=== PATIENT | male | born 1960 | race Caucasian/White ===

== ENCOUNTER → 2017-03-10 12:10 | Outpatient (CLI) | payer OTHER | END | disposition home or self-care (01) | LOC: D.CT 12:10 | DX: I71.4 Abdominal aortic aneurysm, without rupture (principal) ==

== ENCOUNTER → 2017-04-21 12:35 | Outpatient (CLI) | payer OTHER | END | disposition home or self-care (01) | LOC: D.US 12:35 | DX: I65.23 Occlusion and stenosis of bilateral carotid arteries (principal) ==

== ENCOUNTER 2017-05-20 05:00 | Inpatient (IN) | payer OTHER ==
--- NOTE | 2017-05-14 11:34 | HP ---
PATIENT: TRENT ALLISON MEDICAL RECORD: [id number] ACCOUNT: [id number] LOCATION:[facility] : 60 ADMISSION DATE: 05/20/17 HISTORY AND PHYSICAL EXAMINATION TRENT Hercules (57yo, M) ID# [id number]. Date/Time04/14/2017 01:44KJIWY08/09/[address] [place] [address] Dept.[facility] ClinicProviCesar JAVIER MDInsuranceMed Primary: [facility] [employer] Insurance # : [id number] Policy/Group # : [id number] Referring Provider Name : MENA TAM Employer Name : [email or web address] Prescription: [employer] - This member could not be found in the payer's files. Please verify coverage and all member demographic information. Chief Complaint AAA, abdominal aortic aneurysm Patient's Care Team Referring Provider (): MENA TAM: [address] [place] [phone], , Patient's Pharmacies [facility] (ERX): [address] [place] [phone], , Vitals BP:134/88 sitting L arm 04/14/2017 01:31 pmHR:88R/R 04/14/2017 01:31 pmHt:5 ft 9 in 04/14/2017 01:30 pmWt:195 lbs 04/14/2017 01:28 pmBMI:28.8 04/14/2017 01:30 pmAllergies Reviewed Allergies CODEINE: ItchingMedications Reviewed Medications aspirin 325mg daily04/14/17 enteredCindy Brownatorvastatin 40 mg tablet Take 1 tablet(s) every day by oral route.04/12/17 enteredKathy Wilsonlisinopril 20 mg tablet Take 1 tablet(s) every day by oral route.04/12/17 enteredKathy Wilsonmetoprolol succinate ER 100 mg tablet,extended release 24 hr Take 1 tablet(s) every day by oral route.04/12/17 enteredKathy WilsonNitrostat 0.[address] 1 tablet(s) by sublingual route as directed.04/14/17 Tod PearlPlavix 75 mg tablet Take 1 tablet(s) every day by oral route.04/14/17 Tod PearlProblems Reviewed Problems Abdominal aortic aneurysm without rupture - Onset: 04/12/2017 Family History Discussed Family History Father- Diabetes mellitus - Heart diseaseSocial History Discussed Social History Cardiology Family history of heart disease?: Y Smoking Status: Current every day smoker Smoker (1 PPW) Has smoked since age: 20 High Cholesterol: Y High blood pressure: Y HISTORY AND PHYSICAL [id number] TRENT ALLISON Exercise level: Occasional Overweight: Y Obese: Y Diabetes: N Alcohol intake: None Diet: Regular Marital status: Is blood transfusion acceptable in an emergency?: Y Tobacco-years of use: (Notes: since age 20) Surgical History Reviewed Surgical History Stent placemt retro carotid - 10/17/2003 Hernia repair w/mesh - 10/17/1998 Past Medical History Discussed Past Medical History Coronary Artery Disease: Y Hyperlipidemia: Y Hypertension: Y Documents for Discussion N/A Screening None recorded. HPI abdominal aortic aneurysm Coronary artery disease status post ROS Patient reports arthralgias/joint pain but reports no muscle aches, no muscle weakness, no back pain, and no swelling in the extremities. He reports no fever, no night sweats, no significant weight gain, no significant weight loss, and no exercise intolerance. He reports no dry eyes, no irritation, and no vision change. He reports no difficulty hearing and no ear pain. He reports no frequent nosebleeds and no nose/sinus problems. He reports no sore throat, no bleeding gums, no snoring, no dry mouth, no mouth ulcers, no or a l abnormalities, and no teeth problems. He reports no jugular vein distension and no swollen glands. He reports no chest pain, no arm pain on exertion, no shortness of breath when walking, no shortness of breath when lying down, no palpitations, and no kn o wn heart murmur. He reports no cough, no wheezing, no shortness of breath, and no coughing up blood. He reports no abdominal pain, no vomiting, normal appetite, no diarrhea, not vomiting blood, no nausea, and no constipation. He reports no incontinence, n o difficulty urinating, no hematuria, and no increased frequency. He reports no abnormal mole, no jaundice, and no rashes. He reports no loss of consciousness, no weakness, no numbness, no seizures, no dizziness, and no headaches. He reports no depression, no sleep disturbances, feeling safe in relationship, and no alcohol abuse. He reports no fatigue. He reports no swollen glands and no bruising. He reports no runny nose, no sinus pressure, no itching, no hives, and no frequent sneezing. ROS as noted in the HPI Physical Exam Patient is a 57-year-old male. Constitutional: General Appearance well nourished and developed and healthy-appearing. Level of Distress NAD. Ambulation ambulating normally. Cardiovascular: Apical Impulse not displaced or no thrill. Heart Auscultation normal s1 and s2; no murmurs, rubs, or gallops; and RRR. Arterial Pulses no abdominal aorta HISTORY AND PHYSICAL [id number] ALLISON,TRENT RAY bruits, femoral bruits, or popliteal bruits and 2+ bilateral, carotid 2+ bilateral, femoral 2+ bilateral, popliteal 2+ bilateral, and dorsalis p rebekah 2+ bilateral. Edema no edema or varicosities. Lungs: Repiratory Effort no dyspnea. Percussion no hyperresonance or dullness or flatness. Auscultation no wheezing, rhonchi, or rales / crackles and breathing sounds normal, good air movement, and CTA except as noted. Abdomen: Bowl Sounds normal. Inspection and Palpation no tenderness, guarding, masses, or rebound tenderness and soft and non-distended; abdominal aortic aneurysm nontender. Liver non-tender and no hepatomegaly. Spleen non-tender and no splenomegaly. Hernia none palpable. Musculoskeletal System: Gait And Stance normal gait and stance. Digits and Nails normal nails and no cyanosis. Neurologic: Cranial Nerves grossly intact. Reflexes DTRs 2+ bilaterally throughout. Sensation grossly intact. Lymph Nodes: Lymph Nodes no cervical LAD, supraclavicular LAD, axillary LAD, or inguinal LAD. Eyes: Lids and Conjunctivae no discharge or pallor and non-injected. Pupils PERRLA. Cornea grossly intact. EOM EOMI. Lens clear. Sclerae non-icteric. Neck: Neck no masses, enlarged lymph nodes, or carotid bruits and supple and trachea midline. Thyroid no enlargement or nodules and non-tender. Skin: Inspection and Palpation no rash, lesions, ulcers, jaundice, or abnormal nevi. Assessment / Plan abdominal aortic aneurysm Dental abscess 1. Abdominal aortic aneurysm without rupture I71.4: Abdominal aortic aneurysm, without rupture ABDOMINAL AORTIC ANEURYSM: CARE INSTRUCTIONS Discussion Notes needs dental work done before aneurysm repair Need carotid Doppler studies I have discussed his disease process with him and his in detail as well as the alternative methods of treatment. We discussed abdominal aortic aneurysm repair including the expected benefits and risk which include bleeding, infection, stroke, , and the imponderables. He understands all the above and wishes to proceed with planned procedure. HISTORY AND PHYSICAL [id number] TRENT ALLISON EDWARD MD at 1134 CC: [id number] DICTATION DATE: 04/14/17 1330 SALES AND MARKETING ASSOCIATE: KARISSA 05/13/17 1408 PRE IN [facility] [address] [place] [address]
[2017-05-19 09:53] LABS: BASOPHILS 0.5 % (0-2); EOSINOPHILS 5.4 % (0-7); HEMATOCRIT 42.8 % (42.0-54.0); HEMOGLOBIN 14.6 g/dL (13.5-17.5); IMMATURE GRANULOCYTES 0.7 % (0-5); LYMPHOCYTES 34.1 % (15-50); MCH 32.2 pg (26.0-34.0); MCHC 34.1 g/dL (31.0-37.0); MCV 94.3 fL (80.0-100.0); MEAN PLATELET VOLUME 9.8 fL (7.4-10.4); MONOCYTES 10.1 % (2-11); NEUTROPHILS 49.2 % (40-80); PLATELET COUNT 212 10x3/uL (130-400); RBC 4.54 10x6/uL (4.20-6.10); RDW 13.6 % (11.5-14.5); WBC 7.6 10x3/uL (4.8-10.8)
[2017-05-19 09:58] LABS: INR 0.92 (0.85-1.17); PROTIME 12.2 SECONDS (11.6-15.0)
[2017-05-19 10:06] LABS: ALBUMIN 3.1 g/dL (3.4-5.0); ANION GAP 10.1 mmol/L (8-16); BILIRUBIN - TOTAL 0.51 mg/dL (0.2-1.3); CALCIUM 8.2 mg/dL (8.5-10.1); CARBON DIOXIDE 29.3 mmol/L (21.0-32.0); CREATININE - SERUM 1.2 mg/dL (0.6-1.3); POTASSIUM - SERUM 3.4 mmol/L (3.5-5.1); PROTEIN - SERUM 6.6 g/dL (6.4-8.2)
[2017-05-19 10:28] LABS: APPEARANCE CLEAR (CLEAR); BACTERIA FEW /hpf (NONE SEEN); BILIRUBIN NEGATIVE (NEGATIVE); COLOR DK YELLOW (YELLOW); EPITHELIAL CELLS 0-5 /hpf (0-5); GLUCOSE NEGATIVE (NEGATIVE); HYALINE CAST OCC /lpf (NONE SEEN); KETONE NEGATIVE (NEGATIVE); LEUKOCYTE ESTERASE TRACE (NEGATIVE); MUCUS <1+ /lpf (NONE SEEN); NITRITE NEGATIVE (NEGATIVE); PROTEIN NEGATIVE (NEGATIVE); RED CELLS - URINE OCC /hpf (0-5); SPECIFIC GRAVITY 1.015 (1.005-1.020); WHITE CELLS - URINE 0-5 /hpf (0-5)
[~2017-05-20] VITALS: Ht 175.3 cm; Wt 90.7 kg
[2017-05-20] VITALS (54 sets, daily range): BP systolic 98–149; BP diastolic 56–651; BMI 28.8; BMI 29.6
[~2017-05-20 05:00] MED LIST: ASPIRIN325 MG PO; LIPITOR40 MG PO; LISINOPRIL-HCTZ1 T13 PO; NITROQUICK0.4 MG SL; OMEPRAZOLE40 MG PO; TOPROL XL100 MG PO
--- NOTE | 2017-05-20 18:54 | NUR ---
1600-PPP MARIANNA-GROINS SOFT TO TOUCH 1700--PPP MARIANNA-GROINS SOFT TO TOUCH 1800--PPP MARIANNA-GROINS SOFT TO TOUCH-CLEAR LIQUID TRAY-HOB AT 30DEGREES
--- NOTE | 2017-05-20 19:00 | NUR ---
1900: Pt rec'd resting HOB 30 degrees with eyes open to verbal. Pupils CHAZ+ bilat. 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 Pt able to move x4 extrem vs gravity. LOCx4. Pt without c/o pain, tingling, numbness, nausea, or vomitting at this time. Pt breathing 022LNC with RR8-10x with SPO2 98%. Lungs clear bilat with auscultation and MMP with no cyanosis noted. S1S2 regular SR 79 bpm on CM. Right radial ART line transduced to CM with proper w/f with SBP 110-120. LDLSC with Cleviprex infusing as per IV gtts. Bilateral groin incision sites CDI with no bleeding, swelling, oozing, or hematoma noted. Pt dorsalis pedis bilaterally obtainable via doppler. ABD soft NT BSx4 active. Criticore vidal to gravity with >30 cc/hr yellow UOP.
--- NOTE | 2017-05-20 21:00 | NUR ---
2100: Family at bedside. Update provided.
--- NOTE | 2017-05-20 22:00 | NUR ---
2200: Pt repositioned for comfort at this time. Pt remains on Cleviprex gtt with SBP 110's via right radial ART line. Pt without c/o at this time.
--- NOTE | 2017-05-20 23:35 | NUR ---
2335: Pt repositioned for comfort at this time. No change in RESP/CV/NV status.
[2017-05-21] VITALS (81 sets, daily range): BP systolic 93–165; BP diastolic 48–89; Ht 175.3 cm; Wt 90.7 kg
--- NOTE | 2017-05-21 01:30 | NUR ---
0130: Pt resting with eyes closed. Pt remains SR on CM. Continue to titrate Cleviprex as per orders. Incision sites unchanged from assessment. UOP >30cc/hr clear yellow. See I/O.
--- NOTE | 2017-05-21 03:30 | NUR ---
0330: Pt repositioned for comfort at this time. Pt remains with SBP 110-120, continue to titrate Cleviprex as per orders. Pt remains on 022LNC with RR12x with SPO2 96%. No change in periphreal pulses or incision sites from assessment.
--- NOTE | 2017-05-21 05:24 | NUR ---
0520: Pt bilateral groin sites CDI with no s/s of bleeding, oozing, or swelling. Bilateral pulses obtained via doppler with strong quality. Pt denies pain. States groin is sore. Pt SBP remains 130's via Right radial ART line. Cleviprex as per IV gtts.
[2017-05-21 05:29] LABS: HEMATOCRIT 34.3 % (42.0-54.0); MCH 31.7 pg (26.0-34.0); MCHC 33.8 g/dL (31.0-37.0); MCV 93.7 fL (80.0-100.0); MEAN PLATELET VOLUME 9.7 fL (7.4-10.4); RBC 3.66 10x6/uL (4.20-6.10); RDW 13.7 % (11.5-14.5)
[2017-05-21 05:34] LABS: HEMOGLOBIN 11.6 g/dL (13.5-17.5); WBC 10.1 10x3/uL (4.8-10.8)
[2017-05-21 05:40] LABS: CALC OSMOLALITY 276 mosm/kg (275-300); CARBON DIOXIDE 30.1 mmol/L (21.0-32.0); CHLORIDE - SERUM 103 mmol/L (98-107); GLUCOSE 100 mg/dL (74-106); POTASSIUM - SERUM 2.6 mmol/L (3.5-5.1); SODIUM 139 mmol/L (136-145); UREA NITROGEN 9 mg/dL (7-18); eGFR NON AFRICAN AMERICAN 82 mL/min (90-120)
--- NOTE | 2017-05-21 11:13 | OP ---
PATIENT NAME: TRENT ALLISON MEDICAL RECORD: [id number] :60 LOCATION:[facility].CV07 ADMISSION DATE:05/20/17 SURGEON: SANDRINE GAINES MD DATE OF OPERATION: 05/20/2017 SURGEON: Sandrine Gaines MD ANESTHESIA: General endotracheal, Dr. Poon. OPERATION PERFORMED: Endovascular stent repair of abdominal aortic aneurysm. PREOPERATIVE DIAGNOSIS: Abdominal and right iliac artery aneurysm. POSTOPERATIVE DIAGNOSIS: Abdominal and right iliac artery aneurysm. INDICATION FOR OPERATION: Enlarging abdominal and iliac artery aneurysms. FINDINGS OF THE OPERATION: Large abdominal and right iliac artery aneurysm, post-endovascular stent repair, there were no endoleaks and good seal. FLUOROSCOPY TIME: 26 minutes 37 seconds. CONTRAST: Isovue 120 mL. DESCRIPTION OF PROCEDURE: After informed consent, adequate preoperative medication evaluation, the patient was brought to the operating room, placed on the table in the supine position. After induction of general endotracheal anesthesia and application of appropriate monitoring devices, the chest, abdomen and both groins were prepped and draped in a sterile field, utilizing Betadine scrub, alcohol, and Betadine solution. A Betadine-impregnated drape was also used. Oblique incisions were made above the inguinal ligaments bilaterally and dissection carried down to fascia. The ligaments were elevated. The distal iliac and common femoral arteries were dissected free of surrounding structures, surrounding them with vessel loops. The patient was given a calculated dose of heparin. Bilateral 8-Sinhala sheaths were placed. Exchange of Glidewire on the ipsilateral side for a stiff wire was performed and the 25 x 120 x 20 x 40 AFX to bifurcated device was loaded on to the stiff wire. The contralateral wire was also introduced and snared from the contralateral side and brought on to the seal. The AFX device was then deployed above the bifurcation and seated onto the bifurcation. The contralateral limb was deployed by pulling the yellow limb cover and advancing the pigtail over the contrawire until the tip was in contact with the wire lock. The wire was then placed into the descending aorta. The ipsilateral limb was then deployed and retracted. A 25 x 95 suprarenal endograft was then deployed at the renal arteries and placed in the main body. The pigtail catheter was then reinserted into the suprarenal aorta. The main body and right limb were dilated with a Reliant balloon. The left iliac was ballooned with a 10 x 20 balloon. An aortogram was then performed that delineated the right iliac aneurysm and takeoff of the hypogastric and external iliac. Attention was then turned towards the superior portion of the graft, which was lower than I wanted; therefore, another cuff was placed just at the renal arteries and dilated arteriogram demonstrated good seal and Ovation 28 x 45 was then deployed in the right limb to the level of the hypogastric with good coverage of the common iliac vessel. Another aortogram performed demonstrated OPERATIVE REPORT [id number] TRENT ALLISON good flow through both limbs and no endoleaks. The wires, catheters and sheaths were removed. The arteries were closed in standard technique utilizing 2 layers of running 6-0 Prolene. All maneuvers to remove trapped air were performed. The clamps were removed sequentially and there was excellent flow through both. The patient was given a calculated dose of protamine to reverse the heparin and hemostasis was achieved. The wounds were irrigated with copious amounts of antibiotic solution and normal saline. There was no active bleeding. Instrument count and sponge count were correct times 2. Wound was closed in layers utilizing 2-0 Vicryl on deep subcutaneous tissue, 5-0 subcuticular Vicryl on the skin. Sterile dressings were applied. The patient tolerated the procedure well and transferred to cardiovascular recovery in stable condition. 1. Open femoral exposure bilaterally, 76681-00, catheter sheath placement, nonselective into the aorta, 01226-15. 2. Endoluminal AAA repair with unibody device, 56560. A. RAD S&I Endo AAA repair, 40386-92. 3. Extension prosthesis initial vessel, 91315. A. RAD S&I extension prosthesis, 61522-32. 4. Extension prosthesis additional vessel, 21756. A. RAD S&I, 96383-14. 5. Repair of blood vessel to right lower extremity, 11962-94. TRANSINT:[id number] Voice Confirmation ID: [id number] DOCUMENT ID: [id number] SANDRINE GAINES MD at 1113 CC: [id number] DICTATION DATE: 05/20/17 1138 SHAGGER: 05/20/17 1353 ADM IN [facility] [id number] [place] [address]
--- NOTE | 2017-05-21 16:04 | NUR ---
0715-RECIEVED PER FLOW SHEET-CLEVIPREX INFUSING PER PARAMETER AT 7MG-NOTED SR -AWAKE AND ALERT-MARIANNA GROINS SOFT TO TOUCH-PPP WITH FINGER TIPS AND FEET HOT TO TOUCH 0830-30 DEGREE UP FOR CLEAR LIQUID TRAY-NO CHANGES TO GROIN SITES AND FEET REMAIN HOT TO TOUCH 0915-FAMILY AT BEDSIDE 1030-DR JAVIER IN UNIT-ORDERS RECIEVED -GROIN SITES REMAIN SOFT AND MARIANNA PP R RADIAL ADENIKE D/C'D PER PROTOCOL-TIP INTACT-HEMOSTASIS OBTAINED-NO HEMATOMA-GOOD COLOUR TO FINGER TIPS-MARSH CATH D/C'D PER PROTOCOL-TOLERATED WELL BY PT-PLACED ON TELEMETRY PACK-CLEVIPREX TITRATED TO OFF NIBP 110SYS-ASSISTED TO BEDSIDE TOILET- REMAINS IN RM FOR PT COMFORT AND SAFETY 1130-PT UP IN CHAIR 1230-SR ON MONITOR-REG DIET TAKEN 1330-AMBULATING IN CTHNAXB-[id number] 1410-GROINS SOFT TO TOUCH PPP MARIANNA -PT RESTING IN BED 1450-AWAKENED PT FOR BP CHECK-NOTED SYS 165-CLEVIPREX RESTARTED AT 2.5MG PER PARAMETER AND TITRATED 1515-NIBP AT 138/87-PT REMAINS SITTING IN CHAIR-TELEMETRY IN PLACE
--- NOTE | 2017-05-21 19:00 | NUR ---
1900: Pt bilateral groin sites CDI with no s/s of swellling, bleeding, oozing noted. Bilateral dorsalis pedis pulse obtainable via palpation. Pt denies difficulty with elimination. Pt SBP 110-120 with Cleviprex gtt infusing at 2 mg/hr.
--- NOTE | 2017-05-21 21:00 | NUR ---
2100: Pt here at bedside. Update provided. Pt up in geronimo walking without assistance with steady gait.
--- NOTE | 2017-05-21 23:00 | NUR ---
2300: Pt up OOB per self. Pt gait steady and no c/o at this time. Pt remains SR 90's with SBP 110-120's with Cleviprex infusing without change.
[2017-05-22] VITALS (9 sets, daily range): BP systolic 97–138; BP diastolic 55–77
--- NOTE | 2017-05-22 | NUR ---
0000: Pt resting up in chair at this time. Pt room air with LU45-86u with SPO2 92%. Pt SBP <140. Cleviprex off at this time. No change in Incision sites. No bleeding, oozing, or swelling noted.
--- NOTE | 2017-05-22 02:00 | NUR ---
0200: Pt remains up in chair at this time. SBP cont <140 with Cleviprex gtt off. No change in pt RESP/CV/NV status.
--- NOTE | 2017-05-22 04:00 | NUR ---
0400: Pt resting in bed with eyes closed at this time. Pt SPO2 94% at this time on RA. Cleviprex remains off. Pt SR 90's on CM. No change in RESP/CV/NV status.
--- NOTE | 2017-05-22 05:00 | NUR ---
0500: Pt resting up in chair. Pt gets OOB per self and walks with steady gait. Pt uses bathroom per self. Pt denies difficulty with elimination. Pt remains SBP 120's with all gtts off.
--- NOTE | 2017-05-22 10:54 | NUR ---
0700-RECIEVED ASLEEP-SITTING UP IN CHAIR-RESP REG AND EVEN-SR ON PORTABLE TELEMETRY-NIBP IN PLACE 0830-AWAKE AND ALERT-PT STATED NOT ABLE TO SLEEP 0900-NOTED BOUNDING PEDAL PULSES MARIANNA-SOFT GROIN TO TOUCH
[2017-05-22] MEDS ORDERED: PLAVIX75 MG PO (12:44)
--- NOTE | 2017-05-22 12:44 | NUR ---
1215-DR JAVIER AT [facility]-ORDERS RECIEVED AND NOTED-L CVL D/C'D PER PROTOCOL BETADINE OINT APPLIED-DISCHARGE INSTRUCTIONS GIVEN TO BOTH PT AND WITH APPARENT UNDERSTANDING-
[2017-05-22] MEDS ORDERED: POTASSIUM20 MEQ/11 PO (12:46)
--- NOTE | 2017-05-22 13:20 | NUR ---
DISCHARGED VIA WHEELCHAIR-ACCOMPANIED BY
== END 2017-05-22 13:21 | disposition home or self-care (01) | DRG 269 ==
LOC: D.CVICU 05:00 → D.SDCHOLD 05:00 → D.CVICU 11:52
PROVIDERS: ADMIT Internal Medicine Cardiovascular Disease
DX: I71.4 Abdominal aortic aneurysm, without rupture (principal); I72.3 Aneurysm of iliac artery; E78.00 Pure hypercholesterolemia, unspecified; I10 Essential (primary) hypertension; E66.9 Obesity, unspecified; Z68.29 Body mass index [BMI] 29.0-29.9, adult; I25.10 Atherosclerotic heart disease of native coronary artery without angina pectoris; F17.200 Nicotine dependence, unspecified, uncomplicated

== ENCOUNTER 2017-07-25 10:20 | Outpatient (CLI) | payer OTHER ==
--- NOTE | ~2017-07-25 | HEMODYNAMI ---
PATIENT:TRENT ALLISON MEDICAL RECORD: [id number] : 60 LOCATION[facility] [place] [facility] [id number] ADMISSION DATE: 07/25/17 Generatedon:07/25/201716:13 Patient name: TRENT ALLISON Patient #: [id number] SSN: : 1960 Date of study: 07/25/2017 Page: Of Hemodynamic Procedure Report Patient Data Patient Demographics Procedure consent was obtained First Name: TRENT Gender: Male Last Name: KEEGAN : 1960 Middle Initial: BRIAN Age: 57 year(s) Patient #: [id number] Race: Unknown Additional ID: [id number] Contact details Address: [address] [place], [place] [address] State: [place] City: [place] Zip code: [address] Admission Admission Data Admission Date: 07/25/2017 Admission Time: 12:44 Room #: D.2116 Procedure Procedure Types Cath Procedure Diagnostic Procedure LHC LHC w/Coronaries PCI Procedure Coronary Stent Initial Miscellaneous Procedures Moderate Sedation up to 30 minutes Peripheral Cath Diagnostic Procedure Cath Peripheral Shrjw-Xbchbxh-Btk-Off Procedure Description Procedure Date Procedure Date: 07/25/2017 Procedure Start Time: 15:52 Procedure End Time: 16:10 Procedure Staff Name Function Tisha Xie RT Scrub Gianfranco Salcedo MD Performing Physician Saray Long MD Ordering physician Wolf Helms RN Nurse Erika Covarrubias RT Monitor Procedure Data Cath Procedure Fluoroscopy Diagnostic fluoroscopy Total fluoroscopy Time: 4.4 time: 4.4 min min Diagnostic fluoroscopy Total fluoroscopy dose: dose: 1038 mGy 1038 mGy Contrast Material Contrast Material Type Amount (ml) Isovue 300 129 Entry Location Entry Primary Successful Side Size Upsize Upsize Entry Closure Succes sful Closure Location (Fr) 1 (Fr) 2 (Fr) Remarks Device Remarks Femoral Right 5 Fr 6 Fr Exoseal artery Short Estimated blood loss: 5 ml Diagnostic catheters Device Type Used For End Catheter Placement Cordis 5Fr Pigtail LV Angiography Catheter (MP) Cordis 5Fr JL 4.0 Left Coronary Catheter (MP) Angiography Diagnostic Infinity 5Fr Right Coronary 3DRC catheter Angiography Procedure Complications No complications Procedure Medications Medication Administration Route Dosage 0.9% NaCl I.V. 100 ml/hr Oxygen NC 2 l/min Heparin Flush Bag added to field 2 bags (1000units/500ml NS) Lidocaine 2% added to field 20 Benadryl I.V. 50 mg Versed I.V. 2 mg Fentanyl I.V. 100 mcg Heparin Bolus I.V. 5000 units Hemodynamics Rest Heart Rate: 63 (bpm) Pressure Samples Time Site Value (mmHg) Purpose Heart Use Rate(bpm) 15:52 LV 95/12,16 Snapshot 67 Snapshots Pre Cath Intra NCS Post Cath Vital Signs Time Heart Resp SPO2 etCO2 WD5azmg NIBP (mmHg) Rhythm Pain Sedatio n Rate (ipm) (%) (mmHg) (mmHg) Status Level (bpm) 15:42:34 62 14 98 0 0 184/108(163) NSR 0 (11) 10(A) , No pain 15:47:33 69 17 100 0 0 191/116(171) NSR 0 (11) 10(A) , No pain 15:52:28 72 15 97 0 0 161/94(132) NSR 0 (11) 10(A) , No pain 15:57:17 70 14 95 0 0 157/96(132) NSR 0 (11) 9(A) , No pain 16:02:08 68 14 96 0 0 152/94(137) NSR 0 (11) 9(A) , No pain 16:06:57 72 19 97 0 0 168/97(140) NSR 0 (11) 10(A) , No pain Medications Time Medication Route Dose Verified Delivered Reason Notes Effectiveness by by 15:47:36 0.9% NaCl I.V. 100 Wolf Wolf Per physician ml/hr Scooter Helms RN RN 15:47:49 Oxygen NC 2 Wolf Wolf Per physician l/min Scooter Helms RN RN 15:48:05 Heparin Flush added 2 Wolf Wolf used for Bag to bags Scooter Helms procedure (1000units/500ml field ARIELLE RN NS) 15:48:25 Lidocaine 2% added 20ml Wolf Wolf for local to vial Scooter Helms anesthetic field GUZMÁN RN 15:48:42 Benadryl I.V. 50 mg Wolf Wolf Per physician Scooter Helms RN RN 15:52:28 Versed I.V. 2 mg Wolf Wolf for sedation Scooter Helms RN RN 15:52:42 Fentanyl I.V. 100 Wolf Wolf for sedation mcg Scooter Helms RN RN 16:03:28 Heparin Bolus I.V. 5000 Wolf Wolf for units Scooter Helms anticoagulation RN summer internship Log Time Note 15:24:03 Time tracking: Regular hours 15:24:03 Tisha Counts RT(R) sent for patient. Start room use. 15:24:08 Plan of Care:Hemodynamics will remain stable., Cardiac rhythm will remain stable., Comfort level will be maintained., Respiratory function will remain adequate., Patient/ family verbilizes understanding of procedure., Procedure tolerated without complication., Recovers from procedure without complications.. 15:41:20 Patient received from Med II to CCL 1 Alert and oriented. Tansferred to table in Supine position. 15:41:21 Warm blankets applied, and carole hugger turned on for patient comfort. 15:41:22 Correct patient and procedure confirmed by team. 15:41:24 Signed procedure consent form obtained from patient. 15:41:26 ECG and BP/O2 sat monitors applied to patient. 15:41:27 Vital chart was started 15:41:29 Baseline sample Acquired. 15:41:37 Rhythm: sinus rhythm 15:41:39 Full Disclosure recording started 15:41:44 H&P Date Dictated: 07/25/2017 New H&P dictated by physician.. 15:41:46 Pre-procedure instructions explained to patient. 15:41:47 Pre-op teaching completed and patient verbalized understanding. 15:41:49 Family unavailable. 15:42:02 Is the patient allergic to Iodine/contrast media? No. 15:42:04 Was the patient premedicated? No 15:42:05 Is patient on blood thinner?Yes 15:42:58 ACC The patient was administered the following blood thiners within the last 24 hours: ACCPlavix 15:43:03 Patient diabetic? No. 15:43:06 Previous problem with sedation/anesthesia? No ? 15:44:19 Snore? Yes 15:44:21 Sleep apnea? No 15:44:22 Opens mouth fully? Yes 15:44:22 Deviated septum? No 15:44:23 Sticks out tongue? Yes 15:44:25 Airway obstruction? No ? 15:44:28 Dentures? No ? 15:45:44 Pre procedure: right dorsailis pedis pulse 1+ Palpable, but thready & weak; easily obliterated 15:45:46 Pre procedure: left dorsailis pedis pulse 1+ Palpable, but thready & weak; easily obliterated 15:45:48 Patient pain scale 0/10 ?. 15:45:51 Modified Bijan's test Radial > 7 seconds. 15:46:06 IV patent on arrival in left forearm with 0.9% NaCl at [facility]. 15:47:36 0.9% NaCl 100 ml/hr I.V. was administered by Wolf Helms RN; Per physician; 15:47:49 Oxygen 2 l/min NC was administered by Wolf Helms RN; Per physician; 15:48:05 Heparin Flush Bag (1000units/500ml NS) 2 bags added to field was administered by Wolf Helms RN; used for procedure; 15:48:25 Lidocaine 2% 20ml vial added to field was administered by Wolf Helms RN; for local anesthetic; 15:48:42 Benadryl 50 mg I.V. was administered by Wolf Helms RN; Per physician; 15:50:46 Zero performed for pressure channel P1 15:50:50 Lab results completed and on chart. 15:50:54 Right groin area was prepped with chlora-prep and draped in sterile fashion 15:50:55 Sharps counted by scrub and verified by R.N. 15:50:55 Alarms reviewed by R. N. 15:50:56 --------ALL STOP TIME OUT------ 15:50:56 Physician arrived 15:50:57 Final Timeout: patient, procedure, and site verified with staff and physician. All members of the team are in agreement. 15:50:59 Right groin site verified by team. 15:51:03 Physical assessment completed. ASA score P 2 - A patient with mild systemic disease as per Gianfranco Salcedo MD. 15:51:08 Sedation plan: IV Moderate Sedation Versed, Fentanyl 15:51:19 Use device set Femoral Dx 15:51:20 Medline Cath Pack opened to sterile field. 15:51:20 Bag Decanter opened to sterile field. 15:51:20 Acist Syringe opened to sterile field. 15:51:21 Terumo 5Fr [place] Sheath opened to sterile field. 15:51:22 St Fan 260cm J .035 wire opened to sterile field. 15:51:23 Diagnostic Infinity 5Fr Multipack catheter opened to sterile field. 15:51:23 Acist Manifold opened to sterile field. 15:51:23 Acist Hand Control opened to sterile field. 15:51:24 Tegaderm 4 x 4 opened to sterile field. 15:52:03 Procedure started. 15:52:06 Local anesthetic to right femoral artery with Lidocaine 2% by Gianfranco Salcedo MD.INITIAL ACCESS ONLY 15:52:16 A 5 Fr sheath was inserted into the Right Femoral artery 15:52:18 PERCUTANEOUS ENTRY 19GA needle opened to sterile field. 15:52:23 A Cordis 5Fr Pigtail Catheter (MP) was advanced over the wire and used for LV Angiography. 15:52:28 Versed 2 mg I.V. was administered by Wolf Helms RN; for sedation; 15:52:41 LV hemodynamics recorded. 15:52:42 LV gram done using DOLAN 15:52:42 Fentanyl 100 mcg I.V. was administered by Wolf Helms RN; for sedation; 15:52:44 Injector settings: Ml/sec: 5, Volume: 15, 15:52:51 EF : 50 % 15:53:50 Abdominal angiogram w/ runoff was performed. 15:54:26 Catheter removed. 15:54:36 A Cordis 5Fr JL 4.0 Catheter (MP) was advanced over the wire and used for Left Coronary Angiography. 15:56:11 LCA angiography performed. 15:56:14 Injector settings: Ml/sec: 3, Volume: 6, 15:56:41 Catheter removed. 15:56:56 A Diagnostic Infinity 5Fr 3DRC catheter was advanced over the wire and used for Right Coronary Angiography. 15:57:30 RCA angiography performed. 15:57:34 Injector settings: Ml/sec: 3, Volume: 6, 15:58:29 Catheter removed. 15:58:31 Proceeding to intervention. 15:58:51 Terumo 6Fr [place] Sheath opened to sterile field. 15:58:52 Stapleton Whisper J 300cm 0.014 guide wire opened to sterile field. 15:58:53 [employer] BasixCompak Inflation Kit opened to sterile field. 16:00:35 Sheath upsized to a 6 Fr Short. 16:00:49 Cordis 6FR XB 4.0 guide catheter opened to sterile field. 16:00:58 6 Fr XB 4 guide catheter was inserted over the wire 16:01:03 Guide Catheter removed. unable to cannulate vessel. 16:01:09 Cordis 6FR XB 3.5 guide catheter opened to sterile field. 16:02:02 WHISPER wire advanced. 16:03:12 Wire advanced across lesion. 16:03:28 Heparin Bolus 5000 units I.V. was administered by Wolf Helms RN; for anticoagulation; 16:04:43 Inflation Number: 1 A [place] RX 2.25 x 18 stent was prepped and advanced across the Mid LAD. The stent was deployed at 15 NITA for 0:10 (min:sec). 16::49 Inflation number: 2 The stent balloon was then re-inflated across the Mid LAD to 17 NITA for 0:10 (min:sec). 16:04:57 Stent catheter was removed intact over wire. 16:06:30 Inflation Number: 1 A Gaston OTW 2.5 x 18 stent was prepped and advanced across the Prox LAD. The stent was deployed at 17 NITA for 0:10 (min:sec). 16:08:01 Stent catheter was removed intact over wire. 16:08:02 Guide catheter removed. 16:08:02 Wire removed. 16::52 Cordis 6Fr Exoseal opened to sterile field. 16:09:06 Sheath removed intact; hemostasis achieved with Exoseal to the Right Femoral artery. 16:09:10 Procedure ended.(Physican Out) 16:09:23 Fluoroscopy time 04.40 minutes. 16::41 Fluoroscopy dose: 1038 mGy 16:: Flurop Dose total: 1038 16::45 Contrast amount:Isovue 300 129ml. 16:09:47 Sharps counted by scrub and verified by R.N. 16::49 Insertion/operative site no bleeding no hematoma. 16::52 Post-op/insertion site Right Femoral artery dressed using a 4 x 4 and Tegaderm. 16:09:55 Post right femoral artery:stable 16:09:57 Post Procedure Pulses reassessed and unchanged 16:10:00 Post procedure rhythm: unchanged. 16:10:02 Estimated blood loss: 5 ml 16:10:04 Post procedure instruction explained to patient.Patient verbalizes understanding. 16:10:05 Patient needs reinforcement of post procedure teaching. 16:10:36 Procedure type changed to Cath procedure, Diagnostic procedure, LHC, LHC w/Coronaries, PCI procedure, Coronary Stent Initial, Miscellaneous Procedures, Moderate Sedation up to 30 minutes, Peripheral Cath Diagnostic Procedure, Cath Peripheral, Vxidm-Akozsji-Kkd-Off 16:10:38 Procedure and supply charges have been captured, reviewed, submitted and are correct. 16:10:43 Procedure Complication : No complications 16:10:45 Vital chart was stopped 16:10:46 See physician's report for complete and final results. 16:10:50 Report given to Med II. 16:10:52 Patient transfered to Med II with Stretcher. 16:10:54 Full Disclosure recording stopped 16:10:54 Procedure ended. 16:11:00 ACC-PCI Only Patient was given prescriptions, or instructed by Gianfranco Salcedo MD to start/continue the following medications upon discharge: Plavix 16:11:01 End room use (Document Last) Intervention Summary Intervention Notes Time ActionType Lesion and Equipment Action# Pressure Duration Attributes Used 16:04:43 Place stent Mid LAD [place] RX 1 15 00:10 2.25 x 18 stent 16:04:49 Reinflate Mid LAD Gaston RX 2 17 00:10 stent 2.25 x 18 balloon stent 16:06:30 Place stent Prox LAD Gaston OTW 1 17 00:10 2.5 x 18 stent Device Usage Item Name Manufacture Quantity Catalog Hospital Part Current Mini mal Lot# / Number Charge Number Stock Stock Serial# Code Acist Acist 1 13840 062420 162359 646511 20 Syringe [employer] Bag Decanter Microtek 1 2001S 363015 15939 189222 5 Medical Inc. Medline Cath Cardinal 1 [id number] 670189 91414 233536 5 [employer] Health Terumo 5Fr Terumo 1 [id number] 089735 125375 154343 [address] [place] [address] Fan [address] Fan 1 [id number] 524657 618744 133544 30 260cm J .035 wire Acist Hand Acist 1 73541 683070 688372 927317 5 Control [employer] Inc Acist Acist 1 07489 979364 073086 543775 5 Manifold Medical Systems Inc Diagnostic Cardinal 1 [id number] 915615 03313 770003 30 Infinity 5Fr Health Multipack catheter Tegaderm 4 x 3M 1 [id number] 963916 941206 286490 5 4 PERCUTANEOUS [facility] 1 [id number] 622200 107875 5 [id number] ENTRY 19GA needle Cordis 5Fr Cardinal 1 284126 5 Pigtail Health Catheter (MP) Cordis 5Fr Cardinal 1 236655 5 JL 4.0 Health Catheter (MP) Diagnostic Cardinal 1 [id number] 034281 720867 971749 9 Infinity 5Fr Health 3DRC catheter Terumo 6Fr Terumo 1 [id number] 292163 898336 591263 40 [place] Sheath Stapleton Stapleton 1 [id number] 995035 200406 121329 5 Whisper J Vascular 300cm 0.014 guide wire Merit Merit 1 WS7723 347489 925459 537098 15 [employer] Medical Inflation Kit Cordis 6FR Cardinal 1 [id number] 995188 077775 764896 2 XB 4.0 guide Health catheter Cordis 6FR Cardinal 1 [id number] 349612 490610 318026 2 XB 3.5 guide Health catheter Gaston RX 2.25 Medtronic 1 [id number] 117788 8824576 213201 5 [id number] x 18 stent Gaston OTW 2.5 Medtronic 1 [id number] 681898 14000 308064 5 [id number] x 18 stent Cordis 6Fr Cardinal 1 [id number] 263488 290351 103378 10 [facility] Working Equity Signature Audit [place] Stage Time Signature Unsigned Intra-Procedure 07/25/2017 Erika Covarrubias 4:13:28 PM RT(R) Signatures Monitor : Erika Covarrubias RT Signature : Date : Time : [facility] [address] [place] [address]
[~2017-07-25 10:20] MED LIST changes: +PLAVIX75 MG PO; +POTASSIUM20 MEQ/11 PO
[2017-07-25 11:06] LABS: BASOPHILS 0.3 % (0-2); EOSINOPHILS 3.7 % (0-7); HEMATOCRIT 40.1 % (42.0-54.0); HEMOGLOBIN 13.7 g/dL (13.5-17.5); IMMATURE GRANULOCYTES 0.7 % (0-5); LYMPHOCYTES 30.1 % (15-50); MCH 32.7 pg (26.0-34.0); MCHC 34.2 g/dL (31.0-37.0); MCV 95.7 fL (80.0-100.0); MEAN PLATELET VOLUME 9.4 fL (7.4-10.4); MONOCYTES 9.4 % (2-11); NEUTROPHILS 55.8 % (40-80); RBC 4.19 10x6/uL (4.20-6.10); RDW 14.3 % (11.5-14.5); WBC 6.1 10x3/uL (4.8-10.8)
[2017-07-25 11:07] LABS: PLATELET COUNT 207 10x3/uL (130-400)
[2017-07-25 11:29] LABS: ALBUMIN 3.3 g/dL (3.4-5.0); ALKALINE PHOSPHATASE 92 U/L (46-116); ALT (SGPT) 21 U/L (10-68); CALC OSMOLALITY 278 mosm/kg (275-300); CALCIUM 8.9 mg/dL (8.5-10.1); CARBON DIOXIDE 22.5 mmol/L (21.0-32.0); CHLORIDE - SERUM 107 mmol/L (98-107); CREATININE - SERUM 1.3 mg/dL (0.6-1.3); GLUCOSE 92 mg/dL (74-106); POTASSIUM - SERUM 3.9 mmol/L (3.5-5.1); PROTEIN - SERUM 7.2 g/dL (6.4-8.2); SODIUM 139 mmol/L (136-145); UREA NITROGEN 16 mg/dL (7-18); eGFR NON AFRICAN AMERICAN 60 mL/min (90-120)
[2017-07-25 11:40] LABS: CKMB 1.1 U/L (0.0-3.6); CREATINE KINASE 90 UL (21-232); TROPONIN-I < 0.017 ng/mL (0.000-0.060)
[2017-07-25 12:26] LABS: CHOL - HDL RATIO 5.4 ratio (2.3-4.9); LDL-HDL RATIO 3.3 ratio (1.5-3.5)
--- NOTE | 2017-07-25 14:29 | NUR ---
TRANSFER FROM ER BY W/C. PARTHINTED TO ROOM. CALL LIGHT IN REACH. WILL CONT. PLAN OF CARE.
[2017-07-25 14:49] VITALS: BP 166/100; BMI 29.6
--- NOTE | 2017-07-25 15:16 | NUR ---
CONSENTS SIGNED FOR [facility]. WILL CONT. PLAN OF CARE.
--- NOTE | 2017-07-25 16:30 | NUR ---
BACK FROM ENVIRONMENTAL TEST TECHNICIAN. VS WNL. RIGHT GROIN STABLE WITHOUT BLEEDING OR HEMATOMA NOTED. WILL MONITOR.
--- NOTE | 2017-07-25 19:47 | NUR ---
IV REMOVED FROM LEFT HAND. PT SIGNS DISCHARGE TEACHING AND VERBALIZED UNDERSTANDING OF POST CATH CARE. PT AND SPOUSE REPEATED BACK TO NURSE THAT HE IS TO RETURN TUESDAY AT 0900 FOR CATH. RT GROIN CDI, NO HEMATOMA NOTED. PP 2+ AND EQUAL BILAT. DENIES ANY C/O PAIN. PT ALLOWED OFF BEDREST AT THIS TIME AND ASSISTED WITH GETTING DRESSED.
--- NOTE | 2017-07-25 20:12 | NUR ---
PT TO PERSONAQL AUTO VIA WC ACCOMPANIED BY SPOUSE. ALL BELONGINGS WITH PT.
--- NOTE | 2017-08-12 16:56 | OP ---
PATIENT NAME: TRENT ALLISON MEDICAL RECORD: [id number] :60 LOCATION:D.OPS ADMISSION DATE: SURGEON: KESHAWN MATTHEW MD DATE OF OPERATION: 07/25/2017 PROCEDURES: 1. Aortofemoral runoff. 2. Abdominal aortography. INDICATIONS: Claudication and peripheral vascular disease. PROCEDURE IN DETAIL: Informed consent was obtained and after detailed explanation of risks, benefits as well as alternative therapies, the patient elected to proceed with angiogram. The right femoral area had a preexisting sheath from cardiac intervention. All catheters exchanged through this sheath. FINDINGS: Abdominal aortography was performed. The catheter was pulled down for aortofemoral runoff. The patient has had stent grafting for abdominal aortic aneurysm. This appears to be in place with no leaks. RIGHT LEG: A. Iliac: The common iliac is replaced with a stent graft which is in normal position with no problems. B. Femoral system: The common and deep femoral are widely patent. The superficial femoral has a 70%-80% stenosis in the mid distal vessel. C. Popliteal and infrapopliteal vessels are patent with 3-vessel runoff to the foot, although diffusely diseased. LEFT LEG: A. Iliac. The common iliac is replaced with a stent graft, this is in normal position. The remainder of the iliacs have moderate irregularities. B. Femoral system: The common and deep femoral are widely patent. Superficial femoral has multiple areas of 80+ percent stenosis throughout the mid distal portion of the vessel. C. Popliteal and infrapopliteal vessels are patent with good 3-vessel runoff to the foot, although diffusely diseased. OVERALL IMPRESSION: Bilateral superficial femoral artery disease. This would have to be approached in an antegrade fashion due to the stent graft. TRANSINT:[id number] Voice Confirmation ID: [id number] DOCUMENT ID: [id number] KESHAWN MATTHEW MD at 1652 CC: [id number] DICTATION DATE: 07/25/17 1613 FOREST SCIENCE PROFESSOR: 07/25/17 1950 DEP CLI 07/25/17 [facility] [address] [place] [id number]
--- NOTE | 2017-08-12 16:56 | HP ---
PATIENT: TRENT ALLISON MEDICAL RECORD: [id number] ACCOUNT: [id number] LOCATION:[place] : 60 ADMISSION DATE: 07/25/17 HISTORY AND PHYSICAL EXAMINATION ADMITTING DIAGNOSES: 1. Angina. 2. Peripheral vascular disease. 3. Claudication 4. Hypertension. 5. Hyperlipidemia. 6. Gastroesophageal reflux disease. HISTORY OF PRESENT ILLNESS: This is a gentleman who was seen by Dr. Triplett for increasing chest pain and was scheduled for stress test. He continued to have episodes of chest pain relieved with sublingual nitro. Multiple episodes this morning, now presents to the Emergency Room. His EKG is with no acute changes. He as well has claudication. He was hold on an ultrasound that he had significant disease of the left SFA area. This has not been addressed. PHYSICAL EXAMINATION: GENERAL APPEARANCE: Well-nourished, well-developed, appears stated age. Level of distress, comfortable. PSYCHIATRIC: Mental status, alert, normal affect. Orientation, oriented to time, place and person. EYES: Lids and conjunctiva, noninjected. No discharge, no pallor. ENT: Lips, teeth, gums, normal dentition. Oropharynx, no cyanosis, no pallor. NECK: Carotid arteries, bilateral normal upstroke, no bruits, no thrills. JUGULAR VEINS: No jugular venous pressure or distention. CERVICAL LYMPH NODES: Nontender, nonenlarged. THYROID: Not enlarged. Nontender. No nodules. LUNGS: Respiratory effort, unlabored. CHEST: Normal curvature. No thoracic deformity. No chest wall tenderness. Percussion, resonant. Auscultation, clear. No wheezes, no rales, no rhonchi. CARDIOVASCULAR: Precordial exam, nondisplaced. No heaves or pericardial thrills. Rate and rhythm, regular. Heart sounds, normal S1, normal S2. No S3, no gallop, no rub. Systolic murmur, not heard. Diastolic murmur, not heard. EXTREMITIES: No cyanosis, no edema. Peripheral pulses, full and equal in all extremities, except as noted. No bruits appreciated. ABDOMEN: Soft, nondistended. Normal aorta. No bruit. Nontender. No masses. Liver, nontender, no hepatomegaly. Spleen, nontender, no splenomegaly. MUSCULOSKELETAL: No joint tenderness. No joint swelling. No erythema. NEUROLOGICAL: Normal gait, normal strength, normal tone. SKIN: Warm and dry. REVIEW OF SYSTEMS: The patient reports easy bruising but reports no swollen glands. The patient reports no fever, no night sweats, no significant weight gain, no significant weight loss. No significant exercise tolerance. The patient reports no dry eyes, no irritation, no vision change. Patient reports no difficulty hearing and no ear pain. Patient reports no frequent nose bleeds or nose and sinus problems. Patient reports on arm pain on exertion. No shortness of breath while lying down. No history of heart murmur. Patient reports no cough, no wheezing or coughing up blood. Patient reports no abdominal pain, no vomiting. Normal appetite. No diarrhea and not vomiting blood. No nausea and no constipation. Patient reports no incontinence. No HISTORY AND PHYSICAL [id number] TRENT ALLISON difficulty urinating. No hematuria. No increased frequency. Patient reports no muscle aches. No weakness, no arthralgias, no back pain. No swelling of the extremities. Patient reports no abnormal mole, no jaundice, no rashes. Reports no loss of consciousness. No weakness and no numbness. No seizures, dizziness, or headaches. The patient reports no depression, no sleep disturbance, feeling safe in a relationship and no alcohol abuse. Patient reports on fatigue. Reports no runny nose or sinus pressure. No itching, no hives, and no frequent sneezing. OVERALL IMPRESSION: Increasing anginal chest discomfort. We will proceed with coronary angiography due to the claudication and peripheral vascular disease as well as do aortofemoral runoff. TRANSINT:[id number] Voice Confirmation ID: [id number] DOCUMENT ID: [id number] KESHAWN MATTHEW MD at 1656 CC: [id number] DICTATION DATE: 07/25/17 1218 DESTINATION IMAGINATION COORDINATOR: 07/25/17 1324 DEP CLI 07/25/17 [place] [id number] [place] [id number]
--- NOTE | 2017-08-12 16:56 | OP ---
PATIENT NAME: TRENT ALLISON MEDICAL RECORD: [id number] :60 LOCATION:D.OPS ADMISSION DATE: SURGEON: KESHAWN MATTHEW MD DATE OF OPERATION: 07/25/2017 PROCEDURES: 1. PTCA stent LAD. 2. Left heart catheterization. 3. Selective coronary angiography. 4. Left ventriculogram. INDICATIONS: Unstable angina and coronary artery disease. PROCEDURE IN DETAIL: After informed consent was obtained and after detailed explanation of risks, benefits as well as alternative therapies, the patient elected to proceed with angiogram and angioplasty. The right femoral area was prepped and draped in normal sterile fashion. The right femoral artery was cannulated via modified Seldinger technique with placement of 6-Taiwanese sheath. All catheters exchanged through this sheath. FINDINGS: The left ventriculogram was performed in standard 30-degree DOLAN view, reveals preserved cardiac wall motion, ejection fraction 50%. SELECTIVE CORONARY ANGIOGRAPHY: 1. Left main is with 70% stenosis distally. 2. Left anterior descending has a 90%-95% stenosis times 2. 3. Left circumflex has an 80+ percent stenosis at the ostium followed by 95% stenosis in the mid vessel. 4. Right coronary is small, nondominant. PTCA STENT OF THE LAD: The stents used were 2.25 x 18 and 2.5 x 15, both [place] stents. Result was 0% residual stenosis. OVERALL IMPRESSION: Successful percutaneous transluminal coronary angioplasty stent of the left anterior descending going from 90%-95% initial stenosis to 0% residual. PLAN: For PTCA stent of the left main, left circumflex, ostium and distal circumflex in the near future. 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
== END 2017-07-25 20:12 | disposition home or self-care (01) ==
LOC: OBSVTIME → D.OPS 10:20 → D.ER 10:20 → EDSTATUS 11:00 → D.M2 12:44 → D.ER 12:44 → OBSVTIME 12:44 → D.M2 20:12 → D.OPS 20:12
PROVIDERS: Emergency Medicine; Nurse Practitioner Acute Care
DX: I25.110 Atherosclerotic heart disease of native coronary artery with unstable angina pectoris (principal); K21.9 Gastro-esophageal reflux disease without esophagitis; E78.5 Hyperlipidemia, unspecified; I73.9 Peripheral vascular disease, unspecified

== ENCOUNTER 2017-07-29 08:43 | Outpatient (CLI) | payer OTHER ==
--- NOTE | ~2017-07-29 | HEMODYNAMI ---
PATIENT:TRENT ALLISON MEDICAL RECORD: [id number] : 60 LOCATION:D.CAT ADMISSION DATE: 07/29/17 Generatedon:07/29/201714:55 Patient name: TRENT ALLISON Patient #: [id number] SSN: : 1960 Date of study: 07/29/2017 Page: Of Hemodynamic Procedure Report Patient Data Patient Demographics Procedure consent was obtained First Name: TRENT Gender: Male Last Name: KEEGAN : 1960 Middle Initial: RAY Age: 57 year(s) Patient #: [id number] Race: Unknown Additional ID: [id number] Contact details Address: [address] State: [place] City: [place] Zip code: [address] Admission Admission Data Admission Date: 07/29/2017 Admission Time: 8:43 Procedure Procedure Types Cath Procedure PCI Procedure Coronary Stent Initial x2 Miscellaneous Procedures Moderate Sedation up to 30 minutes Procedure Description Procedure Date Procedure Date: 07/29/2017 Procedure Start Time: 14:34 Procedure End Time: 14:54 Procedure Staff Name Function Gianfranco Salcedo MD Performing Physician Mark Anthony Macias RT Scrub Saniya Grissom RN Nurse Tisha Xie RT Monitor Procedure Data Cath Procedure Fluoroscopy Diagnostic fluoroscopy Total fluoroscopy Time: 7.7 time: 7.7 min min Diagnostic fluoroscopy Total fluoroscopy dose: dose: 1214 mGy 1214 mGy Contrast Material Contrast Material Type Amount (ml) Isovue 300 103 Entry Location Entry Primary Successful Side Size Upsize Upsize Entry Closure Succes sful Closure Location (Fr) 1 (Fr) 2 (Fr) Remarks Device Remarks Femoral Right 6 Fr Exoseal artery Short Estimated blood loss: 10 ml Procedure Complications No complications Procedure Medications Medication Administration Route Dosage Oxygen NC 2 l/min Lidocaine 2% added to field 20 Heparin Flush Bag added to field 2 bags (1000units/500ml NS) 0.9% NaCl I.V. 100 ml/hr Versed I.V. 1 mg Fentanyl I.V. 50 mcg Versed I.V. 1 mg Fentanyl I.V. 50 mcg Heparin Bolus I.V. 5000 units Hemodynamics Rest Heart Rate: 59 (bpm) Snapshots Pre Cath Intra NCS Post Cath Vital Signs Time Heart Resp SPO2 NIBP (mmHg) Rhythm Pain Sedation Rate (ipm) (%) Status Level (bpm) 14:20:42 58 17 99 124/77(92) NSR 0 (11) 10(A) , No pain 14:24:54 63 19 98 120/75(83) NSR 0 (11) 10(A) , No pain 14:29:06 62 19 95 109/70(89) NSR 0 (11) 10(A) , No pain 14:33:16 57 16 96 106/65(80) NSR 0 (11) 9(A) , No pain 14:37:19 66 13 95 121/75(105) NSR 0 (11) 9(A) , No pain 14:41:29 64 15 96 130/77(94) NSR 0 (11) 9(A) , No pain 14:45:43 68 13 94 117/75(102) NSR 0 (11) 9(A) , No pain 14:49:53 67 16 96 113/73(96) NSR 0 (11) 10(A) , No pain 14:54:01 64 16 96 107/75(93) NSR 0 (11) 10(A) , No pain Medications Time Medication Route Dose Verified Delivered Reason Notes Effectiveness by by 14:19:10 Oxygen NC 2 Buffie Buffie used for l/min Praveena Grissom RN procedure 14:19:16 Lidocaine 2% added 20ml Buffie Gianfranco for local to vial Praveena Salcedo MD anesthetic field 14:19:23 Heparin Flush added 2 Buffie Gianfranco used for Bag to bags Praveena Salcedo MD procedure (1000units/500ml field NS) 14:19:31 0.9% NaCl I.V. 100 Buffie Buffie Per physician ml/hr Praveena Grissom RN 14:30:04 Versed I.V. 1 mg Buffie Buffie for sedation Praveena Grissom RN 14:30:10 Fentanyl I.V. 50 Buffie Buffie for sedation mcg Praveena Grissom RN 14:33:38 Versed I.V. 1 mg Buffie Buffie for sedation Praveena Grissom RN 14:33:41 Fentanyl I.V. 50 Saniya Kothari for sedation mcg Praveena Grissom RN 14:34:52 Heparin Bolus I.V. 5000 Saniya Kothari for verifi ed units Praveena Grissom RN anticoagulation with dr salcedo Procedure Log Time Note 14:08:05 Mark Anthony Macias RT(R) (CV) sent for patient. Start room use. 14:08:06 Time tracking: Regular hours 14:08:10 Plan of Care:Hemodynamics will remain stable., Cardiac rhythm will remain stable., Comfort level will be maintained., Respiratory function will remain adequate., Patient/ family verbilizes understanding of procedure., Procedure tolerated without complication., Recovers from procedure without complications.. 14:13:26 Patient received from Pre/Post Procedure Room to CCL 2 Alert and oriented. Tansferred to table in Supine position. 14:13:27 Warm blankets applied, and carole hugger turned on for patient comfort. 14:13:27 Correct patient and procedure confirmed by team. 14:13:28 Signed procedure consent form obtained from patient. 14:13:29 ECG and BP/O2 sat monitors applied to patient. 14:13:30 Full Disclosure recording started 14:19:10 Oxygen 2 l/min NC was administered by Saniya Grissom RN; used for procedure; 14:19:16 Lidocaine 2% 20ml vial added to field was administered by Gianfranco Salcedo MD; for local anesthetic; 14:19:23 Heparin Flush Bag (1000units/500ml NS) 2 bags added to field was administered by Gianfranco Salcedo MD; used for procedure; 14:19:31 0.9% NaCl 100 ml/hr I.V. was administered by Saniya Grissom RN; Per physician; 14:19:35 Vital chart was started 14:22:43 Baseline sample Acquired. 14:22:48 Rhythm: sinus rhythm 14:22:52 H&P Date Dictated: 07/29/2017 Within 30 days and on chart.. 14:22:53 Pre-procedure instructions explained to patient. 14:22:54 Pre-op teaching completed and patient verbalized understanding. 14:22:55 Family in waiting room. 14:22:57 Patient NPO since Midnight. 14:22:59 Is the patient allergic to Iodine/contrast media? No. 14:23:01 Is patient on blood thinner?Yes 14:23:04 ACC The patient was administered the following blood thiners within the last 24 hours: ACCPlavix 14:23:06 Patient diabetic? Yes. 14:24:18 Previous problem with sedation/anesthesia? No ? 14:24:19 Snore? Yes 14:24:20 Sleep apnea? No 14:24:21 Deviated septum? No 14:24:22 Opens mouth fully? Yes 14:24:22 Sticks out tongue? Yes 14:24:24 Airway obstruction? No ? 14:24:25 Dentures? No ? 14:24:28 Pre procedure: right dorsailis pedis pulse 1+ Palpable, but thready & weak; easily obliterated 14:24:31 Pre procedure: left dorsailis pedis pulse 1+ Palpable, but thready & weak; easily obliterated 14:24:33 Patient pain scale 0/10 ?. 14:24:40 IV patent on arrival in left hand with 0.9% NaCl at [facility]. 14:24:53 Lab results completed and on chart. 14:24:57 Bilateral groins area was prepped with chlora-prep and draped in sterile fashion 14:24:59 Alarms reviewed by R. N. 14:24:59 Sharps counted by scrub and verified by R.N. 14:25:04 Use device set Femoral PCI 14:25:05 Acist Syringe opened to sterile field. 14:25:05 Acist Hand Control opened to sterile field. 14:25:05 Bag Decanter opened to sterile field. 14:25:06 Medline Cath Pack opened to sterile field. 14:25:06 Terumo 6Fr Milton Sheath opened to sterile field. 14:25:06 St Fan 260cm J .035 wire opened to sterile field. 14:25:07 Merit BasixCompak Inflation Kit opened to sterile field. 14:25:07 Acist Manifold opened to sterile field. 14:25:08 Tegaderm 4 x 4 opened to sterile field. 14:25:21 Stapleton Fielder XT J 300cm 0.014 guide wire opened to sterile field. 14:25:22 Cordis 6FR XBLAD 4.0 guide catheter opened to sterile field. 14:29:06 Final Timeout: patient, procedure, and site verified with staff and physician. All members of the team are in agreement. 14:29:11 Right groin site verified by team. 14:29:14 Physical assessment completed. ASA score P 2 - A patient with mild systemic disease as per Gianfranco Salcedo MD. 14:29:16 Sedation plan: IV Moderate Sedation Versed, Fentanyl 14:30:04 Versed 1 mg I.V. was administered by Saniya Grissom RN; for sedation; 14:30:10 Fentanyl 50 mcg I.V. was administered by Saniya Grissom RN; for sedation; 14:32:35 Zero performed for pressure channel P1 14:32:40 Zero performed for pressure channel P1 14:32:43 Zero performed for pressure channel P1 14:32:46 Zero performed for pressure channel P1 14:32:50 Zero performed for pressure channel P1 14:32:52 Zero performed for pressure channel P1 14:32:54 Zero performed for pressure channel P1 14:33:38 Versed 1 mg I.V. was administered by Saniya Grissom RN; for sedation; 14:33:41 Fentanyl 50 mcg I.V. was administered by Saniya Grissom RN; for sedation; 14:33:57 Procedure started. 14:34:00 Local anesthetic to right femoral artery with Lidocaine 2% by Gianfranco Salcedo MD.INITIAL ACCESS ONLY 14:34:11 A 6 Fr Short sheath was inserted into the Right Femoral artery 14:34:23 6 Fr XBLAD 4.0. guide catheter was inserted over the wire 14:34:52 Heparin Bolus 5000 units I.V. was administered by Saniya Grissom RN; for anticoagulation; verified with dr salcedo 14:35:14 FIELDER wire advanced. 14:37:52 Inflation number: 1 A Euphora 3.0 x 20 Balloon was prepped and advanced across the Mid CX, then inflated to 13 NITA for 0:09 (min:sec). 14:38:05 Inflation number: 2 The Euphora 3.0 x 20 Balloon was reinflated across the Mid CX, to 13 NITA for 0:05 (min:sec). 14:38:23 Inflation number: 1 The Euphora 3.0 x 20 Balloon was reinflated across the LMCA, to 13 NITA for 0:08 (min:sec). 14:38:47 Balloon removed over the wire. 14:43:01 Quick combo pads placed on patients chest and back. 14:43:03 Inflation Number: 3 A Dover OTW 3.5 x 38 stent was prepped and advanced across the Mid CX. The stent was deployed at 13 NITA for 0:10 (min:sec). 14:43:05 Stent catheter was removed intact over wire. 14:44:24 Inflation Number: 2 A Gaston OTW 3.5 x 15 stent was prepped and advanced across the LMCA. The stent was deployed at 13 NITA for 0:05 (min:sec). 14:44:39 Inflation number: 3 The stent balloon was then re-inflated across the LMCA to 17 NITA for 0:02 (min:sec). 14:45:18 Stent catheter was removed intact over wire. 14:47:24 Inflation Number: 4 A Dover OTW 3.5 x 15 stent was prepped and advanced across the Mid CX. The stent was deployed at 13 NITA for 0:08 (min:sec). 14:47:38 Stent catheter was removed intact over wire. 14:47:39 Wire removed. 14:47:39 Guide catheter removed. 14:47:50 Sheath removed intact; hemostasis achieved with Exoseal to the Right Femoral artery. 14:47:53 Procedure ended.(Physican Out) 14:48:25 Fluoroscopy time 07.70 minutes. 14:48:31 Flurop Dose total: 1214 14:48:31 Fluoroscopy dose: 1214 mGy 14:48:47 Contrast amount:Isovue 300 103ml. 14:48:50 Sharps counted by scrub and verified by R.N. 14:48:52 Insertion/operative site no bleeding no hematoma. 14:48:57 Post-op/insertion site Right Femoral artery dressed using a 4 x 4 and Tegaderm. 14:49:00 Post right femoral artery:stable, clean and dry 14:49:02 Post Procedure Pulses reassessed and unchanged 14:49:05 Post-procedure physical assessment completed. ASA score P 2 - A patient with mild systemic disease as per Gianfranco Salcedo MD. 14:49:08 Post procedure rhythm: unchanged. 14:49:11 Estimated blood loss: 10 ml 14:49:12 Post procedure instruction explained to patient.Patient verbalizes understanding. 14:49:15 Patient needs reinforcement of post procedure teaching. 14:49:45 Procedure type changed to Cath procedure, PCI procedure, Coronary Stent Initial x2, Miscellaneous Procedures, Moderate Sedation up to 30 minutes 14:49:52 Procedure Complication : No complications 14:52:09 Quick Combo opened to sterile field. 14:52:26 Cordis 6Fr Exoseal opened to sterile field. 14:53:35 PERCUTANEOUS ENTRY 19GA needle opened to sterile field. 14:54:32 Procedure and supply charges have been captured, reviewed, submitted and are correct. 14:54:33 Vital chart was stopped 14:54:33 See physician's report for complete and final results. 14:54:36 Report given to Pre/Post Procedure Room. 14:54:40 Patient transfered to Pre/Post Procedure Room with Stretcher. 14:54:49 Procedure ended. 14:54:49 Full Disclosure recording stopped 14:54:53 End room use (Document Last) Intervention Summary Intervention Notes Time ActionType Lesion and Equipment Action# Pressure Duration Attributes Used 14:37:52 Inflate Mid CX Euphora 1 13 00:10 balloon 3.0 x 20 Balloon 14:38:05 Reinflate Mid CX Euphora 2 13 00:05 balloon 3.0 x 20 Balloon 14:38:23 Reinflate LMCA Euphora 1 13 00:08 balloon 3.0 x 20 Balloon 14:43:03 Place stent Mid CX Gaston OTW 3 13 00:10 3.5 x 38 stent 14:44:24 Place stent LMCA Gaston OTW 2 13 00:05 3.5 x 15 stent 14:44:39 Reinflate LMCA Dover OTW 3 17 00:02 stent 3.5 x 15 balloon stent 14:47:24 Place stent Mid CX Gaston OTW 4 13 00:08 3.5 x 15 stent Device Usage Item Name Manufacture Quantity Catalog Hospital Part Current Mini mal Lot# / Number Charge Number Stock Stock Serial# Code Acist Acist 1 19652 890636 999387 224144 20 Syringe Medical Systems Inc Acist Hand Acist 1 45914 542278 500440 744893 5 Control Medical Systems Inc Bag Decanter Microtek 1 2001S 556370 24802 529572 5 Medical Inc. Medline Cath Cardinal 1 [id number] 100982 70925 963379 5 Pack Health Terumo 6Fr Terumo 1 UTH366 578989 730458 330856 [address] Fan St Fan 1 563132 966303 382671 258913 30 260cm J .035 wire Merit Merit 1 DW5054 526026 384355 138391 15 BasEncompass HealthDigiZmart Medical Inflation Kit Acist Acist 1 11811 866022 602669 788650 5 KeyCAPTCHA Medical Systems Inc Tegaderm 4 x 3M 1 1626W 866731 668325 301530 5 4 Stapleton Stapleton 1 [id number] 742665 880495 490981 5 Fielder XT J Vascular 300cm 0.014 guide wire Cordis 6FR Cardinal 1 [id number] 375522 819036 173899 3 XBLAD 4.0 Health guide catheter Euphora 3.0 Medtronic 1 [id number] 324285 033027 593155 5 [id number] x 20 Balloon Gaston OTW 3.5 Medtronic 1 [id number] 208874 5126497 332060 5 [id number] x 38 stent Gaston OTW 3.5 Medtronic 2 [id number] 394291 0322700 201005 5 [id number] x 15 stent [id number] ZenHub 1 [id number] 383168 799185 111166 5 Cordis 6Fr Cardinal 1 EX600 851645 598851 963600 10 [facility] 1 [id number] 521467 998943 5 ENTRY 19GA needle Signature Audit [place] Stage Time Signature Unsigned Intra-Procedure 07/29/2017 Tisha 2:55:04 PM Counts RT(R) Signatures Monitor : Tisha Signature : Counts RT Date : Time : [facility] [address] [facility] [address]
[2017-07-29 09:48] VITALS: BP 119/70; BMI 30.4
[2017-07-29 09:49] LABS: BASOPHILS 0.3 % (0-2); EOSINOPHILS 5.3 % (0-7); HEMATOCRIT 43.9 % (42.0-54.0); HEMOGLOBIN 15.1 g/dL (13.5-17.5); IMMATURE GRANULOCYTES 0.9 % (0-5); LYMPHOCYTES 22.4 % (15-50); MCH 32.5 pg (26.0-34.0); MCHC 34.4 g/dL (31.0-37.0); MCV 94.6 fL (80.0-100.0); MEAN PLATELET VOLUME 9.9 fL (7.4-10.4); MONOCYTES 11.7 % (2-11); NEUTROPHILS 59.4 % (40-80); PLATELET COUNT 206 10x3/uL (130-400); RBC 4.64 10x6/uL (4.20-6.10); WBC 6.6 10x3/uL (4.8-10.8)
[2017-07-29 09:58] LABS: ANION GAP 12.1 mmol/L (8-16); CALCIUM 8.9 mg/dL (8.5-10.1); CARBON DIOXIDE 23.7 mmol/L (21.0-32.0); CREATININE - SERUM 1.3 mg/dL (0.6-1.3); POTASSIUM - SERUM 3.8 mmol/L (3.5-5.1)
--- NOTE | 2017-07-29 15:15 | NUR ---
2L NC, NO RESP DISTRESS NOTED. RIGHT GROIN 6F EXOSEAL CDI, NO BLEEDING OR HEMATOMA NOTED. NO C/O PAIN OR NAUSEA. VSS. FAMILY AT BEDSIDE, CALL LIGHT WITHIN REACH.
--- NOTE | 2017-07-29 15:45 | NUR ---
RIGHT GROIN 6F EXOSEAL CDI, NO BLEEDING OR HEMATOMA NOTED. 2L NC, NO RESP DISTRESS. DENIES ANY PAIN OR NAUSEA. SANDWICH TRAY GIVEN. VSS.
--- NOTE | 2017-07-29 16:00 | NUR ---
RESTING QUIETLY WITH EYES CLOSED. RIGHT GROIN 6F EXOSEAL CDI, NO BLEEDING OR HEMATOMA NOTED. NO C/O AT THIS TIME. CALL LIGHT WIHIN REACH.
--- NOTE | 2017-07-29 17:00 | NUR ---
2L NC, NO RESP DISTRES. RIGHT GROIN 6F EXOSEAL CDI, NO BLEEDING NOTED. DENIES ANY PAIN OR NAUSEA. VSS. WILL CONTINUE TO MONITOR.
--- NOTE | 2017-07-29 18:20 | NUR ---
HOB ELEVATED 30 DEGREES. RIGHT GROIN 6F EXOSEAL CDI, NO BLEEDING OR HEMATOMA NOTED.
--- NOTE | 2017-07-29 18:41 | NUR ---
LEFT WRIST PIV D/C'D WITH CATHETER INTACT, BAND AID TO SITE. UP TO BEDSIDE TO GET DRESSED.
--- NOTE | 2017-07-29 18:47 | NUR ---
TO RESTROOM TO VOID.
--- NOTE | 2017-07-29 18:50 | NUR ---
DISCHARGE INSTRUCTIONS GIVEN, VERBALIZED UNDERSTANDING. TAKEN OUT VIA WHEELCHAIR BY CATH CLEAT FEEDER. LEFT FACILITY WITH AND ALL PERSONAL BELONGINGS.
--- NOTE | 2017-08-12 16:56 | HP ---
PATIENT: TRENT ALLISON MEDICAL RECORD: [id number] ACCOUNT: [id number] LOCATION:YONI : 60 ADMISSION DATE: 07/29/17 HISTORY AND PHYSICAL EXAMINATION ADMITTING DIAGNOSES: 1. Angina. 2. Coronary artery disease. 3. Recent PTCA stent to left anterior descending with concomitant disease of the left main and circumflex. HISTORY OF PRESENT ILLNESS: This is a gentleman who presents with anginal symptomatology, found to have severe 2-vessel coronary disease of the left main, left circumflex and LAD, underwent successful PTCA stent of the LAD now brought back for PTCA stent of the left main and circumflex. PHYSICAL EXAMINATION: GENERAL APPEARANCE: Well-nourished, well-developed, appears stated age. Level of distress, comfortable. PSYCHIATRIC: Mental status, alert, normal affect. Orientation, oriented to time, place and person. EYES: Lids and conjunctiva, noninjected. No discharge, no pallor. ENT: Lips, teeth, gums, normal dentition. Oropharynx, no cyanosis, no pallor. NECK: Carotid arteries, bilateral normal upstroke, no bruits, no thrills. JUGULAR VEINS: No jugular venous pressure or distention. CERVICAL LYMPH NODES: Nontender, nonenlarged. THYROID: Not enlarged. Nontender. No nodules. LUNGS: Respiratory effort, unlabored. CHEST: Normal curvature. No thoracic deformity. No chest wall tenderness. Percussion, resonant. Auscultation, clear. No wheezes, no rales, no rhonchi. CARDIOVASCULAR: Precordial exam, nondisplaced. No heaves or pericardial thrills. Rate and rhythm, regular. Heart sounds, normal S1, normal S2. No S3, no gallop, no rub. Systolic murmur, not heard. Diastolic murmur, not heard. EXTREMITIES: No cyanosis, no edema. Peripheral pulses, full and equal in all extremities, except as noted. No bruits appreciated. ABDOMEN: Soft, nondistended. Normal aorta. No bruit. Nontender. No masses. Liver, nontender, no hepatomegaly. Spleen, nontender, no splenomegaly. MUSCULOSKELETAL: No joint tenderness. No joint swelling. No erythema. NEUROLOGICAL: Normal gait, normal strength, normal tone. SKIN: Warm and dry. REVIEW OF SYSTEMS: The patient reports easy bruising but reports no swollen glands. The patient reports no fever, no night sweats, no significant weight gain, no significant weight loss. No significant exercise tolerance. The patient reports no dry eyes, no irritation, no vision change. Patient reports no difficulty hearing and no ear pain. Patient reports no frequent nose bleeds or nose and sinus problems. Patient reports on arm pain on exertion. No shortness of breath while lying down. No history of heart murmur. Patient reports no cough, no wheezing or coughing up blood. Patient reports no abdominal pain, no vomiting. Normal appetite. No diarrhea and not vomiting blood. No nausea and no constipation. Patient reports no incontinence. No difficulty urinating. No hematuria. No increased frequency. Patient reports no muscle aches. No weakness, no arthralgias, no back pain. No swelling of the extremities. Patient reports no abnormal mole, no jaundice, no rashes. Reports no loss of consciousness. No weakness and no numbness. No seizures, dizziness, HISTORY AND PHYSICAL [id number] ALLISON,TRENT RAY or headaches. The patient reports no depression, no sleep disturbance, feeling safe in a relationship and no alcohol abuse. Patient reports on fatigue. Reports no runny nose or sinus pressure. No itching, no hives, and no frequent sneezing. OVERALL IMPRESSION: Anginal symptomatology with significant disease of the left main and circumflex. We will proceed with transcatheter revascularization of these territories. TRANSINT:[id number] Voice Confirmation ID: [id number] DOCUMENT ID: [id number] KESHAWN MATTHEW MD at 1656 CC: [id number] DICTATION DATE: 07/29/17931 MAINTENANCE SUPERVISOR MECHANICAL: 07/29/17 1049 DEP CLI 07/29/17 [facility] [address] [place] [id number]
--- NOTE | 2017-08-12 16:56 | OP ---
PATIENT NAME: TRENT ALLISON MEDICAL RECORD: [id number] :60 LOCATION:D.CAT ADMISSION DATE: SURGEON: KESHAWN MATTHEW MD DATE OF OPERATION: 07/29/2017 DATE OF SERVICE: 07/29/2017 PROCEDURES: 1. PTCA stent of left main. 2. PTCA stent of left circumflex. 3. Selective coronary angiography. PROCEDURE IN DETAIL: After informed consent was obtained and after a detailed explanation of the risks, benefits as well as alternative therapies, the patient elected to proceed with angiogram and angioplasty. The right femoral area was prepped and draped in normal sterile fashion. Right femoral artery was cannulated via modified Seldinger technique with placement of 6-Indonesian sheath. All catheters exchanged through this sheath. FINDINGS: The left main has 70% to 75% stenosis. Left circumflex has areas of 80% to 90% stenosis. PTCA STENT OF LEFT MAIN AND LEFT CIRCUMFLEX: Left main was addressed with a 3.5 x 15 mm Gaston. The left circumflex with a 3.5 x 15 and 3.5 x 38, both [place] stents. Result was 0% residual stenosis. OVERALL IMPRESSION: Successful percutaneous transluminal coronary angioplasty stent of the left main and left circumflex going up to 90% initial stenosis to 0% residual. TRANSINT:[id number] Voice Confirmation ID: [id number] DOCUMENT ID: [id number] KESHAWN MATTHEW MD at 1656 CC: [id number] DICTATION DATE: 07/29/17 1453 FORMING PRESS OPERATOR: 07/29/17 1714 DEP CLI 07/29/17 [place] [id number] [place] [id number]
== END 2017-07-29 18:50 | disposition home or self-care (01) ==
LOC: D.CATH 08:43
PROVIDERS: Internal Medicine Interventional Cardiology
DX: I25.119 Atherosclerotic heart disease of native coronary artery with unspecified angina pectoris (principal); Z95.5 Presence of coronary angioplasty implant and graft; Z01.812 Encounter for preprocedural laboratory examination
CPT/HCPCS: C9600 ×2

== ENCOUNTER → 2017-08-12 08:41 | Outpatient (CLI) | payer OTHER ==
--- NOTE | ~2017-08-12 | HEMODYNAMI ---
PATIENT:TRENT ALLISON MEDICAL RECORD: [id number] : 60 LOCATION:[facility] ADMISSION DATE: 08/12/17 Generatedon:08/12/201711:03 Patient name: TRENT ALLISON Patient #: [id number] SSN: : 1960 Date of study: 08/12/2017 Page: Of Hemodynamic Procedure Report Patient Data Patient Demographics Procedure consent was obtained First Name: TRENT Gender: Male Last Name: KEEGAN : 1960 Middle Initial: RAY Age: 57 year(s) Patient #: [id number] Race: Unknown Additional ID: [id number] Contact details Address: [address] State: [place] City: [place] Zip code: [address] Past Medical History Allergies Allergen Reaction Date Comments Reported Codeine 08/12/2017 Admission Admission Data Admission Date: 08/12/2017 Admission Time: 8:41 Procedure Procedure Types Cath Procedure Miscellaneous Procedures Moderate Sedation up to 30 minutes Peripheral Cath Diagnostic Procedure Abd/Extremity Extremities Left Lower Ext Arterio Peripheral vascular Intervention Stent Stent-Fem/Popw/plasty Procedure Description Procedure Date Procedure Date: 08/12/2017 Procedure Start Time: 10:44 Procedure End Time: 11:03 Procedure Staff Name Function Gianfranco Salcedo MD Performing Physician Saniya Grissom RN Nurse Tisha Xie RT Monitor Christiano Borja RN Seat Cover Installer Mc Salamanca RT Scrub Procedure Data Cath Procedure Fluoroscopy Diagnostic fluoroscopy Total fluoroscopy Time: 5 time: 5 min min Diagnostic fluoroscopy Total fluoroscopy dose: 166 dose: 166 mGy mGy Contrast Material Contrast Material Type Amount (ml) Isovue 300 57 Entry Location Entry Primary Successful Side Size Upsize Upsize Entry Closure Succes sful Closure Location (Fr) 1 (Fr) 2 (Fr) Remarks Device Remarks Femoral Right 6 Fr 6 Fr 6 Fr artery Short Long Short Estimated blood loss: 10 ml Diagnostic catheters Device Type Used For End Catheter Placement Diagnostic 5Fr IMT Procedure Catheter Procedure Complications No complications Procedure Medications Medication Administration Route Dosage Oxygen NC 2 l/min Lidocaine 2% added to field 20 Heparin Flush Bag added to field 2 bags (1000units/500ml NS) 0.9% NaCl I.V. 100 ml/hr Versed I.V. 2 mg Fentanyl I.V. 100 mcg Versed I.V. 1 mg Fentanyl I.V. 50 mcg Heparin Bolus I.V. 4000 units Versed I.V. 1 mg Fentanyl I.V. 50 mcg Hemodynamics Rest Heart Rate: 60 (bpm) Snapshots Pre Cath Intra NCS Post Cath Vital Signs Time Heart Resp SPO2 etCO2 NIBP (mmHg) Rhythm Pain Sedation Rate (ipm) (%) (mmHg) Status Level (bpm) 10:24:17 61 16 99 0 139/80(123) NSR 0 (11) 10(A) , No pain 10:28:36 62 17 99 22.4 141/78(115) NSR 0 (11) 10(A) , No pain 10:32:52 65 17 99 38.1 125/79(101) NSR 0 (11) 10(A) , No pain 10:36:59 67 16 100 0 137/87(99) NSR 0 (11) 10(A) , No pain 10:41:13 69 15 100 29.1 119/73(96) NSR 0 (11) 10(A) , No pain 10:45:26 65 16 99 0 117/68(86) NSR 0 (11) 9(A) , No pain 10:49:35 66 15 98 18.7 112/72(91) NSR 0 (11) 9(A) , No pain 10:53:43 67 16 99 26.1 109/74(87) NSR 0 (11) 9(A) , No pain 10:57:49 69 15 99 36.7 108/78(99) NSR 0 (11) 10(A) , No pain 11:02:05 69 20 99 0 119/37(45) NSR 0 (11) 10(A) , No pain Medications Time Medication Route Dose Verified Delivered Reason Notes Effectiveness by by 10:22:30 Oxygen NC 2 Gianfranco Kothari used for l/min Matias Grissom cardiac care nurse 10:22:37 Lidocaine 2% added 20ml Gianfranco Medel for local to vial Matias Salcedo MD anesthetic field 10:22:56 Heparin Flush added 2 Gianfranco Medel used for Bag to bags Matias Salcedo MD procedure (1000units/500ml field NS) 10:23:05 0.9% NaCl I.V. 100 Gianfranco Kothari Per physician ml/hr Matias Grissom RN 10:40:54 Versed I.V. 2 mg Gianfranco Kothari for sedation Matias Grissom RN 10:41:01 Fentanyl I.V. 100 Gianfranco Kothari for sedation mcg Matias Grissom RN 10:47:19 Versed I.V. 1 mg Gianfranco Traceyie for sedation Matias Grissom RN 10:47:24 Fentanyl I.V. 50 Gianfranco Traceyie for sedation mcg Matias Grissom RN 10:48:34 Heparin Bolus I.V. 4000 Gianfranco Traceyie for verifi ed units Matias Grissom RN anticoagulation with dr salcedo 10:55:37 Versed I.V. 1 mg Gianfranco Traceyie for sedation Matias Grissom RN 10:55:41 Fentanyl I.V. 50 Gianfranco Kothari for sedation mcg Matias Grissom RN Procedure Log Time Note 10:01:28 Saniya Grissom RN sent for patient. Start room use. 10:01:29 Time tracking: Regular hours 10:01:33 Plan of Care:Hemodynamics will remain stable., Cardiac rhythm will remain stable., Comfort level will be maintained., Respiratory function will remain adequate., Patient/ family verbilizes understanding of procedure., Procedure tolerated without complication., Recovers from procedure without complications.. 10:18:32 Patient received from Pre/Post Procedure Room to [facility] 2 Alert and oriented. Tansferred to table in Supine position. 10:18:33 Warm blankets applied, and carole hugger turned on for patient comfort. 10:18:34 Correct patient and procedure confirmed by team. 10:18:35 Signed procedure consent form obtained from patient. 10:18:35 ECG and BP/O2 sat monitors applied to patient. 10:22:30 Oxygen 2 l/min NC was administered by Saniya Grissom RN; used for procedure; 10:22:37 Lidocaine 2% 20ml vial added to field was administered by Gianfranco Salcedo MD; for local anesthetic; 10:22:56 Heparin Flush Bag (1000units/500ml NS) 2 bags added to field was administered by Gianfranco Salcedo MD; used for procedure; 10:23:05 0.9% NaCl 100 ml/hr I.V. was administered by Saniya Grissom RN; Per physician; 10:23:10 Vital chart was started 10:23:20 Full Disclosure recording started 10:23:22 Baseline sample Acquired. 10:24:30 Rhythm: sinus rhythm 10:24:44 H&P Date Dictated: 08/12/2017 New H&P dictated by physician.. 10:24:45 Pre-procedure instructions explained to patient. 10:24:46 Pre-op teaching completed and patient verbalized understanding. 10:24:48 Family in waiting room. 10:24:50 Patient NPO since Midnight. 10:24:57 Patient allergic to Codeine 10:24:59 Is the patient allergic to Iodine/contrast media? No. 10:25:00 Is patient on blood thinner?Yes 10:25:03 ACC The patient was administered the following blood thiners within the last 24 hours: ACCPlavix 10:25:46 Patient diabetic? Yes. 10:26:19 Previous problem with sedation/anesthesia? No ? 10:26:20 Snore? Yes 10:26:21 Sleep apnea? No 10:26:23 Deviated septum? No 10:26:23 Opens mouth fully? Yes 10:26:24 Sticks out tongue? Yes 10:26:26 Airway obstruction? No ? 10:26:28 Dentures? No ? 10:26:32 Pre procedure: right dorsailis pedis pulse 1+ Palpable, but thready & weak; easily obliterated 10:26:35 Pre procedure: left dorsailis pedis pulse 2+ Normal; easily identifiable; not easily obliterated 10:26:37 Patient pain scale 0/10 ?. 10:26:41 IV patent on arrival in left hand with 0.9% NaCl at O. 10:26:47 Lab results completed and on chart. 10:26:50 Bilateral groins area was prepped with chlora-prep and draped in sterile fashion 10:26:51 Alarms reviewed by R. N. 10:26:52 Sharps counted by scrub and verified by R.N. 10:26:58 Use device set Femoral PCI 10:26:59 Acist Syringe opened to sterile field. 10:27:00 Acist Hand Control opened to sterile field. 10:27:00 Bag Decanter opened to sterile field. 10:27:01 Medline Cath Pack opened to sterile field. 10:27:01 Terumo 6Fr Dixie Sheath opened to sterile field. 10:27:02 St Fan 260cm J .035 wire opened to sterile field. 10:27:02 Merit BasixCompak Inflation Kit opened to sterile field. 10:27:03 Acist Manifold opened to sterile field. 10:27:03 Tegaderm 4 x 4 opened to sterile field. 10:27:14 Terumo Super Stiff Angled 260cm glide wire opened to sterile field. 10:37:32 Terumo 6Fr Dixie Destination Sheath opened to sterile field. 10:39:23 Zero performed for pressure channel P1 10:39:26 Final Timeout: patient, procedure, and site verified with staff and physician. All members of the team are in agreement. 10:39:34 Right groin site verified by team. 10:39:37 Physical assessment completed. ASA score P 2 - A patient with mild systemic disease as per Gianfranco Salcedo MD. 10:39:40 Sedation plan: IV Moderate Sedation Versed, Fentanyl 10:40:54 Versed 2 mg I.V. was administered by Saniya Grissom RN; for sedation; 10:41:01 Fentanyl 100 mcg I.V. was administered by Saniya Grissom RN; for sedation; 10:41:45 Zero performed for pressure channel P1 10:44:53 Procedure started. 10:44:57 Local anesthetic to right femoral artery with Lidocaine 2% by Gianfranco Salcedo MD.INITIAL ACCESS ONLY 10:46:04 A 6 Fr Short sheath was inserted into the Right Femoral artery 10:46:15 SS Emma wire advanced. 10:46:19 A Diagnostic 5Fr IMT Catheter was advanced over the wire and used for Procedure. 10:47:06 Terumo TORQUE DEVICE PLASTIC .038 opened to sterile field. 10:47:19 Versed 1 mg I.V. was administered by Saniya Grissom RN; for sedation; 10:47:24 Fentanyl 50 mcg I.V. was administered by Saniya Grissom RN; for sedation; 10:48:34 Heparin Bolus 4000 units I.V. was administered by Saniya Grissom RN; for anticoagulation; verified with dr salcedo 10:49:35 Catheter exchanged over wire. 10:49:39 Sheath upsized to a 6 Fr Long. 10:50:53 Procedure type changed to Cath procedure, Miscellaneous Procedures, Moderate Sedation up to 30 minutes, Peripheral Cath Diagnostic Procedure, Abd/Extremity, Extremities, Left Lower Ext Arterio, Peripheral vascular Intervention, Stent, Stent-Fem/Popw/plasty 10:52:30 Inflation number: 1 A Cordis Powerflex Pro 6.0 X 60 X 135 balloon was prepped and advanced across the Mid Superficial Femoral, Left, then inflated to 9 NITA for 0:06 (min:sec). 10:53:00 Inflation number: 2 The Cordis Powerflex Pro 6.0 X 60 X 135 balloon was reinflated across the Mid Superficial Femoral, Left, to 9 NITA for 0:01 (min:sec). 10:53:02 Balloon removed over the wire. 10:55:15 Cordis SMART 7 X 100 X 120 stent was deployed across Mid Superficial Femoral, Left . 10:55:21 Stent catheter was removed intact over wire. 10:55:37 Versed 1 mg I.V. was administered by Saniya Grissom RN; for sedation; 10:55:41 Fentanyl 50 mcg I.V. was administered by Saniya Grissom RN; for sedation; 10:56:01 Inflation number: 3 The Cordis Powerflex Pro 6.0 X 60 X 135 balloon was reinflated across the Mid Superficial Femoral, Left, to 13 NITA for 0:10 (min:sec). 10:56:16 Inflation number: 4 The Cordis Powerflex Pro 6.0 X 60 X 135 balloon was reinflated across the Mid Superficial Femoral, Left, to 13 NITA for 0:04 (min:sec). 10:56:18 Balloon removed over the wire. 10:57:24 Sheath upsized to a 6 Fr Short. 10:57:33 Procedure ended.(Physican Out) 10:57:47 Fluoroscopy time 05.00 minutes. 10:57:50 Flurop Dose total: 166 10:57:50 Fluoroscopy dose: 166 mGy 10:58:02 Cordis 6Fr Exoseal opened to sterile field. 10:58:24 Contrast amount:Isovue 300 57ml. 10:58:25 Sharps counted by scrub and verified by R.N. 10:58:27 Insertion/operative site no bleeding no hematoma. 10:58:33 Post-op/insertion site Right Femoral artery dressed using a 4 x 4 and Tegaderm. 10:58:36 Post right femoral artery:stable, clean and dry 10:58:42 Post Procedure Pulses reassessed and unchanged 10:59:31 Post-procedure physical assessment completed. ASA score P 2 - A patient with mild systemic disease as per Gianfranco Salcedo MD. 10:59:33 Post procedure rhythm: unchanged. 10:59:41 Estimated blood loss: 10 ml 10:59:42 Post procedure instruction explained to patient.Patient verbalizes understanding. 10:59:42 Patient needs reinforcement of post procedure teaching. 10:59:48 Procedure Complication : No complications 10:59:50 See physician's report for complete and final results. 11:02:57 Procedure and supply charges have been captured, reviewed, submitted and are correct. 11:02:58 Vital chart was stopped 11:03:00 Report given to Pre/Post Procedure Room. 11:03:03 Patient transfered to Pre/Post Procedure Room with Stretcher. 11:03:11 Procedure ended. 11:03:11 Full Disclosure recording stopped 11:03:37 End room use (Document Last) Intervention Summary Intervention Notes Time ActionType Lesion and Equipment Action# Pressure Duration Attributes Used 10:52:30 Inflate Mid Cordis 1 9 00:06 balloon Superficial Powerflex Femoral, Pro 6.0 X Left 60 X 135 balloon 10:53:00 Reinflate Mid Cordis 2 9 00:01 balloon Superficial Powerflex Femoral, Pro 6.0 X Left 60 X 135 balloon 10:55:15 Deploy self Mid Cordis 1 expanding Superficial SMART 7 X stent Femoral, 100 X 120 Left stent 10:56:01 Reinflate Mid Cordis 3 13 00:10 balloon Superficial Powerflex Femoral, Pro 6.0 X Left 60 X 135 balloon 10:56:16 Reinflate Mid Cordis 4 13 00:04 balloon Superficial Powerflex Femoral, Pro 6.0 X Left 60 X 135 balloon Device Usage Item Name Manufacture Quantity Catalog Number Hospital Part Current Minim al Lot# / Charge Number Stock Stock Serial# Code Acist Acist 1 [id number] [id number] 955042 203690 20 Syringe Medical Systems Inc Acist Hand Acist 1 49827 399469 945062 846760 5 Control Medical CH4e Inc Bag Microtek 1 2002S 411269 23001 927673 5 DecIngenuity Systems Inc. Medline Cardinal 1 [id number] 92822 981835 5 Cath Pack Health Terumo 6Fr Terumo 1 [id number] 079007 167949 016747 [address] Fan St Fan 1 467858 510841 126217 183293 30 260cm J .035 wire Merit Merit 1 [id number] 664079 604561 527888 15 BasixComCompass Engine Medical Inflation Kit Acist Acist 1 28991 548154 498889 285620 5 [employer] Medical Systems Inc Tegaderm 4 3M 1 1626W 092097 291862 466521 5 x 4 Terumo Terumo 1 HW6012 006673 257032 543999 5 Super Stiff Angled 260cm glide wire Terumo 6Fr Terumo 1 RSR01 195542 17697 362644 5 Dixie Destination Sheath Diagnostic [place] 1 [id number] 119825 688193 60519 5 5Fr IMT Scientific Catheter Terumo [place] 1 TD01 608340 055323 640823 5 TORQUE Scientific DEVICE PLASTIC .038 Cordis Cardinal 1 [id number] 886556 861276 836205 5 Powerflex Health Pro 6.0 X 60 X 135 balloon Cordis Cardinal 1 [id number] 336635 375463 0 [id number] SMART 7 X Health 100 X 120 stent Cordis 6Fr Cardinal 1 EX600 945290 006671 488808 10 [facility] Health Signature Audit [place] Stage Time Signature Unsigned Intra-Procedure 08/12/2017 Tisha 11:03:48 AM Counts RT(R) Signatures Monitor : Tisha Signature : Counts RT Date : Time : [facility] [address], [place] [address]
[2017-08-12 09:19] VITALS: BP 138/85; BMI 29.6
[2017-08-12 09:34] LABS: BASOPHILS 0.3 % (0-2); EOSINOPHILS 5.3 % (0-7); HEMATOCRIT 41.7 % (42.0-54.0); HEMOGLOBIN 14.2 g/dL (13.5-17.5); IMMATURE GRANULOCYTES 0.6 % (0-5); LYMPHOCYTES 26.2 % (15-50); MCH 32.3 pg (26.0-34.0); MCHC 34.1 g/dL (31.0-37.0); MEAN PLATELET VOLUME 9.6 fL (7.4-10.4); MONOCYTES 11.1 % (2-11); NEUTROPHILS 56.5 % (40-80); PLATELET COUNT 222 10x3/uL (130-400); RBC 4.39 10x6/uL (4.20-6.10); RDW 13.4 % (11.5-14.5); WBC 6.4 10x3/uL (4.8-10.8)
[2017-08-12 09:47] LABS: ANION GAP 11.7 mmol/L (8-16); CALCIUM 8.7 mg/dL (8.5-10.1); CARBON DIOXIDE 25.7 mmol/L (21.0-32.0); CREATININE - SERUM 1.4 mg/dL (0.6-1.3); POTASSIUM - SERUM 3.4 mmol/L (3.5-5.1)
--- NOTE | 2017-08-12 11:15 | NUR ---
RECIEVED TO ROOM VIA STRETCHER FROM INTRANET DEVELOPER WITH REPORTS OF ONE STENT TO THE L/SFA. 6 FR EXOSEAL R/GROIN CDI NO BLEEDING NO HEMATOMA NOTED. INSTRUCTED PATIENT TO KEEP HEAD FLAT ON PILLOW WITH RLE STRAIGHT. VSS AND FAMILY IS AT BEDSIDE
--- NOTE | 2017-08-12 11:30 | NUR ---
6 FR EXOSEAL R/GROIN CDI NO BLEEDING NO HEMATOMA NOTED. PULSES PALPABLE WITH VSS NO DISTRESS
--- NOTE | 2017-08-12 12:17 | NUR ---
1200 DRESSING TO RIGHT GROIN IS CDI, AREA SOFT AND NONTENDER. VSS. FAMILY AT BEDSIDE. DENIES NEEDS AT THIS TIME.
--- NOTE | 2017-08-12 12:38 | NUR ---
RESTING QUIETLY WITH EYES CLOSED. VSS WITH NO DISTRESS NOTED FAMILY IS AT BEDSIDE. 6 FR EXOSEAL R/GROIN CDI PULSES PALPABLE
--- NOTE | 2017-08-12 13:11 | NUR ---
NO CHANGE IN ASSESSMENT VSS WITH NO DISTRESS NOTED
--- NOTE | 2017-08-12 14:02 | NUR ---
6 FR EXOSEAL R/GROIN CDI NO BLEEDING NO HEMATOMA NOTED. VSS
--- NOTE | 2017-08-12 14:20 | NUR ---
VERBAL AND WRITTEN DISCHARGE GONE OVER WITH PATIENT AND FAMILY. R/GROIN REMAINS CDI NO BLEEDING NOTED.
--- NOTE | 2017-08-12 14:54 | NUR ---
PIV REMOVED WITH DRESSING APPLIED. PATIENT UP TO GET DRESSED FOR DISCHARGE HOME.LEFT VIA WC TO PARKING FOR TO DRIVE CHEST PAIN IS DENIED
--- NOTE | 2017-08-12 16:56 | OP ---
PATIENT NAME: TRENT ALLISON MEDICAL RECORD: [id number] :60 LOCATION:D.CAT ADMISSION DATE: SURGEON: KESHAWN MATTHEW MD DATE OF OPERATION: 08/12/2017 PROCEDURES: 1. Stent placement SFA, left. 2. HEALTH AND WELLNESS COORDINATOR SFA, left. 3. Unilateral extremity angiography. INDICATION: Claudication and peripheral vascular disease. PROCEDURE IN DETAIL: After informed consent was obtained and after detailed explanation of risks, benefits as well as alternative therapies, the patient elected to proceed with angiogram and angioplasty. The right femoral area was prepped and draped in normal sterile fashion. The right femoral artery was cannulated via modified Seldinger technique with placement of a 6-Malagasy [id number]-vxf-[id number] sheath. All catheters exchanged through this sheath. FINDINGS: The left SFA has multiple areas of 80% stenosis in the mid vessel. This was addressed with a 6.0 balloon, which yielded suboptimal result with severe intimal dissection. Stenting was undertaken with a SMART stent, which was a 7 x 100. Result was 0% residual stenosis. OVERALL IMPRESSION: Successful HEALTH AND WELLNESS COORDINATOR stent of the left SFA going from multiple areas of 80% initial stenosis to 0% residual. TRANSINT:[id number] Voice Confirmation ID: [id number] DOCUMENT ID: [id number] KESHAWN MATTHEW MD at 1656 CC: [id number] DICTATION DATE: 08/12/17 1104 CHAUFFEUR: 08/12/17 1138 [facility] [address] [place] [address]
--- NOTE | 2017-08-12 16:56 | HP ---
PATIENT: TRENT ALLISON MEDICAL RECORD: [id number] ACCOUNT: [id number] LOCATION:[facility] : 60 ADMISSION DATE: 08/12/17 HISTORY AND PHYSICAL EXAMINATION DIAGNOSES: 1. Peripheral vascular disease. 2. Claudication. 3. Coronary artery disease. 4. Hypertension. 5. Hyperlipidemia. HISTORY OF PRESENT ILLNESS: Mr. Allison presents with angina and claudication symptomatology. He underwent cardiac catheterization 2-vessel PTCA stent. He has no further angina. He continues to have claudication. Aortofemoral runoff revealed aortic stent graft, but significant disease of his SFAs bilaterally. PHYSICAL EXAMINATION: GENERAL APPEARANCE: Well-nourished, well-developed, appears stated age. Level of distress, comfortable. PSYCHIATRIC: Mental status, alert, normal affect. Orientation, oriented to time, place and person. EYES: Lids and conjunctiva, noninjected. No discharge, no pallor. ENT: Lips, teeth, gums, normal dentition. Oropharynx, no cyanosis, no pallor. NECK: Carotid arteries, bilateral normal upstroke, no bruits, no thrills. JUGULAR VEINS: No jugular venous pressure or distention. CERVICAL LYMPH NODES: Nontender, nonenlarged. THYROID: Not enlarged. Nontender. No nodules. LUNGS: Respiratory effort, unlabored. CHEST: Normal curvature. No thoracic deformity. No chest wall tenderness. Percussion, resonant. Auscultation, clear. No wheezes, no rales, no rhonchi. CARDIOVASCULAR: Precordial exam, nondisplaced. No heaves or pericardial thrills. Rate and rhythm, regular. Heart sounds, normal S1, normal S2. No S3, no gallop, no rub. Systolic murmur, not heard. Diastolic murmur, not heard. EXTREMITIES: No cyanosis, no edema. Peripheral pulses, full and equal in all extremities, except as noted. No bruits appreciated. ABDOMEN: Soft, nondistended. Normal aorta. No bruit. Nontender. No masses. Liver, nontender, no hepatomegaly. Spleen, nontender, no splenomegaly. MUSCULOSKELETAL: No joint tenderness. No joint swelling. No erythema. NEUROLOGICAL: Normal gait, normal strength, normal tone. SKIN: Warm and dry. OVERALL IMPRESSION: At this time, we will proceed with transcatheter revascularization of the SFA disease. TRANSINT:[id number] Voice Confirmation ID: [id number] DOCUMENT ID: [id number] HISTORY AND PHYSICAL [id number] TRENT ALLISON JEFFREY MD at 1656 CC: [id number] DICTATION DATE: 08/12/17902 SALES ROUTE DRIVER HELPER: 08/12/17913 [facility] [address] [place] [id number]
== END | disposition home or self-care (01) ==
LOC: D.CATH 08:41
PROVIDERS: Internal Medicine Interventional Cardiology
DX: I70.219 Atherosclerosis of native arteries of extremities with intermittent claudication, unspecified extremity (principal); I25.10 Atherosclerotic heart disease of native coronary artery without angina pectoris; I10 Essential (primary) hypertension; E78.5 Hyperlipidemia, unspecified; Z01.812 Encounter for preprocedural laboratory examination

== ENCOUNTER 2018-03-23 11:38 | Emergency (ER) | payer SELFPAY ==
[~2018-03-23] VITALS: Ht 175.3 cm; Wt 81.8 kg
[2018-03-23 11:52] VITALS: Ht 175.3 cm; Wt 81.8 kg
[2018-03-23 12:41] LABS: BASOPHILS 0.4 % (0-2); EOSINOPHILS 3.4 % (0-7); HEMATOCRIT 41.2 % (42.0-54.0); HEMOGLOBIN 14.3 g/dL (13.5-17.5); IMMATURE GRANULOCYTES 0.6 % (0-5); LYMPHOCYTES 31.4 % (15-50); MCH 31.5 pg (26.0-34.0); MCHC 34.7 g/dL (31.0-37.0); MCV 90.7 fL (80.0-100.0); MEAN PLATELET VOLUME 9.4 fL (7.4-10.4); MONOCYTES 9.4 % (2-11); NEUTROPHILS 54.8 % (40-80); PLATELET COUNT 197 10x3/uL (130-400); RBC 4.54 10x6/uL (4.20-6.10); RDW 13.3 % (11.5-14.5); WBC 6.7 10x3/uL (4.8-10.8)
[2018-03-23 13:07] LABS: ALBUMIN 3.1 g/dL (3.4-5.0); ALKALINE PHOSPHATASE 96 U/L (46-116); ALT (SGPT) 12 U/L (10-68); BILIRUBIN - TOTAL 0.33 mg/dL (0.2-1.3); CALC OSMOLALITY 280 mosm/kg (275-300); CALCIUM 8.3 mg/dL (8.5-10.1); CHLORIDE - SERUM 103 mmol/L (98-107); CREATINE KINASE 72 UL (21-232); CREATININE - SERUM 1.3 mg/dL (0.6-1.3); GLUCOSE 115 mg/dL (74-106); PRO BNP 204 pg/mL (0-125); PROTEIN - SERUM 6.7 g/dL (6.4-8.2); SODIUM 139 mmol/L (136-145); UREA NITROGEN 19 mg/dL (7-18); eGFR NON AFRICAN AMERICAN 60 mL/min (90-120)
[2018-03-23 13:11] LABS: POTASSIUM - SERUM 2.7 mmol/L (3.5-5.1); TROPONIN-I < 0.017 ng/mL (0.000-0.060)
[2018-03-23] MEDS ORDERED: KLOR-CON 1010 MEQ PO (14:17)
[2018-03-23 14:40] VITALS: BP 134/92
== END 2018-03-23 14:38 | disposition home or self-care (01) ==
LOC: D.ER 11:38
PROVIDERS: Family Medicine
DX: R07.9 Chest pain, unspecified (principal); I25.810 Atherosclerosis of coronary artery bypass graft(s) without angina pectoris; I10 Essential (primary) hypertension; K21.9 Gastro-esophageal reflux disease without esophagitis; F17.200 Nicotine dependence, unspecified, uncomplicated

== ENCOUNTER 2018-11-07 12:36 | Observation (INO) | payer OTHER ==
[~2018-11-07] VITALS: Ht 175.3 cm; Wt 84.5 kg
[2018-11-07] VITALS (7 sets, daily range): BP systolic 113–167; BP diastolic 70–93; BMI 24.7
--- NOTE | ~2018-11-07 | HEMODYNAMI ---
PATIENT:TRENT ALLISON MEDICAL RECORD: [id number] : 60 LOCATION:[address] ADMISSION DATE: 11/07/18 Generatedon:11/08/201816:03 Patient name: TRENT ALLISON Patient #: [id number] SSN: : 1960 Date of study: 11/08/2018 Page: Of Hemodynamic Procedure Report Patient Data Patient Demographics Procedure consent was obtained First Name: TRENT Gender: Male Last Name: KEEGAN : 1960 Middle Initial: RAY Age: 58 year(s) Patient #: [id number] Race: Unknown Additional ID: [id number] Contact details Address: [address] [place], [place] [address] State: [place] City: [place] Zip code: [address] Past Medical History Allergies Allergen Reaction Date Comments Reported Codeine 08/12/2017 Other allergy 11/08/2018 codeine Admission Admission Data Admission Date: 11/07/2018 Admission Time: 13:56 Room #: D.2124 Lab Results Lab Result Date: 11/08/2018 Lab Result Time: 0:00 Biochemistry Name Units Result Min Max BUN mg/dl 19 --(----)*- 7 18 Creatinine mg/dl 1.5 --(----)-* 0.6 1.3 CBC Name Units Result Min Max Hemoglobin g/dl 13.6 --(*---)-- 13.5 17.5 Procedure Procedure Types Cath Procedure Diagnostic Procedure LHC LHC w/Coronaries Procedure Description Procedure Date Procedure Date: 11/08/2018 Procedure Start Time: 15:44 Procedure End Time: 16:00 Procedure Staff Name Function Gianfranco Salcedo MD Performing Physician Leah Fuentes RT Monitor Alina Lane RN Nurse Mc Salamanca RT Scrub Procedure Data Cath Procedure Fluoroscopy Diagnostic fluoroscopy Total fluoroscopy Time: 3.1 time: 3.1 min min Diagnostic fluoroscopy Total fluoroscopy dose: 653 dose: 653 mGy mGy Contrast Material Contrast Material Type Amount (ml) Isovue 300 143 Visipaque 320 0 Entry Location Entry Primary Successful Side Size Upsize Upsize Entry Closure Succes sful Closure Location (Fr) 1 (Fr) 2 (Fr) Remarks Device Remarks Femoral Right 5 Fr Exoseal artery Estimated blood loss: 10 ml Diagnostic catheters Device Type Used For End Catheter Placement MULTIPACK 3DRC 5Fr Procedure catheter MULTIPACK JL 4.0 5Fr Procedure catheter MULTIPACK Pigtail 5 Fr Procedure catheter MULTIPACK 3DRC 5Fr Procedure catheter Procedure Complications No complications Procedure Medications Medication Administration Route Dosage 0.9% NaCl I.V. 100 ml/hr Oxygen etCO2 Nasal cannula 2 l/min Lidocaine 2% added to field 20 Heparin Flush Bag added to field 2 bags (1000units/500ml NS) Versed I.V. 2 mg Fentanyl I.V. 50 mcg Versed I.V. 2 mg Fentanyl I.V. 50 mcg Hemodynamics Rest Pre Cath Intra NCS Post Cath Vital Signs Time Heart Resp SPO2 etCO2 NIBP Rhythm Pain Sedation Rate (ipm) (%) (mmHg) (mmHg) Status Level (bpm) 15:16:26 54 14 98 31 135/72(88) NSR 0 (11) 10(A) , No pain 15:20:39 53 16 98 29.9 121/74(99) NSR 0 (11) 10(A) , No pain 15:24:51 60 17 95 26.1 106/73(89) NSR 0 (11) 10(A) , No pain 15:29:01 60 13 97 31.4 106/64(81) NSR 0 (11) 10(A) , No pain 15:33:09 62 13 97 32 110/67(81) NSR 0 (11) 10(A) , No pain 15:37:19 62 14 97 34 98/68(81) NSR 0 (11) 10(A) , No pain 15:41:27 62 15 97 36 106/60(87) NSR 0 (11) 10(A) , No pain 15:45:39 59 13 98 28.4 102/58(83) NSR 0 (11) 10(A) , No pain 15:49:45 69 15 96 27.7 104/69(80) NSR 0 (11) 9(A) , No pain 15:53:54 72 12 96 17.9 103/63(86) NSR 0 (11) 9(A) , No pain 15:58:02 70 10 97 19.6 110/68(85) NSR 0 (11) 10(A) , No pain Medications Time Medication Route Dose Verified Delivered Reason Notes Eff ectiveness by by 15:15:42 0.9% NaCl I.V. 100 Gianfranco Alina used for ml/hr Matias Lane hardwood floor installer 15:15:50 Oxygen etCO2 2 Gianfranco Alina used for Nasal l/min Matias Lane procedure cannula RN 15:15:54 Lidocaine 2% added 20ml Gianfranco Gianfranco for local to vial Matias Salcedo MD anesthetic field 15:15:59 Heparin Flush added 2 Gianfranco Gianfranco used for Bag to bags Matias Salcedo MD procedure (1000units/500ml field NS) 15:42:45 Versed I.V. 2 mg Gianfranco Alina for Matias [address] sedation RN 15:42:57 Fentanyl I.V. 50 Gianfranco Alina for mcg Matias Lane sedation RN 15:48:21 Versed I.V. 2 mg Gianfranco Alina for Matias [address] sedation RN 15:48:25 Fentanyl I.V. 50 Gianfranco Alina for mcg Mat[address] sedation sales representative church furniture Log Time Note 14:50:13 Mc Salamanca RT(R) sent for patient. Start room use. 15:00:14 Time tracking: Regular hours (M-F 7:00 - 5:00) 15:00:20 Plan of Care:Hemodynamics will remain stable., Cardiac rhythm will remain stable., Comfort level will be maintained., Respiratory function will remain adequate., Patient/ family verbilizes understanding of procedure., Procedure tolerated without complication., Recovers from procedure without complications.. 15:11:18 Patient received from Med II to CCL 1 Alert and oriented. Tansferred to table in Supine position. 15:11:19 Warm blankets applied, and carole hugger turned on for patient comfort. 15:11:20 Correct patient and procedure confirmed by team. 15:11:22 Signed procedure consent form obtained from patient. 15:11:24 ECG and BP/O2 sat monitors applied to patient. 15:12:05 H&P Date Dictated: 11/07/2018 Within 30 days and on chart.. 15:12:07 Pre-procedure instructions explained to patient. 15:15:10 Vital chart was started 15:15:42 0.9% NaCl 100 ml/hr I.V. was administered by Alina Lane RN; used for procedure; 15:15:50 Oxygen 2 l/min etCO2 Nasal cannula was administered by Alina Lane RN; used for procedure; 15:15:54 Lidocaine 2% 20ml vial added to field was administered by Gianfranco Salcedo MD; for local anesthetic; 15:15:59 Heparin Flush Bag (1000units/500ml NS) 2 bags added to field was administered by Gianfranco Salcedo MD; used for procedure; 15:19:41 Family in patients room. 15:19:46 Patient NPO since Midnight. 15:20:04 Patient allergic to Other allergycodeine 15:20:08 Is the patient allergic to Iodine/contrast media? No. 15:20:25 Was the patient premedicated? Yes 15:20:27 Is patient on blood thinner?Yes 15:20:31 ACC The patient was administered the following blood thiners within the last 24 hours: ACCPlavix 15:20:38 Patient diabetic? No. 15:20:45 Snore? Yes 15:20:46 Sleep apnea? No 15:20:53 Dentures? No ? 15:20:58 Patient pain scale 0/10 ?. 15:21:04 IV patent on arrival in left forearm with 0.9% NaCl at [facility]. 15:21:50 Lab results completed and on chart. 15:22:46 Lab Result : BUN 19 mg/dl 15:22:46 Lab Result : Hemoglobin 13.6 g/dl 15:22:46 Lab Result : Creatinine 1.5 mg/dl 15:22:54 Right groin area was prepped with chlora-prep and draped in sterile fashion 15:22:55 Alarms reviewed by R. N. 15:22:56 Sharps counted by scrub and verified by R.N. 15:24:07 Physician paged 15:39:59 Physician arrived 15:40:00 --------ALL STOP TIME OUT------ 15:40:01 Final Timeout: patient, procedure, and site verified with staff and physician. All members of the team are in agreement. 15:40:04 Right groin site verified by team. 15:40:09 Physical assessment completed. ASA score P 2 - A patient with mild systemic disease as per Gianfranco Salcedo MD. 15:40:14 Sedation plan: IV Moderate Sedation Medication:Versed, Fentanyl 15:40:32 Use device set Femoral Dx 15:40:33 ACIST Syringe (28783) opened to sterile field. 15:40:34 Bag Decanter (2002S) opened to sterile field. 15:40:34 Medline Cath Pack ([id number]) opened to sterile field. 15:40:35 DIAGNOSTIC WIRE .035 260cm J wire (143210) opened to sterile field. 15:40:36 ACIST Hand Control (55001) opened to sterile field. 15:40:37 ACIST Manifold (70597) opened to sterile field. 15:40:38 DIAGNOSTIC Multipack 5Fr catheter set (LV1281) opened to sterile field. 15:40:39 Tegaderm 4 x 4 (1626W) opened to sterile field. 15:40:41 SHEATH 5FR Swan (UFM437) opened to sterile field. 15:42:45 Versed 2 mg I.V. was administered by Alina Lane RN; for sedation; 15:42:57 Fentanyl 50 mcg I.V. was administered by Alina Lane RN; for sedation; 15:44:03 Procedure started. 15:44:03 Full Disclosure recording started 15:44:12 Local anesthetic to right femoral artery with Lidocaine 2% by Gianfranco Salcedo MD.INITIAL ACCESS ONLY 15:44:26 A 5 Fr sheath was inserted into the Right Femoral artery 15:46:10 A MULTIPACK 3DRC 5Fr catheter was advanced over the wire and used for Procedure. 15:47:46 GLIDE WIRE ANGLE 260cm (XZ1838) opened to sterile field. 15:47:55 RCA angiography performed. 15:47:58 Catheter removed. 15:48:14 A MULTIPACK JL 4.0 5Fr catheter was advanced over the wire and used for Procedure. 15:48:21 Versed 2 mg I.V. was administered by Alina Lane RN; for sedation; 15:48:25 Fentanyl 50 mcg I.V. was administered by Alina Lane RN; for sedation; 15:48:37 LCA angiography performed. 15:51:22 Catheter removed. 15:51:34 A MULTIPACK Pigtail 5 Fr catheter was advanced over the wire and used for Procedure. 15:52:28 LV gram done using DOLAN 15:52:58 EF : 55 % 15:53:26 Abdominal angiogram w/ runoff was performed. 15:53:29 Left leg runoff performed. 15:53:32 Right leg runoff performed. 15:54:12 Catheter removed. 15:54:37 A MULTIPACK 3DRC 5Fr catheter was advanced over the wire and used for Procedure. 15:54:46 Right carotid angiography performed. 15:54:48 Left carotid angiography performed. 15:57:05 Catheter removed. 15:57:25 Sheath removed intact; hemostasis achieved with Exoseal to the Right Femoral artery. 15:57:31 EXOSEAL 5Fr (EX500) opened to sterile field. 15:57:34 Procedure ended.(Physican Out) 15:57:47 Fluoroscopy time 03.10 minutes. 15:57:51 Fluoroscopy dose: 653 mGy 15:57:51 Flurop Dose total: 653 15:57:55 Contrast amount:Isovue 300 143ml. 15:57:57 Sharps counted by scrub and verified by R.N. 15:58:01 Insertion/operative site no bleeding no hematoma. 15:58:05 Post right femoral artery:stable 15:58:07 Post Procedure Pulses reassessed and unchanged 15:58:12 Post procedure rhythm: sinus rhythm 15:58:16 Estimated blood loss: 10 ml 15:58:20 Post procedure instruction explained to patient.Patient verbalizes understanding. 15:58:33 Procedure and supply charges have been captured, reviewed, submitted and are correct. 15:59:57 Procedure Complication : No complications 15:59:59 Vital chart was stopped 16:00:04 See physician's report for complete and final results. 16:00:07 Report given to Pre/Post Procedure Room. 16:00:17 Patient transfered to [facility] with Bed. 16:00:25 Procedure ended. 16:00:25 Full Disclosure recording stopped 16:00:29 Contrast amount:Visipaque 320 0ml. 16:00:32 End room use (Document Last) Device Usage Item Name Manufacture Quantity Catalog Hospital Part Current Minimal L ot# / Number Charge Number Stock Stock Serial# Code ACIST Acist 1 90416 519336 198620 604530 20 Syringe Medical (14608) Systems Inc Bag Microtek 1 2001S 118804 69894 953950 5 Decanter Medical Inc. () Medline Medline 1 [id number] 285846 18967 018508 5 Cath Pack ([id number]) DIAGNOSTIC St Fan 1 809771 857413 741677 061858 30 WIRE .035 260cm J wire (579494) ACIST Hand Acist 1 29116 411003 647799 608002 5 Control Medical (66435) Systems Inc ACIST Acist 1 55773 677712 695973 636665 5 Manifold Medical (21904) Systems Inc DIAGNOSTIC Cardinal 1 XC2584 280725 62416 997609 30 Multipack Health 5Fr catheter set (DE9007) Tegaderm 4 3M 1 1626W 880874 294270 325181 5 x 4 (1626W) SHEATH 5FR Terumo 1 TLS335 158460 984872 440021 5 Swan (CRF621) MULTIPACK Cardinal 1 427420 5 3DRC 5Fr Health catheter GLIDE WIRE Terumo 1 TX3445 921443 117426 577448 5 ANGLE 260cm (TD2498) MULTIPACK Cardinal 1 082811 5 JL 4.0 5Fr Health catheter MULTIPACK Cardinal 1 101534 5 Pigtail 5 Health Fr catheter EXOSEAL 5Fr Cardinal 1 EX500 855126 443061 793268 10 (EX500) Health Signature Audit Table [place] Stage Time Signature Unsigned Intra-Procedure 11/08/2018 Mc Salamanca 4:03:47 PM RT(R) Signatures Monitor : Leah Fuentes Signature : RT Date : Time : [place] [id number] [place] [address]
[~2018-11-07 12:36] MED LIST changes: +KLOR-CON 1010 MEQ PO
[2018-11-07 13:06] LABS: BASOPHILS 0.4 % (0-2); EOSINOPHILS 2.1 % (0-7); HEMATOCRIT 46.8 % (42.0-54.0); HEMOGLOBIN 16.5 g/dL (13.5-17.5); IMMATURE GRANULOCYTES 0.7 % (0-5); LYMPHOCYTES 22.6 % (15-50); MCH 31.8 pg (26.0-34.0); MCHC 35.3 g/dL (31.0-37.0); MCV 90.2 fL (80.0-100.0); MEAN PLATELET VOLUME 9.6 fL (7.4-10.4); MONOCYTES 9.1 % (2-11); NEUTROPHILS 65.1 % (40-80); PLATELET COUNT 223 10x3/uL (130-400); RBC 5.19 10x6/uL (4.20-6.10); WBC 10.3 10x3/uL (4.8-10.8)
[2018-11-07 13:20] LABS: ALBUMIN 3.5 g/dL (3.4-5.0); ALKALINE PHOSPHATASE 92 U/L (46-116); ALT (SGPT) 15 U/L (10-68); BILIRUBIN - TOTAL 0.34 mg/dL (0.2-1.3); CALC OSMOLALITY 283 mosm/kg (275-300); CALCIUM 8.7 mg/dL (8.5-10.1); CARBON DIOXIDE 22.5 mmol/L (21.0-32.0); CHLORIDE - SERUM 104 mmol/L (98-107); CREATININE - SERUM 1.5 mg/dL (0.6-1.3); GLUCOSE 111 mg/dL (74-106); POTASSIUM - SERUM 3.5 mmol/L (3.5-5.1); PROTEIN - SERUM 7.7 g/dL (6.4-8.2); SODIUM 141 mmol/L (136-145); UREA NITROGEN 19 mg/dL (7-18); eGFR NON AFRICAN AMERICAN 51 mL/min (90-120)
[2018-11-07 13:24] LABS: APTT 27.7 SECONDS (22.8-39.4); INR 0.99 (0.85-1.17); PROTIME 12.6 SECONDS (11.6-15.0)
[2018-11-07 13:29] LABS: CKMB 1.3 U/L (0.0-3.6); CREATINE KINASE 78 UL (21-232); MAGNESIUM - SERUM 1.6 mg/dL (1.8-2.4); TROPONIN-I < 0.017 ng/mL (0.000-0.060)
--- NOTE | 2018-11-07 13:37 | NUR ---
PT STABLE,CALL LIGHT WITHIN REACH, DENIES NEEDS, WILL CONTINUE TO MONITOR. AT BEDSIDE.
--- NOTE | 2018-11-07 14:47 | NUR ---
PT STABLE, CALL LIGHT WITHIN REACH, DENIES NEEDS, WILL CONTINUE TO MONITOR. AT BEDSIDE.
--- NOTE | 2018-11-07 15:39 | NUR ---
ATTEMPTED TO CALL REPORT. NURSE WILL CALL BACK. PT STABLE, CALL LIGHT WITHIN REACH, DENIES NEEDS, WILL CONTINUE TO MONITOR.
--- NOTE | 2018-11-07 16:57 | NUR ---
PT REPORT CALLED TO NURSE [facility]. ROOM 2124. PT STABLE, CALL LIGHT WITHIN REACH, DENIES NEEDS, WILL CONTINUE TO MONITOR.
--- NOTE | 2018-11-07 17:18 | NUR ---
RECEIVED PT TO ROOM 2123 VIA W/C IN STABLE CONDITION DENIES ANY CHEST PAIN IV OF NS @ 125 CC/HR PATENT TO RFA SITE FREE OF REDNESS OR EDEMA NAD NOTED
--- NOTE | 2018-11-07 19:30 | NUR ---
RESUMING PATIENT CARE. PATIENT ALERT AND ORIENTED, RESTING COMFORTABLY IN BED. RESPIRATIONS ARE EVEN AND UNLABORED. NO S/S OF DISTRESS. NO C/O PAIN. PATIENT REQUESTED TO SHOWER. IV INFUSION STOPPED. IV COVERED. CALL LIGHT WITHIN REACH. WILL CPOC.
[2018-11-07 20:14] LABS: CKMB 0.8 U/L (0.0-3.6); CREATINE KINASE 62 UL (21-232)
[2018-11-07 20:27] LABS: TROPONIN-I 0.088 ng/mL (0.000-0.060)
--- NOTE | 2018-11-07 20:39 | NUR ---
PAGED AND SPOKE WITH DR. MATTHEW. RECEIVED RESULT FROM TROPONIN OF 0.88. NEW ORDERS GIVEN. NO MORE TROPONINS NEEDED. WILL CANCEL LAST TROPONIN ORDERED AT 0130.
[2018-11-07] MEDS ORDERED: VIAGRA25 MG PO (22:14)
[2018-11-08] VITALS: BP 111/70
[2018-11-08 04:00] VITALS: BP 130/82
[2018-11-08 06:24] LABS: BASOPHILS 0.4 % (0-2); EOSINOPHILS 3.2 % (0-7); HEMATOCRIT 40.7 % (42.0-54.0); HEMOGLOBIN 13.6 g/dL (13.5-17.5); IMMATURE GRANULOCYTES 0.5 % (0-5); LYMPHOCYTES 25.7 % (15-50); MCH 30.7 pg (26.0-34.0); MCHC 33.4 g/dL (31.0-37.0); MCV 91.9 fL (80.0-100.0); MEAN PLATELET VOLUME 10.1 fL (7.4-10.4); MONOCYTES 10.6 % (2-11); NEUTROPHILS 59.6 % (40-80); PLATELET COUNT 206 10x3/uL (130-400); RBC 4.43 10x6/uL (4.20-6.10); RDW 14.3 % (11.5-14.5)
[2018-11-08 06:28] LABS: WBC 7.3 10x3/uL (4.8-10.8)
[2018-11-08 07:13] LABS: ALBUMIN 2.8 g/dL (3.4-5.0); ALKALINE PHOSPHATASE 69 U/L (46-116); BILIRUBIN - TOTAL 0.27 mg/dL (0.2-1.3); CALC OSMOLALITY 283 mosm/kg (275-300); CALCIUM 7.9 mg/dL (8.5-10.1); CARBON DIOXIDE 23.6 mmol/L (21.0-32.0); CHLORIDE - SERUM 107 mmol/L (98-107); CKMB 0.9 U/L (0.0-3.6); CREATINE KINASE 52 UL (21-232); CREATININE - SERUM 1.4 mg/dL (0.6-1.3); GLUCOSE 86 mg/dL (74-106); POTASSIUM - SERUM 3.7 mmol/L (3.5-5.1); PROTEIN - SERUM 6.2 g/dL (6.4-8.2); SODIUM 142 mmol/L (136-145); UREA NITROGEN 18 mg/dL (7-18); eGFR NON AFRICAN AMERICAN 55 mL/min (90-120)
[2018-11-08 07:15] LABS: ALT (SGPT) 10 U/L (10-68); TROPONIN-I 0.071 ng/mL (0.000-0.060)
[2018-11-08 08:19] VITALS: BP 134/82
--- NOTE | 2018-11-08 08:30 | NUR ---
ALERT AND ORIENTED X4. RESTING IN BED. CONSENTS FOR EMISSIONS REPAIR TECHNICIAN SIGNED ON CHART. PREOP COMPLETE. DENIES ANY NEEDS. CONTINUE PLAN OF CARE AND SAFETY PRECAUTIONS.
[2018-11-08 12:04] VITALS: BP 104/66
--- NOTE | 2018-11-08 16:15 | NUR ---
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 SEDATED, AROUSES TO STEMULI. PULSE +2 BULATERALLY. BP-107/66, HR-59 SINUS JARED, O2 SAT-97% WITH 2L NC. FAMILY AT BEDSIDE. RT GROIN DRESSING CLEAN DRY INTACT. FREE FROM BLEEDING. FREE FROM HEMATOMA. INSTRUCT TO REMAIN FLAT AND RT LEG STRAIGHT FOR NEXT 2HRS. CONTINUE PLAN OF CARE AND SAFETY PRECAUTIONS.
[2018-11-08 16:41] VITALS: BP 107/66
[2018-11-08 17:11] LABS: PLT FUNCT.(P2Y12) PLAVIX 192 PRU (194-418)
--- NOTE | 2018-11-08 17:33 | NUR ---
ALERT AND ORIENTED X4. LAYING IN BED. DEMANDING TO SIT UP. ENCOURAGE TO REMAIN FLAT FOR 30 MORE MINUTES. FAMILY AT BEDSIDE. REFUSE TO KEEP MONITORING VITALS AND TELEMETRY. INSISTS ON GOING HOME NOW. PATIENT STATES, "I'M NOT HAVING THE DAMN SURGERY." FAMILY AND PATIENT START TALKING AND ASK TO BE ALONE. CONTINUE PLAN OF CARE AND SAFETY PRECAUTIONS.
--- NOTE | 2018-11-08 18:26 | NUR ---
ALERT AND ORIENTED X4. SITTING UP IN BED. RT GROIN DRESSING CLEAN DRY INTACT. FREE FROM BLEEDING. FREE FROM HEMATOMA. PULSE +2 BILATERALLY. FAMILY AT BEDSIDE. AGREES TO STAY TO TALK TO IN A.M. REFUSE TO KEEP RT FA IV INFUSING. RT FA IV SL. REFUSE TO KEEP TELEMETRY ON. DENIES ANY NEEDS. ENCOURAGE TO DRINK PLENTY OF FLUIDS TO FLUSH KIDNEYS. CONTINUE PLAN OF CARE AND SAFETY PRECAUTIONS.
[2018-11-08 19:09] VITALS: Ht 175.3 cm; Wt 84.5 kg
--- NOTE | 2018-11-08 19:29 | NUR ---
RESUMING PATIENT CARE. PATIENT IS ALERT AND ORIENTED. RESPIRATIONS ARE EVEN AND UNLABORED. NO S/S OF DISTRESS. NO C/O PAIN. PATIENT FULLY DRESSED WANTING TO GO OUTSIDE AND SMOKE. PATIENT VISIBLY ANGRY, EXPRESSING THAT HE WANTS TO LEAVE. SPOKE WITH PATIENT OF THE IMPORTANCE OF STAYING AND SPEAKING WITH DR. JAVIER IN THE AM. PATIENT AGREED AT THIS TIME. PATIENT VERBALIZED NO NEEDS AT THIS TIME. CALL LIGHT WITHIN REACH. PATIENT BOARD UPDATED. WILL CPOC.
--- NOTE | 2018-11-08 19:55 | NUR ---
PATIENT REFUSING TELEMETRY. PATIENT LEFT PATIENT ROOM WITH HAT AND JACKET. HE SAID HE WAS GOING TO WALK AROUND THE FLOOR.
[2018-11-08 20:41] VITALS: BP 160/89
[2018-11-09] VITALS: BP 122/75
--- NOTE | 2018-11-09 02:00 | NUR ---
PATIENT IS ALERT AND ORIENTED RESTING COMFORTABLY IN BED. RESPIRATIONS ARE EVEN AND UNLABORED. PATIENT ASKED IF HE WAS HAVING DIFFICULTY SLEEPING. 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 PATIENT SHOWS NO S/S OF DISTRESS. NO C/O PAIN. CALL LIGHT WITHIN REACH. PATIENT CONTINUES TO REFUSE IV FLUIDS. WILL CPOC.
[2018-11-09 04:55] VITALS: BP 153/87
--- NOTE | 2018-11-09 07:25 | NUR ---
ASSESSMENT DONE. DENIES NEEDS.
[2018-11-09 08:12] VITALS: BP 169/92
--- NOTE | 2018-11-09 10:16 | NUR ---
UP AMBULATING HALLWAY. GAIT STEADY.
[2018-11-09 11:52] VITALS: BP 171/96
--- NOTE | 2018-11-09 11:59 | NUR ---
ASSUMING CARE. REPORT RECEVIED FROM PREVIOUS NURSE. PATIENT SITTING UP IN BEDSIDE CHAIR. DENIES ANY PAIN OR NEEDS. WILL CONTINUE TO MONITOR.
--- NOTE | 2018-11-09 15:06 | MORECARE ---
CASE MANAGEMENT DISCHARGE SUMMARY PATIENT: TRENT ALLISON RAY UNIT: [id number] ADM DATE: 11/07/18 AGE: 58 : 60 SEX: M ROOM/BED: D.2124 AUTHOR: ELVIRA MULLEN PHYSICIAN: REFERRING PHYSICIAN: KESHAWN MATTHEW MD DATE OF SERVICE: 11/09/18 Discharge Plan Patient Name: TRENT ALLISON Facility: [facility]:[place] : 1960 Planned Disposition: Home Anticipated Discharge Date: 11/09/18 Discharge Date: Expected LOS: 2 Initial Reviewer: [email or web address] Initial Review Date: 11/09/2018 Generated: 11/09/18 4:06 pm Patient Name: TRENT ALLISON Page [phone] at 1506 All edits/amendments must be made on the electronic document DICTATION DATE: 11/09/18 1505 TERMITE HELPER: KARISSA 11/09/18 1505 RPT#: [id number] DC DATE: STATUS: ADM IN [facility] [address] [place] [address] END OF REPORT
--- NOTE | 2018-11-09 18:15 | OP ---
PATIENT NAME: TRENT ALLISON MEDICAL RECORD: [id number] :60 LOCATION:D.M2 D.2124 ADMISSION DATE:11/07/18 SURGEON: KESHAWN MATTHEW MD DATE OF OPERATION: 11/08/2018 DATE OF SERVICE: 11/08/2018 PROCEDURES: 1. Left heart catheterization. 2. Selective coronary angiography. 3. Left ventriculogram. 4. Four-vessel carotid and vertebral angiography. 5. Aortofemoral runoff. 6. Abdominal aortography. INDICATION: Angina and coronary artery disease and peripheral vascular disease. DESCRIPTION OF PROCEDURE: After informed consent was obtained and after detailed description of risks, benefits as well as alternative therapies, the patient elected to proceed with angiogram. FINDINGS: First we will do four-vessel carotid vertebral angiography. There was subselection of each subclavian as well as the left carotid. RIGHT SIDE: The common internal and external carotids have mild plaquing, none greater than 20%, no flow-limiting stenosis. Vertebral artery has no significant disease. LEFT SYSTEM: The common internal and external carotids have mild plaquing, none greater than 20%, no flow-limiting stenosis. Vertebral artery has no significant disease. AORTA AORTOFEMORAL RUNOFF: Abdominal aortography was performed. The catheter was pulled down for aortofemoral runoff. Abdominal aortography reveals a well-apposition stent graft in the abdominal aorta. The stent graft extends into each iliac. RIGHT LEG: A. Iliac: The common iliac is replaced with a stent graft, this is well opposed. After this; however, there is a significant stenosis of the right iliac of greater than 80%. This is amenable to transcatheter revascularization. B. Femoral system: The common superficial and deep femoral have mild irregularities to moderate irregularities, but no flow-limiting stenosis. C. Popliteal and infrapopliteal vessels have preserved 3-vessel runoff to the foot. LEFT LEG: A. Iliac: The common iliac is replaced with the stent graft, this is well opposed. Elsewise the iliacs have no significant disease. B. Femoral system: The common superficial and deep femoral have moderate irregularities, but no flow-limiting stenosis. C. Popliteal and infrapopliteal vessels have preserved 3-vessel runoff to the foot. OPERATIVE REPORT [id number] TRENT ALLISON Left ventriculogram was performed in standard 30-degree DOLAN view, reveals good cardiac wall motion throughout all segments. Overall ejection fraction preserved at 50% to 55%. SELECTIVE CORONARY ANGIOGRAPHY: 1. Left main has 70% to 80% stenosis distally. 2. The left anterior descending has multiple previously placed stents with up to 95% in-stent restenosis. The distal LAD has good lumen suitable for grafting. 3. The left circumflex has previously placed stents. There is an area of 90% in-stent restenosis in the mid vessel. There are 3 obtuse marginals with lumen suitable for grafting. 4. Right coronary is small, nondominant. OVERALL IMPRESSION: 1. Preserved left ventricular function. 2. Severe coronary artery disease with restenosis of all the previously placed stents, distal targets are suitable for grafting. Evaluate for coronary bypass graft surgery. TRANSINT:[id number] Voice Confirmation ID: [id number] DOCUMENT ID: [id number] KESHAWN MATTHEW MD at 1815 CC: [id number] DICTATION DATE: 11/08/18 1608 APPLICATION SUPPORT INTERN: 11/08/18 1709 ADM IN [place] [id number] [place] [id number]
--- NOTE | 2018-11-17 12:11 | DS ---
PATIENT:TRENT ALLISON :60 MEDICAL RECORD: [id number] DISCHARGE SUMMARY ADMISSION DATE: 11/07/18 DISCHARGE DATE: 11/09/18 DIAGNOSES: 1. Angina. 2. Coronary artery disease. 3. Hypertension. 4. Hyperlipidemia. HISTORY: Mr. Allison presents with anginal symptomatology, found to have severe coronary artery disease of the LAD and circumflex with severe in-stent restenosis, was referred for coronary bypass graft surgery. This will be scheduled for next week. He is stopping his Plavix in preparation for that. Dr. Jasmine will schedule the surgery prior to discharge. TRANSINT:[id number] Voice Confirmation ID: [id number] DOCUMENT ID: [id number] EKSHAWN MATTHEW MD at 1211 CC: [id number] DICTATION DATE: 11/09/18 1201 SOLDER TECHNICIAN: 11/10/18 0349 DIS IN 11/09/18 [place] [id number] [place] [address]
== END 2018-11-09 18:00 | disposition home or self-care (01) ==
LOC: D.ER 12:36 → D.EDHOLD 13:56 → D.M2 13:56 → OBSVTIME 13:56 → D.EDHOLD 13:56 → D.M2 15:07
PROVIDERS: Family Medicine; Thoracic Surgery (Cardiothoracic Vascular Surgery); ADMIT Internal Medicine Interventional Cardiology
DX: I25.119 Atherosclerotic heart disease of native coronary artery with unspecified angina pectoris (principal); T82.855A Stenosis of coronary artery stent, initial encounter; Y83.8 Other surgical procedures as the cause of abnormal reaction of the patient, or of later complication, without mention of misadventure at the time of the procedure; I70.201 Unspecified atherosclerosis of native arteries of extremities, right leg; I10 Essential (primary) hypertension; E78.5 Hyperlipidemia, unspecified; Z72.0 Tobacco use

== ENCOUNTER 2018-11-13 10:36 | Inpatient (IN) | payer OTHER ==
[~2018-11-13] VITALS: Ht 175.3 cm; Wt 85.1 kg
[~2018-11-13 10:36] MED LIST changes: +VIAGRA25 MG PO
[2018-11-13] MEDS ORDERED: PLAVIX75 MG PO (10:56)
[2018-11-13 12:50] LABS: BASOPHILS 0.5 % (0-2); HEMATOCRIT 46.1 % (42.0-54.0); HEMOGLOBIN 15.9 g/dL (13.5-17.5); IMMATURE GRANULOCYTES 0.7 % (0-5); LYMPHOCYTES 31.2 % (15-50); MCH 31.4 pg (26.0-34.0); MCHC 34.5 g/dL (31.0-37.0); MCV 90.9 fL (80.0-100.0); MEAN PLATELET VOLUME 9.8 fL (7.4-10.4); MONOCYTES 10.4 % (2-11); NEUTROPHILS 54.2 % (40-80); PLATELET COUNT 236 10x3/uL (130-400); RBC 5.07 10x6/uL (4.20-6.10); RDW 13.9 % (11.5-14.5); WBC 8.2 10x3/uL (4.8-10.8)
[2018-11-13 13:13] LABS: INR 1.04 (0.85-1.17); PROTIME 13.1 SECONDS (11.6-15.0)
[2018-11-13 13:14] LABS: APTT 29.2 SECONDS (22.8-39.4)
[2018-11-13 13:15] LABS: APPEARANCE CLEAR (CLEAR); BACTERIA FEW /hpf (NONE SEEN); BILIRUBIN NEGATIVE (NEGATIVE); COLOR YELLOW (YELLOW); EPITHELIAL CELLS OCC /hpf (0-5); GLUCOSE NEGATIVE (NEGATIVE); KETONE NEGATIVE (NEGATIVE); MUCUS <1+ /lpf (NONE SEEN); NITRITE NEGATIVE (NEGATIVE); PROTEIN NEGATIVE (NEGATIVE); RED CELLS - URINE OCC /hpf (0-5); UROBILINOGEN NORMAL (NORMAL)
[2018-11-13 13:34] LABS: ALBUMIN 3.8 g/dL (3.4-5.0); ANION GAP 17.7 mmol/L (8-16); BILIRUBIN - TOTAL 0.62 mg/dL (0.2-1.3); CALCIUM 9.1 mg/dL (8.5-10.1); CARBON DIOXIDE 24.7 mmol/L (21.0-32.0); CREATININE - SERUM 1.5 mg/dL (0.6-1.3); PHOSPHOROUS 4.1 mg/dL (2.5-4.9); POTASSIUM - SERUM 4.4 mmol/L (3.5-5.1); PROTEIN - SERUM 7.7 g/dL (6.4-8.2); T4 THYROXIN - FREE 0.95 ng/dL (0.76-1.46); THYROID STIMULATING HORMONE 4.18 uIU/mL (0.36-3.74); URIC ACID 8.1 mg/dL (2.6-7.2)
[2018-11-17] VITALS (38 sets, daily range): BP systolic 65–130; BP diastolic 54–89; BMI 27.3
[2018-11-18] VITALS (78 sets, daily range): BP systolic 94–137; BP diastolic 54–82; Ht 175.3 cm; Wt 85.1 kg
[2018-11-18 06:03] LABS: HEMATOCRIT 33.6 % (42.0-54.0); HEMOGLOBIN 11.2 g/dL (13.5-17.5); MCH 30.4 pg (26.0-34.0); MCHC 33.3 g/dL (31.0-37.0); MCV 91.3 fL (80.0-100.0); MEAN PLATELET VOLUME 9.3 fL (7.4-10.4); RBC 3.68 10x6/uL (4.20-6.10); WBC 16.9 10x3/uL (4.8-10.8)
[2018-11-18 06:32] LABS: ALBUMIN 2.4 g/dL (3.4-5.0); ANION GAP 13.3 mmol/L (8-16); BILIRUBIN - TOTAL 0.53 mg/dL (0.2-1.3); CARBON DIOXIDE 25.9 mmol/L (21.0-32.0); CREATININE - SERUM 1.5 mg/dL (0.6-1.3); POTASSIUM - SERUM 4.2 mmol/L (3.5-5.1)
[2018-11-18 06:35] LABS: CALCIUM 6.7 mg/dL (8.5-10.1)
--- NOTE | 2018-11-18 11:26 | OP ---
PATIENT NAME: TRENT ALLISON MEDICAL RECORD: [id number] :60 LOCATION:D.CVI D.CV01 ADMISSION DATE:11/17/18 SURGEON: GIUSEPPE NOVAK MD DATE OF OPERATION: 11/17/2018 SURGEON: Giuseppe Novak MD ASSISTANTS: 1. Puneet Gaines MD 2. Rony Norman OPERATIONS PERFORMED: 1. Coronary artery bypass graft times 4 (free left internal mammary artery graft from the side of the saphenous vein graft to the ramus intermedius to the LAD distally, reverse saphenous vein grafts from aorta to ramus intermedius, aorta to posterolateral branch of circumflex coronary artery, and from the side of that vein graft to the first obtuse marginal distally). 2. Endoscopic saphenous vein harvest. PREOPERATIVE DIAGNOSIS: Coronary artery disease. POSTOPERATIVE DIAGNOSIS: Coronary artery disease. ANESTHESIA: General endotracheal anesthesia. ESTIMATED BLOOD LOSS: Total cardiopulmonary bypass with Cell Saver retransfusion. COMPLICATIONS: None. SPECIMENS: None. CONDITION: Stable. DISPOSITION: CV ICU. OPERATIVE FINDINGS: 1. Good quality greater saphenous vein harvested endoscopically from the right lower extremity. 2. Left internal mammary artery was only about a 2-mm vessel, and after takedown, the flow was poor. Attempts at dilation were unsuccessful, and with poor flow, it was converted to a free graft, cannulated, and had good flow. Due to the size of the proximal end of the left internal mammary artery graft, it was not taken directly off the aorta, but off the very proximal part of the saphenous vein graft to the ramus intermedius vessel and had good Doppler flow after anastomosis, after removing the cross-clamp, and after reversal of heparin. 3. Ramus intermedius graft, 1.25-mm vessel. 4. Obtuse marginal #1, tortuous 1.5-mm vessel. 5. Posterolateral branch of circumflex coronary artery 2.0-mm vessel with severe disease. 6. After removing the cross-clamp and filling the heart, the graft to the first obtuse marginal, which was originally anastomosed directly to the aorta, was under tension; therefore, we returned to cross-clamp, remove this graft from the aorta, and brought it off the side of the posterolateral graft. I then divided OPERATIVE REPORT [id number] TRENT ALLISON the ramus intermedius graft, oversewed it at the level of the aorta, and brought it up to the more superior or middle aortic punch site. This resulted in grafts without tension and excellent flow by Doppler. OPERATIVE INDICATION: Coronary artery disease. OPERATIVE SUMMARY IN DETAIL: The patient was brought to the operative suite. General anesthesia was obtained. The patient was prepped and draped. Greater saphenous vein was harvested from the right lower extremity utilizing endoscopic technique. Side branches were divided with electrocautery. The vessel ligated proximally and distally, and removed. Side branches were clipped. Leg was later irrigated and closed in 2 layers. Median sternotomy incision was made. Subcutaneous tissue was divided with electrocautery. Sternum was divided with a saw. Left hemisternum was elevated. Left pleural cavity was entered. Left internal mammary artery and vein was taken down as a pedicle graft. Through the small size of the internal mammary, heparin was given. The vessel was then divided distally. Flow was poor. Inspection of the vessel revealed a thick wall, was cannulated with papaverine, and a #3 Liz without the balloon inflated was passed all the way into the subclavian; however, still poor flow return. Therefore, the vessel was ligated proximally with a suture ligature and divided. It was cannulated for use as a free graft. Sternal retractor was placed. Pericardium was opened. Heparin had already been given. The aorta was cannulated. Dual stage venous cannula was inserted. The patient was placed in cardiopulmonary bypass. Sites for distal anastomoses were selected. Antegrade cardioplegia needle was inserted. The patient was cooled. Cross-clamp was placed. The patient was only cooled to 35 degrees due to cold agglutinins. Distal anastomoses were performed in standard technique and proximal anastomoses as described above in operative findings. The patient resumed spontaneous rhythm, atrioventricular paced due to bradycardia, and weaned from cardiopulmonary bypass and was stable. The patient was decannulated. Protamine was given. Antibiotic irrigation ensued. Drains were placed in the mediastinum and the left pleural cavity. Pericardial fat was loosely reapproximated. Left chest was evacuated and irrigated. Sternum was closed with wires. Fascia was closed. Subcutaneous tissue was closed. Skin was closed. Dermabond was placed. Needle and sponge counts reported correct. The patient was taken to ICU in stable condition. TRANSINT:[id number] Voice Confirmation ID: [id number] DOCUMENT ID: [id number] GIUSEPPE NOVAK MD at 1126 CC: KESHAWN MATTHEW [id number] DICTATION DATE: 11/17/18 1514 MODELING AND SIMULATION ANALYST: 11/17/18 1802 ADM IN [place] [id number] [place] [id number]
[2018-11-19] VITALS (23 sets, daily range): BP systolic 86–124; BP diastolic 46–79
[2018-11-19 06:30] LABS: MCH 30.4 pg (26.0-34.0); MCHC 33.6 g/dL (31.0-37.0); MCV 90.7 fL (80.0-100.0); MEAN PLATELET VOLUME 10.1 fL (7.4-10.4); RDW 13.8 % (11.5-14.5); WBC 13.9 10x3/uL (4.8-10.8)
[2018-11-19 06:36] LABS: RBC 2.89 10x6/uL (4.20-6.10)
[2018-11-19 06:37] LABS: HEMATOCRIT 26.2 % (42.0-54.0); HEMOGLOBIN 8.8 g/dL (13.5-17.5)
[2018-11-19 07:02] LABS: ALBUMIN 2.1 g/dL (3.4-5.0); ANION GAP 11.5 mmol/L (8-16); BILIRUBIN - TOTAL 0.63 mg/dL (0.2-1.3); CALCIUM 7.1 mg/dL (8.5-10.1); CARBON DIOXIDE 26.3 mmol/L (21.0-32.0); CREATININE - SERUM 1.6 mg/dL (0.6-1.3); POTASSIUM - SERUM 3.8 mmol/L (3.5-5.1); PROTEIN - SERUM 4.8 g/dL (6.4-8.2)
[2018-11-20] VITALS (24 sets, daily range): BP systolic 94–127; BP diastolic 50–78
[2018-11-20 05:01] LABS: HEMATOCRIT 26.8 % (42.0-54.0); HEMOGLOBIN 8.9 g/dL (13.5-17.5); MCHC 33.2 g/dL (31.0-37.0); MCV 90.2 fL (80.0-100.0); MEAN PLATELET VOLUME 9.9 fL (7.4-10.4); RBC 2.97 10x6/uL (4.20-6.10); RDW 13.7 % (11.5-14.5); WBC 12.1 10x3/uL (4.8-10.8)
[2018-11-20 05:23] LABS: ALBUMIN 2.2 g/dL (3.4-5.0); ANION GAP 12.5 mmol/L (8-16); BILIRUBIN - TOTAL 0.9 mg/dL (0.2-1.3); CALCIUM 7.4 mg/dL (8.5-10.1); CARBON DIOXIDE 25.5 mmol/L (21.0-32.0); CREATININE - SERUM 1.5 mg/dL (0.6-1.3); PROTEIN - SERUM 5.4 g/dL (6.4-8.2)
[2018-11-20 17:04] LABS: HEMOGLOBIN 8.8 g/dL (13.5-17.5)
[2018-11-21] VITALS (22 sets, daily range): BP systolic 93–123; BP diastolic 59–83
[2018-11-21 06:33] LABS: ALBUMIN 2.1 g/dL (3.4-5.0); ANION GAP 13.2 mmol/L (8-16); BILIRUBIN - TOTAL 0.93 mg/dL (0.2-1.3); CALCIUM 7.4 mg/dL (8.5-10.1); CARBON DIOXIDE 24.7 mmol/L (21.0-32.0); CREATININE - SERUM 1.4 mg/dL (0.6-1.3); POTASSIUM - SERUM 3.9 mmol/L (3.5-5.1); PROTEIN - SERUM 5.4 g/dL (6.4-8.2)
[2018-11-21 06:37] LABS: HEMATOCRIT 25.5 % (42.0-54.0); HEMOGLOBIN 8.7 g/dL (13.5-17.5); MCH 30.9 pg (26.0-34.0); MCHC 34.1 g/dL (31.0-37.0); MCV 90.4 fL (80.0-100.0); MEAN PLATELET VOLUME 10.2 fL (7.4-10.4); RBC 2.82 10x6/uL (4.20-6.10); RDW 13.5 % (11.5-14.5)
[2018-11-21 06:39] LABS: WBC 7.9 10x3/uL (4.8-10.8)
--- NOTE | 2018-11-21 15:55 | MORECARE ---
CASE MANAGEMENT DISCHARGE SUMMARY PATIENT: TRENT ALLISON RAY UNIT: [id number] ADM DATE: 11/17/18 AGE: 58 : 60 SEX: M ROOM/BED: [facility] AUTHOR: ELVIRA MULLEN PHYSICIAN: REFERRING PHYSICIAN: DOUG NOVAK MD DATE OF SERVICE: 11/21/18 Discharge Plan Patient Name: TRENT ALLISON [facility] [facility] 1960 Planned Disposition: Home Health Service Anticipated Discharge Date: Discharge Date: Expected LOS: Initial Reviewer: [email or web address] Initial Review Date: 11/21/2018 Generated: 11/21/18 4:54 pm DCPIA - Discharge Planning Initial Assessment Updated by [email or web address]: Grace Lucas on 11/21/18 3:51 pm * Is the patient Alert and Oriented? Yes * How many steps to enter\exit or inside your home? * PCP YONATAN * [facility] * Preadmission Environment Home Alone * ADLs Independent * Equipment None * List name and contact numbers for known caregivers / representatives who currently or will assist patient after discharge: [facility] [phone] * Verbal permission to speak to the caregivers and representatives has been obtained from the patient. Yes * Community resources currently utilized None * Additional services required to return to the preadmission environment? No * Can the patient safely return to the preadmission environment? Yes * Has this patient been hospitalized within the prior 30 days at any hospital? No Patient Name: TRENT ALLISON Page 32178 at 1555 All edits/amendments must be made on the electronic document DICTATION DATE: 11/21/181553 ENTRY CLERK: KARISSA 11/21/181553 RPT#: [id number] DC DATE: STATUS: ADM IN [facility] [address] [place] [address] END OF REPORT
--- NOTE | 2018-11-21 16:06 | MORECARE ---
CASE MANAGEMENT DISCHARGE SUMMARY PATIENT: TRENT ALLISON RAY UNIT: [id number] ADM DATE: 11/17/18 AGE: 58 : 60 SEX: M ROOM/BED: [facility] AUTHOR: ELVIRA MULLEN PHYSICIAN: REFERRING PHYSICIAN: DOUG NOVAK MD DATE OF SERVICE: 11/21/18 Discharge Plan Patient Name: TRENT ALLISON [facility] [facility] 1960 Planned Disposition: Home Health Service Anticipated Discharge Date: Discharge Date: Expected LOS: Initial Reviewer: [email or web address] Initial Review Date: 11/21/2018 Generated: 11/21/18 5:06 pm DCPIA - Discharge Planning Initial Assessment Updated by [email or web address]: Grace Lucas on 11/21/18 3:57 pm * Is the patient Alert and Oriented? Yes * How many steps to enter\exit or inside your home? * PCP YONATAN * [facility] * Preadmission Environment Home Alone * ADLs Independent * Equipment None * List name and contact numbers for known caregivers / representatives who currently or will assist patient after discharge: [facility] [phone] * Verbal permission to speak to the caregivers and representatives has been obtained from the patient. Yes * Community resources currently utilized None * Additional services required to return to the preadmission environment? No * Can the patient safely return to the preadmission environment? Yes * Has this patient been hospitalized within the prior 30 days at any hospital? Yes Last DP export: 11/21/18 2:55 pm Patient Name: TRENT ALLISON Page 54538 at 1606 All edits/amendments must be made on the electronic document DICTATION DATE: 11/21/181605 CABLE LAYER: KARISSA 11/21/18 160 RPT#: [id number] DC DATE: STATUS: ADM IN [facility] [address] [place] [address] END OF REPORT
[2018-11-22] VITALS (15 sets, daily range): BP systolic 95–128; BP diastolic 48–94
[2018-11-22 06:17] LABS: HEMATOCRIT 24.4 % (42.0-54.0); HEMOGLOBIN 8.3 g/dL (13.5-17.5); MCH 30.7 pg (26.0-34.0); MCV 90.4 fL (80.0-100.0); MEAN PLATELET VOLUME 9.5 fL (7.4-10.4); RBC 2.7 10x6/uL (4.20-6.10); RDW 13.7 % (11.5-14.5)
[2018-11-22 06:37] LABS: BILIRUBIN - TOTAL 0.57 mg/dL (0.2-1.3); CALCIUM 8.1 mg/dL (8.5-10.1); CARBON DIOXIDE 25.2 mmol/L (21.0-32.0); CREATININE - SERUM 1.4 mg/dL (0.6-1.3); POTASSIUM - SERUM 4.2 mmol/L (3.5-5.1); PROTEIN - SERUM 5.2 g/dL (6.4-8.2)
[2018-11-22] MEDS ORDERED: HEMOCYTE PLUS C1 CAP PO ×2 (13:34→13:56)
[2018-11-22] MEDS ORDERED: ASPIRIN EC81 M1 PO (13:36)
[2018-11-22] MEDS ORDERED: LOPRESSOR25 MG PO (13:36)
[2018-11-22] MEDS ORDERED: COLACE100 MG PO (13:37)
--- NOTE | 2018-11-22 14:47 | MORECARE ---
CASE MANAGEMENT DISCHARGE SUMMARY PATIENT: TRENT ALLISON RAY UNIT: [id number] ADM DATE: 11/17/18 AGE: 58 : 60 SEX: M ROOM/BED: [facility] AUTHOR: ELVIRA MULLEN PHYSICIAN: REFERRING PHYSICIAN: DOUG NOVAK MD DATE OF SERVICE: 11/22/18 Discharge Plan Patient Name: TRENT ALLISON [facility] [facility] 1960 Planned Disposition: Home Health Service Anticipated Discharge Date: Discharge Date: 11/22/2018 Expected LOS: Initial Reviewer: [email or web address] Initial Review Date: 11/21/2018 Generated: 11/22/18 3:47 pm DCPIA - Discharge Planning Initial Assessment Updated by [email or web address]: Grace Lucas on 11/21/18 3:57 pm * Is the patient Alert and Oriented? Yes * How many steps to enter\exit or inside your home? * PCP YONATAN * [facility] * Preadmission Environment Home Alone * ADLs Independent * Equipment None * List name and contact numbers for known caregivers / representatives who currently or will assist patient after discharge: [facility] [phone] * Verbal permission to speak to the caregivers and representatives has been obtained from the patient. Yes * Community resources currently utilized None * Additional services required to return to the preadmission environment? No * Can the patient safely return to the preadmission environment? Yes * Has this patient been hospitalized within the prior 30 days at any hospital? Yes Last DP export: 11/21/18 3:06 pm Patient Name: TRENT ALLISON Page 22266 at 1447 All edits/amendments must be made on the electronic document DICTATION DATE: 11/22/186 HOSE BUILDER: KARISSA 11/22/18 1446 RPT#: [id number] DC DATE:11/22/18 STATUS: DIS IN [facility] [address] [facility] [place] [address] END OF REPORT
--- NOTE | 2018-11-23 17:10 | TEE ---
PATIENT:TRENT ALLISON MEDICAL RECORD: [id number] LOCATION:[place] [address] AGE OF PATIENT: 58 ADMISSION DATE: 11/17/18 SEX: M REFERRING PHYSICIAN: INTERPRETING PHYSICIAN: KESHAWN SALCEDO MD TRANSESOPHAGEAL ECHOCARDIOGRAM Date: 11/17/18 LORI CHARGE Y INDICATIONS: CABG PREMEDICATIONS: PATIENT'S RESPONSE PROCEDURE DOPPLER MEASUREMENTS: LVIT LA PA RA LVOT RVOT Asc. Ao AV Gradient Peak AV Mean AV Area MV Gradient Peak MV Mean MV Area INTERPRETATION: LVd: 3.7 cm LVs: 2.8 cm Doppler: 2-D: COLOR FLOW DOPPLER NORMAL SALINE STUDY: MISCELLANOUS: DIAGNOSIS: PLAN: Projects Manager:1 Dr. Salcedo Profile Mill Operator Tape Control: William LEGGETT COMMENTS: DATE OF SERVICE: 11/17/2018 PROCEDURE: Transesophageal echo evaluation of valvular structures during bypass surgery. FINDINGS: 1. Left ventricular chamber size is within normal limits. Left ventricular systolic function is mildly reduced, overall ejection fraction 40%. 2. Left atrium, right atrium, and right ventricle chamber sizes are mildly TRANSESOPHAGEAL ECHOCARDIOGRAM REPORT [id number] TRENT ALLISON RA dilated. 3. Valvular structures have normal structure and motion. 4. Doppler interrogation only reveals trace mitral regurgitation, no other valvular insufficiency or stenosis. 5. No evidence of pericardial effusion or left ventricular thrombus. TRANSINT:[id number] Voice Confirmation ID: [id number] DOCUMENT ID: [id number] at 1710 CC: [id number] DICTATION DATE: 11/21/18 1203 NIPPLE MAKER: 11/22/18 0354 DIS IN 11/22/18 [place] [id number]
== END 2018-11-22 14:10 | disposition home or self-care (01) | DRG 236 ==
LOC: D.SDCHOLD 13:00 → D.CVICU 11-17 05:00 → D.SDCHOLD 11-17 05:00 → D.CVICU 11-17 08:13 → D.SDCHOLD 11-17 13:00 → D.CVICU 11-22 14:10
PROVIDERS: Family Medicine; Internal Medicine Cardiovascular Disease; ADMIT Thoracic Surgery (Cardiothoracic Vascular Surgery)
PROC: 021209W Bypass Coronary Artery, Three Arteries from Aorta with Autologous Venous Tissue, Open Approach (ICD-10-PCS; 2018-11-17)
PROC: 06BP4ZZ Excision of Right Saphenous Vein, Percutaneous Endoscopic Approach (ICD-10-PCS; 2018-11-17)
PROC: 5A1221Z Performance of Cardiac Output, Continuous (ICD-10-PCS; 2018-11-17)
PROC: 02100Z9 Bypass Coronary Artery, One Artery from Left Internal Mammary, Open Approach (ICD-10-PCS; principal; 2018-11-17 07:30)
DX: I25.10 Atherosclerotic heart disease of native coronary artery without angina pectoris (principal); D62 Acute posthemorrhagic anemia; F17.200 Nicotine dependence, unspecified, uncomplicated; I12.9 Hypertensive chronic kidney disease with stage 1 through stage 4 chronic kidney disease, or unspecified chronic kidney disease; N18.3 Chronic kidney disease, stage 3 (moderate); E78.5 Hyperlipidemia, unspecified; D69.6 Thrombocytopenia, unspecified; I71.4 Abdominal aortic aneurysm, without rupture

== ENCOUNTER → 2018-12-01 08:46 | Outpatient (CLI) | payer OTHER ==
[2018-11-18 14:04] VITALS: BMI 28.3
[~2018-12-01 08:46] MED LIST changes: +ASPIRIN EC81 M1 PO; +COLACE100 MG PO; +HEMOCYTE PLUS C1 CAP PO; +LOPRESSOR25 MG PO
[2018-12-01 08:59] LABS: HEMATOCRIT 32.4 % (42.0-54.0); HEMOGLOBIN 10.7 g/dL (13.5-17.5); MCH 30.2 pg (26.0-34.0); MCV 91.5 fL (80.0-100.0); MEAN PLATELET VOLUME 8.5 fL (7.4-10.4); RBC 3.54 10x6/uL (4.20-6.10); RDW 14.6 % (11.5-14.5); WBC 9.6 10x3/uL (4.8-10.8)
[2018-12-01 09:07] LABS: CREATININE - SERUM 1.5 mg/dL (0.6-1.3)
== END | disposition home or self-care (01) ==
LOC: D.LAB 11-27 08:45
PROVIDERS: Thoracic Surgery (Cardiothoracic Vascular Surgery)
DX: D64.9 Anemia, unspecified (principal)

== ENCOUNTER → 2018-12-13 10:55 | Outpatient (CLI) | payer OTHER ==
[2018-11-18 14:04] VITALS: BMI 28.3
[2018-12-13 11:28] LABS: HEMATOCRIT 39.4 % (42.0-54.0); HEMOGLOBIN 12.9 g/dL (13.5-17.5); MCH 30.4 pg (26.0-34.0); MCHC 32.7 g/dL (31.0-37.0); MCV 92.9 fL (80.0-100.0); RBC 4.24 10x6/uL (4.20-6.10); RDW 15.1 % (11.5-14.5); WBC 8.6 10x3/uL (4.8-10.8)
[2018-12-13 11:35] LABS: ALBUMIN 3.3 g/dL (3.4-5.0); ANION GAP 15.3 mmol/L (8-16); BILIRUBIN - TOTAL 0.35 mg/dL (0.2-1.3); CALCIUM 8.9 mg/dL (8.5-10.1); CREATININE - SERUM 1.4 mg/dL (0.6-1.3); POTASSIUM - SERUM 4.3 mmol/L (3.5-5.1); PROTEIN - SERUM 7.8 g/dL (6.4-8.2)
== END | disposition home or self-care (01) ==
LOC: D.LAB 08:00 → D.RAD 08:15 → D.LAB 10:55
PROVIDERS: ATTEND Thoracic Surgery (Cardiothoracic Vascular Surgery)
DX: J91.8 Pleural effusion in other conditions classified elsewhere (principal); D64.9 Anemia, unspecified

== ENCOUNTER → 2019-04-23 10:47 | Outpatient (CLI) | payer OTHER ==
[2018-11-18 14:04] VITALS: BMI 28.3
--- NOTE | 2019-04-30 18:38 | EC ---
PATIENT:TRENT ALLISON DATE OF SERVICE: 04/23/19 SEX: M MEDICAL RECORD: [id number] DATE OF : 60 LOCATION:[facility] AGE OF PATIENT: 59 ADMISSION DATE: 04/23/19 REFERRING PHYSICIAN: INTERPRETING PHYSICIAN: KESHAWN SALCEDO MD ECHOCARDIOGRAM REPORT ECHO CHARGES 4 ECHO COMPLETE Date: 04/23/19 CLINICAL DIAGNOSIS: ISCHEMIC CARDIOMYOPATHY/HTN H/O CAD/CABG ECHOCARDIOGRAPHIC MEASUREMENTS (adult normal given) AC root (d.<3.7cm) 3.7 cm LV Septum d (<1.2 cm> 1.2 cm Valve Excursion 2.0 cm LV Septum (systole) 1.7 cm Left Atria (s.<4.0cm> 3.8 cm LVPW d(<1.2cm) 1.2 cm RV (d.<2.3cm) 2.6 cm LVPW (sytole) 1.6 cm LV diastole(<5.6CM) 7.0 cm MV E-F(>70mm/sec) cm LV systole 5.4 cm LVOT Diameter 2.0 cm MV exc.(>10mm) cm Est.ejection fraction (50-75%) % DOPPLER: LVIT cm/sec A 136 cm/sec E 111 cm/sec LA cm/sec RVSP mmHg LVOT 100 cm/sec AOP1/2T m/s Asc. Ao 144 cm/sec RVOT 68.0 cm/sec RA cm/sec PA 112 cm/sec AV Gradient Peak 8.3 mmHg AV Mean 4.5 mmHg AV Area 2.2 cm MV Gradient Peak 8.1 mmHg MV Mean 3.5 mmHg MV Area cm COMMENTS: OP - HC Field Agronomist: 1 CHECO RAMIREZOE Business Integration Analyst: 1 Dr. Salcedo TAPE# PACS Pericardial Effusion N DATE OF SERVICE: ECHOCARDIOGRAM FINDINGS: 1. Left ventricular chamber size is mildly to moderately dilated. 2. Left ventricular systolic function is mildly reduced, overall ejection fraction 40% to 45%. 3. Left atrium is within normal limits at 3.8 cm. Right atrium and right ventricular chamber sizes are mildly dilated. ECHOCARDIOGRAM REPORT [id number] TRENT ALLISON 4. Valvular structures have normal structure and motion. 5. Doppler interrogation reveals mild mitral regurgitation, no other valvular insufficiency or stenosis. 6. No evidence of pericardial effusion or left ventricular thrombus. TRANSINT:[id number] Voice Confirmation ID: [id number] DOCUMENT ID: [id number] KESHAWN SALCEDO MD at 1838 CC: [id number] DICTATION DATE: 04/24/19 0646 SECURITIES LENDING TRADER: 04/24/19 0821 DEP CLI 04/23/19 [place] [id number] [place] [id number]
== END | disposition home or self-care (01) ==
LOC: D.HCCARDIO 10:47
PROVIDERS: ATTEND Internal Medicine Interventional Cardiology
DX: I25.10 Atherosclerotic heart disease of native coronary artery without angina pectoris (principal)

== ENCOUNTER 2019-06-19 18:57 | Observation (INO) | payer OTHER ==
[~2019-06-19] VITALS: Ht 175.3 cm; Wt 81.6 kg
--- NOTE | ~2019-06-19 | HEMODYNAMI ---
PATIENT:TRENT ALLISON MEDICAL RECORD: [id number] : 60 LOCATION:[facility] D.[address] [facility]# [id number] ADMISSION DATE: 06/19/19 Generatedon:06/20/201910:28 Patient name: TRENT ALLISON Patient #: [id number] SSN: [id number] : 1960 Date of study: 06/20/2019 Page: Of Hemodynamic Procedure Report Patient Data Patient Demographics Procedure consent was obtained First Name: TRENT Gender: Male Last Name: KEEGAN : 1960 Middle Initial: BRIAN Age: 59 year(s) Patient #: [id number] Race: Ethnicity: or SSN: [id number] Additional ID: [id number] Contact details [address]: [address] [place], [place] [address] State: [place] City: [place] Zip code: [address] Past Medical History Allergies Allergen Reaction Date Comments Reported Codeine 08/12/2017 Other allergy 11/08/2018 codeine Admission Admission Data Admission Date: 06/19/2019 Admission Time: 21:20 Arrival Date: 06/19/2019 Arrival Time: 21:20 Admit Source: Emergency Insurance Payor: Private department health insurance Room #: D.2114 Height (in.): 68.9 BSA: 1.98 (m2) Height (cm.): 175 BMI: 26.78 (kg/m2) Weight (lbs.): 180.78 Weight (kg.): 82 Lab Results Lab Result Date: 06/20/2019 Lab Result Time: 0:00 Biochemistry Name Units Result Min Max BUN mg/dl 13 --(--*-)-- 7 18 Creatinine mg/dl 1.5 --(----)-* 0.6 1.3 eGFR ml/min 51 *-(----)-- 90 120 NONAFRICAN CBC Name Units Result Min Max Hemoglobin g/dl 12.3 *-(----)-- 13.5 17.5 Procedure Procedure Types Cath Procedure Diagnostic Procedure LHC LHC w/Coronaries w/Grafts Sedation Charges Moderate Sedation up to 15 minutes PCI Procedure Coronary Stent Coronary Stent Initial Procedure Description Procedure Date Procedure Date: 06/20/2019 Procedure Start Time: 10:05 Procedure End Time: 10:27 Procedure Staff Name Function Gianfranco Salcedo MD Performing Physician Erika Covarrubias RT Monitor Mc Salamanca RT Scrub Yoly Myers RT Scrub Alina Lane RN Nurse Wolf Helms RN Nurse Procedure Data Cath Procedure Fluoroscopy Diagnostic fluoroscopy Total fluoroscopy Time: 6.2 time: 6.2 min min Diagnostic fluoroscopy Total fluoroscopy dose: dose: 1124 mGy 1124 mGy Contrast Material Contrast Material Type Amount (ml) Isovue 300 147 Entry Location Entry Primary Successful Side Size Upsize Upsize Entry Closure Succes sful Closure Location (Fr) 1 (Fr) 2 (Fr) Remarks Device Remarks Femoral Right 5 Fr 6 Fr Exoseal artery Short Estimated blood loss: 5 ml Diagnostic catheters Device Type Used For End Catheter Placement MULTIPACK Pigtail 5 Fr LV Angiography catheter MULTIPACK 3DRC 5Fr Multi-vessel catheter Angiography MULTIPACK JL 4.0 5Fr Left Coronary catheter Angiography DIAGNOSTIC AR2 MOD 5 Fr Multi-vessel catheter ([id number]) Angiography MULTIPACK Pigtail 5 Fr LV Angiography catheter Procedure Complications No complications Procedure Medications Medication Administration Route Dosage 0.9% NaCl I.V. 100 ml/hr Oxygen etCO2 Nasal cannula 2 l/min Lidocaine 2% added to field 20 Heparin Flush Bag added to field 2 bags (1000units/500ml NS) Plavix P.O. 75 mg Versed I.V. 2 mg Fentanyl I.V. 100 mcg Heparin Bolus I.V. 4000 units Hemodynamics Rest BSA: 1.98 (m2) HGB: 12.3 (g/dl) O2 Consumption: Estimated: 225.26 (ml/min) O2 Co nsumption indexed: Estimated:113.77 (ml/min/m) Heart Rate: 60 (bpm) Snapshots Pre Cath Intra NCS Post Cath Vital Signs Time Heart Resp SPO2 etCO2 NIBP Rhythm Pain Sedation Rate (ipm) (%) (mmHg) (mmHg) Status Level (bpm) 9:43:26 61 14 97 20.3 112/57(79) NSR 0 (11) 10(A) , No pain 9:48:19 56 13 98 33 107/70(86) NSR 0 (11) 10(A) , No pain 9:52:09 63 13 98 16 108/65(83) NSR 0 (11) 10(A) , No pain 9:57:08 54 12 100 16 143/56(87) NSR 0 (11) 10(A) , No pain 10:00:59 59 13 99 26.3 107/65(82) NSR 0 (11) 10(A) , No pain 10:05:56 60 12 99 22.6 127/57(84) NSR 0 (11) 10(A) , No pain 10:10:16 66 13 99 19 116/59(74) NSR 0 (11) 9(A) , No pain 10:14:10 69 11 97 13 105/59(76) NSR 0 (11) 9(A) , No pain 10:18:32 77 10 98 12.7 105/54(72) NSR 0 (11) 9(A) , No pain 10:22:50 69 13 98 12 103/57(72) NSR 0 (11) 10(A) , No pain 10:27:06 69 10 98 36.8 112/59(73) NSR 0 (11) 10(A) , No pain Medications Time Medication Route Dose Verified Delivered Reason Notes Effectiveness by by 9:50:33 0.9% NaCl I.V. 100 Gianfranco Alina used for ml/hr Matias Lane ping pong table assembler 9:50:39 Oxygen etCO2 2 Gianfranco Alina used for Nasal l/min Matias Lane procedure cannula RN 9:50:45 Lidocaine 2% added 20ml Gianfranco Gianfranco for local to vial Matias Salcedo MD anesthetic field 9:50:49 Heparin Flush added 2 Gianfranco Gianfranco used for Bag to bags Matias Salcedo MD procedure (1000units/500ml field NS) 9:51:21 Plavix P.O. 75 mg Gianfranco Alina for Matias Lane antiplatelet RN therapy 10:05:04 Versed I.V. 2 mg Gianfranco Alina for sedation Matias Lane RN 10:05:08 Fentanyl I.V. 100 Gianfranco Alina for sedation mcg Matias Lane RN 10:18:28 Heparin Bolus I.V. 4000 Gianfranco Alina for verif ied units Matias Lane anticoagulation with Dr. ARIELLE Salcedo Procedure Log Time Note 9:30:47 Mcjose Salamanca RT(R) sent for patient. Start room use. 9:37:34 Informed consent obtained and on chart 9:38:12 Diagnostic Cath Status : Elective 9:38:57 Time tracking: Regular hours (M-F 7:00 - 5:00) 9:39:02 Plan of Care:Hemodynamics will remain stable., Cardiac rhythm will remain stable., Comfort level will be maintained., Respiratory function will remain adequate., Patient/ family verbilizes understanding of procedure., Procedure tolerated without complication., Recovers from procedure without complications.. 9:39:07 Patient received from Med II to CCL 2 Alert and oriented. Tansferred to table in Supine position. 9:39:08 Warm blankets applied, and carole hugger turned on for patient comfort. 9:39:09 Correct patient and procedure confirmed by team. 9:39:09 ECG and BP/O2 sat monitors applied to patient. 9:42:38 Vital chart was started 9:42:59 Baseline sample Acquired. 9:43:04 Rhythm: sinus bradycardia 9:43:14 Full Disclosure recording started 9:43:22 H&P Date Dictated: 06/19/2019 Within 30 days and on chart.. 9:43:23 Pre-procedure instructions explained to patient. 9:43:24 Pre-op teaching completed and patient verbalized understanding. 9:43:25 Family in patients room. 9:43:26 Patient NPO since Midnight. 9:43:28 Is the patient allergic to Iodine/contrast media? No. 9:43:29 Is patient on blood thinner?Yes 9:43:32 ACC The patient was administered the following blood thiners within the last 24 hours: ACCPlavix 9:43:41 Patient diabetic? No. 9:43:45 Previous problem with sedation/anesthesia? No ? 9:43:49 Snore? Yes 9:43:51 Sleep apnea? No 9:43:51 Deviated septum? No 9:43:52 Opens mouth fully? Yes 9:43:53 Sticks out tongue? Yes 9:43:55 Airway obstruction? No ? 9:43:56 Dentures? No ? 9:44:00 Pre procedure: right dorsailis pedis pulse 1+ Palpable, but thready & weak; easily obliterated 9:44:05 Patient pain scale 0/10 ?. 9:45:21 IV patent on arrival in left forearm with 0.9% NaCl at [facility]. 9:45:24 Lab results completed and on chart. 9:45:28 Right groin area was prepped with chlora-prep and draped in sterile fashion 9:45:28 Alarms reviewed by RSamson N. 9:45:29 Sharps counted by scrub and verified by R.N. 9:48:30 Admit Source: Emergency department 9:48:34 Arrival Date: 06/19/2019 9:20:00 PM 9:48:41 Insurance Payor : Private health insurance 9:48:49 Patient Height : 68.9 inches 9:48:55 Patient Weight : 180.78 lbs 9:50:33 0.9% NaCl 100 ml/hr I.V. was administered by Alina Lane RN; used for procedure; 9:50:39 Oxygen 2 l/min etCO2 Nasal cannula was administered by Alina Lane RN; used for procedure; 9:50:45 Lidocaine 2% 20ml vial added to field was administered by Gianfranco Salcedo MD; for local anesthetic; 9:50:46 Lab Result : eGFR NONAFRICAN 51 ml/min 9:50:46 Lab Result : Hemoglobin 12.3 g/dl 9:50:46 Lab Result : BUN 13 mg/dl 9:50:46 Lab Result : Creatinine 1.5 mg/dl 9:50:49 Heparin Flush Bag (1000units/500ml NS) 2 bags added to field was administered by Gianfranco Salcedo MD; used for procedure; 9:51:03 3a) 45-59 Moderately reduced kidney function. 9:51:20 Maximum allowable contrast dose (3.7 X eGFR X 0.75)142 ml. 9:51:21 Plavix 75 mg P.O. was administered by Alina Lane RN; for antiplatelet therapy; 9:51:25 Sedation plan: IV Moderate Sedation Medication:Versed, Fentanyl 9:51:29 Use device set Femoral Dx 9:51:30 ACIST Syringe (55435) opened to sterile field. 9:51:31 Bag Decanter (2002) opened to sterile field. 9:51:31 Medline Cath Pack ([id number]) opened to sterile field. 9:51:32 ACIST Hand Control (14137) opened to sterile field. 9:51:33 ACIST Manifold (83007) opened to sterile field. 9:51:33 DIAGNOSTIC Multipack 5Fr catheter set (CF1098) opened to sterile field. 9:51:33 Tegaderm 4 x 4 (1626W) opened to sterile field. 9:51:35 SHEATH 5FR Cornish (IJD112) opened to sterile field. 9:51:36 EMERALD Guide Wire (897-696) opened to sterile field. 9:57:58 Zero performed for pressure channel P1 10:01:49 Physician arrived 10::49 --------ALL STOP TIME OUT------ 10::49 Final Timeout: patient, procedure, and site verified with staff and physician. All members of the team are in agreement. 10:01:51 Right groin site verified by team. 10:01:55 Fire Safety Assessment: A--An alcohol-based skin anteseptic being used preoperatively., C--Open oxygen or nitrous oxide is being used., D--An ESU, laser, or fiber-optic light is being used. 10:02:05 Physical assessment completed. ASA score P 2 - A patient with mild systemic disease as per Gianfranco Salcedo MD. 10:05:04 Versed 2 mg I.V. was administered by Alina Lane RN; for sedation; 10:05:08 Fentanyl 100 mcg I.V. was administered by Alina Lane RN; for sedation; 10:05:15 Procedure started. 10:05:21 Local anesthetic to right femoral artery with Lidocaine 2% by Gianfranco Salcedo MD.INITIAL ACCESS ONLY 10:05:33 A 5 Fr sheath was inserted into the Right Femoral artery 10:07:45 A MULTIPACK Pigtail 5 Fr catheter was advanced over the wire and used for LV Angiography. 10:08:25 Catheter removed. unable to cannulate vessel. 10:09:30 TORQUE DEVICE PLASTIC .038 ( TD01) opened to sterile field. 10:09:32 GLIDE WIRE ANGLE 260cm (MX8099) opened to sterile field. 10:10:10 glide wire and 3drc used to get access through aortic stents 10:10:35 A MULTIPACK 3DRC 5Fr catheter was advanced over the wire and used for Multi-vessel Angiography. 10:11:01 MANN angiography performed. 10:11:12 mann occluded 10:11:16 RCA angiography performed. 10:11:19 Injector settings: Ml/sec: 3, Volume: 6, 10:11:28 Catheter removed. 10:11:35 A MULTIPACK JL 4.0 5Fr catheter was advanced over the wire and used for Left Coronary Angiography. 10:12:52 LCA angiography performed. 10:12:54 Injector settings: Ml/sec: 3, Volume: 6, 10:14:01 Catheter removed. 10:14:21 A DIAGNOSTIC AR2 MOD 5 Fr catheter (652176Y) was advanced over the wire and used for Multi-vessel Angiography. 10:15:35 SVG to LAD angiography performed. 10:16:28 SVG to Circ angiography performed. 10:17:23 Catheter removed. 10:17:46 SHEATH 6FR Cornish (OMR934) opened to sterile field. 10:17:47 INFLATOR Merit BasixCompak (TM1848) opened to sterile field. 10:17:55 CHOICE PT Extra Support 182cm wire ([id number]) opened to sterile field. 10:18:19 GUIDE 6FR AR 2.0 SH catheter (LP5LY4MG) opened to sterile field. 10:18:28 Heparin Bolus 4000 units I.V. was administered by Alina Lane RN; for anticoagulation; verified with Dr. Salcedo 10:18:36 Sheath upsized to a 6 Fr Short. 10:18:43 ACC Pre-intervention MONIQUE Flow is 3. 10:19:01 ACCDominant side:Right 10:19:25 A MULTIPACK Pigtail 5 Fr catheter was advanced over the wire and used for LV Angiography. 10:19:36 LV hemodynamics recorded. 10:19:37 LV gram done using DOLAN 10:19:40 Injector settings: Ml/sec: 5, Volume: 15, 10:19:47 EF : 55 % 10:19:54 Catheter removed. 10:20:24 Proceeding to intervention. 10:20:58 6 Fr ar 2 sh guide catheter was inserted over the wire 10:21:03 choice pt wire advanced. 10:21:04 Wire advanced across lesion. 10:22:52 Pre PCI Site: [place] Diag1 has 90% stenosis. 10:23:14 Place stent Inflation Number: 1 A SEAN RX 2.0 x 8 stent ([id number]) was prepped and advanced across the 1st Diag 90. The stent was deployed at 11 NITA for 0:10 (min:sec) 0. 10:23:22 Post PCI Site: [place] Diag1 has 0% stenosis. 10:23:28 ACC Post-intervention MONIQUE Flow is 3. 10:24:53 Stent catheter was removed intact over wire. 10:24:53 Wire removed. 10:24:54 Guide catheter removed. 10:25:01 EXOSEAL 6Fr (EX600) opened to sterile field. 10:25:19 Sheath removed intact; hemostasis achieved with Exoseal to the Right Femoral artery. 10:25:27 Procedure ended.(Physican Out) 10:25:43 Fluoroscopy time 06.20 minutes. 10:25:56 Flurop Dose total: 1124 10:25:56 Fluoroscopy dose: 1124 mGy 10:26:05 Dose Area Product 97454 mGy/cm. 10:26:14 Contrast amount:Isovue 300 147ml. 10:26:17 Sharps counted by scrub and verified by R.N. 10:26:23 Post-op/insertion site Right Femoral artery dressed using a 4 x 4 and Tegaderm. 10:26:25 Post Procedure Pulses reassessed and unchanged 10:26:28 Post procedure rhythm: unchanged. 10:26:30 Estimated blood loss: 5 ml 10:26:33 Post procedure instruction explained to patient.Patient verbalizes understanding. 10:26:33 Patient needs reinforcement of post procedure teaching. 10:26:57 Procedure type changed to Cath procedure, Diagnostic procedure, LHC, LHC w/Coronaries w/Grafts, Sedation Charges, Moderate Sedation up to 15 minutes, PCI procedure, Coronary Stent, Coronary Stent Initial 10::58 Procedure and supply charges have been captured, reviewed, submitted and are correct. 10:27:02 Procedure Complication : No complications 10:27:10 Vital chart was stopped 10:27:10 See physician's report for complete and final results. 10:27:14 Report given to Pre/Post Procedure Room. 10:27:17 Patient transfered to Pre/Post Procedure Room with Stretcher. 10::19 Procedure ended. 10:27:19 Full Disclosure recording stopped 10:27:25 ACC-PCI Only Patient was given prescriptions, or instructed by Gianfranco Salcedo MD to start/continue the following medications upon discharge: Plavix 10::27 End room use (Document Last) Intervention Summary Intervention Notes Time ActionType Lesion and Equipment Used Action# Pressure Duration Attributes 10:23:14 Place stent 1st Diag SEAN RX 2.0 x 1 11 00:10 8 stent ([id number]) Device Usage Item Name Manufacture Quantity Catalog Number Hospital Part Current M inimal Lot# / Charge Number Stock Stock Serial# Code ACIST Syringe Acist 1 26070 495876 929003 742166 2 0 (53774) Medical Systems Inc Bag Decanter Microtek 1 2001S 808255 49581 432082 5 (2001S) Medical Inc. Medline Cath Medline 1 [id number] 071001 32805 162757 5 Pack ([id number]) ACIST Hand Acist 1 40426 269501 607678 369263 5 Control Medical (71136) Systems Inc ACIST Manifold Acist 1 56848 870717 581423 574876 5 (79453) Medical Systems Inc DIAGNOSTIC Cardinal 1 AT5037 316034 10277 211639 3 0 Multipack 5Fr Health catheter set (DS5703) Tegaderm 4 x 4 3M 1 1626W 455379 338040 860524 5 (1626W) SHEATH 5FR Terumo 1 JWB176 279655 742017 718230 5 Cornish (VNR035) EMERALD Guide Cardinal 1 502-455 118452 827761 721665 5 Wire (502-455) Health MULTIPACK Cardinal 1 872474 5 Pigtail 5 Fr Health catheter TORQUE DEVICE Dagmar 1 TD01 653119 354434 156352 5 PLASTIC .038 ( Scientific TD01) GLIDE WIRE Terumo 1 FE9882 730259 442232 148319 5 ANGLE 260cm (WH6395) MULTIPACK 3DRC Cardinal 1 075843 5 5Fr catheter Health MULTIPACK JL Cardinal 1 753908 5 4.0 5Fr Health catheter DIAGNOSTIC AR2 Cardinal 1 378609Q 819772 706690 452450 2 0 MOD 5 Fr Health catheter (711631H) SHEATH 6FR Terumo 1 YMK222 468630 184215 309433 4 0 Cornish (FPX323) INFLATOR Merit Merit 1 OR3750 771312 950707 892360 1 5 [facility] Medical (EC5483) CHOICE PT Dagmar 1 [id number] 901926 684123 049306 5 Extra Support Scientific 182cm wire ([id number]) GUIDE 6FR AR Medtronic 1 [id number] 496715 32118 679083 1 2.0 SH catheter ([id number]) SEAN RX 2.0 x Medtronic 1 [id number] 711151 4775265 280798 5 [id number] 8 stent ([id number]) EXOSEAL 6Fr Cardinal 1 EX600 669161 873649 699799 1 0 (EX600) Health Signature Audit [place] Stage Time Signature Unsigned Intra-Procedure 06/20/2019 Erika Covarrubias 10:28:32 AM RT(R) Signatures Performing Physician : Signature : Gianfranco Salcedo MD Date : Time : Monitor : Erika Covarrubias RT Signature : Date : Time : Nurse : Alina Lane RN Signature : Date : Time : Nurse : Wolf Helms Signature : RN Date : Time : [facility] [address] [place] [address]
[2019-06-19 19:17] VITALS: BP 156/95
[2019-06-19 19:54] LABS: BASOPHILS 0.2 % (0-2); EOSINOPHILS 2.8 % (0-7); HEMATOCRIT 35.8 % (42.0-54.0); HEMOGLOBIN 12.3 g/dL (13.5-17.5); IMMATURE GRANULOCYTES 0.3 % (0-5); LYMPHOCYTES 24.4 % (15-50); MCH 28.9 pg (26.0-34.0); MCHC 34.4 g/dL (31.0-37.0); MEAN PLATELET VOLUME 9.4 fL (7.4-10.4); MONOCYTES 8.7 % (2-11); NEUTROPHILS 63.6 % (40-80); RBC 4.26 10x6/uL (4.20-6.10); RDW 16.8 % (11.5-14.5)
[2019-06-19 19:59] LABS: PLATELET COUNT 186 10x3/uL (130-400)
[2019-06-19 20:10] LABS: ALBUMIN 3.2 g/dL (3.4-5.0); ALKALINE PHOSPHATASE 102 U/L (46-116); ALT (SGPT) 10 U/L (10-68); CALC OSMOLALITY 282 mosm/kg (275-300); CALCIUM 8.6 mg/dL (8.5-10.1); CARBON DIOXIDE 27.4 mmol/L (21.0-32.0); CHLORIDE - SERUM 106 mmol/L (98-107); CREATININE - SERUM 1.5 mg/dL (0.6-1.3); GLUCOSE 97 mg/dL (74-106); POTASSIUM - SERUM 3.9 mmol/L (3.5-5.1); PROTEIN - SERUM 6.5 g/dL (6.4-8.2); SODIUM 142 mmol/L (136-145); UREA NITROGEN 13 mg/dL (7-18); eGFR NON AFRICAN AMERICAN 51 mL/min (90-120)
[2019-06-19 20:13] LABS: APTT 27.7 SECONDS (22.8-39.4); PROTIME 12.7 SECONDS (11.6-15.0)
[2019-06-19 20:23] LABS: CKMB 1.1 U/L (0.0-3.6); CREATINE KINASE 69 UL (21-232); MAGNESIUM - SERUM 1.8 mg/dL (1.8-2.4); TROPONIN-I 0.042 ng/mL (0.000-0.060)
[2019-06-19 21:00] VITALS: BP 156/97
[2019-06-19 22:34] LABS: CKMB 2.8 U/L (0.0-3.6); CREATINE KINASE 75 UL (21-232)
[2019-06-19 22:38] LABS: TROPONIN-I 0.505 ng/mL (0.000-0.060)
[2019-06-19] MEDS ORDERED: LISINOPRIL-HCT1 EAC8 PO (22:45)
[2019-06-19] MEDS ORDERED: PLAVIX75 MG PO (22:46)
[2019-06-19 22:53] VITALS: BP 173/110; BMI 26.6
[2019-06-20 00:41] VITALS: BP 116/88
[2019-06-20 04:00] VITALS: BP 102/56
[2019-06-20 06:26] LABS: CKMB 5.9 U/L (0.0-3.6); CREATINE KINASE 88 UL (21-232)
[2019-06-20 06:28] LABS: TROPONIN-I 2.846 ng/mL (0.000-0.060)
[2019-06-20 08:20] VITALS: BP 106/65
[2019-06-20 14:05] VITALS: Ht 175.3 cm; Wt 81.6 kg
--- NOTE | 2019-06-27 14:31 | DS ---
PATIENT:TRENT ALLISON :60 MEDICAL RECORD: [id number] DISCHARGE SUMMARY ADMISSION DATE: 06/19/19 DISCHARGE DATE: 06/20/19 DIAGNOSES: 1. Non-Q-wave myocardial infarction. 2. Percutaneous transluminal coronary angioplasty stent of left anterior descending diagonal through patent vein graft. 3. Coronary artery disease. 4. Status post coronary artery bypass graft surgery and status post coronary stenting. 5. Hypertension. 6. Hyperlipidemia. HISTORY: Mr. Allison presents with unstable angina, non-Q-wave myocardial infarction, found to have 90% stenosis of the LAD diagonal through the patent vein graft, underwent successful PTCA stent of this territory. He was discharged home with no change in his medications as he is already on aspirin and Plavix. TRANSINT:[id number] Voice Confirmation ID: [id number] DOCUMENT ID: [id number] KESHAWN MATTHEW MD at 1431 CC: [id number] DICTATION DATE: 06/20/19 1032 AIR CONDITIONING UNIT ASSEMBLER: 06/21/19 0030 DIS IN 06/20/19 [place] [place] [address]
--- NOTE | 2019-06-27 14:31 | EC ---
PATIENT:TRENT ALLISON DATE OF SERVICE: 06/19/19 SEX: M MEDICAL RECORD: [id number] DATE OF : 60 [facility] AGE OF PATIENT: 59 ADMISSION DATE: 06/19/19 REFERRING PHYSICIAN: INTERPRETING PHYSICIAN: KESHAWN SALCEDO MD ECHOCARDIOGRAM REPORT ECHO CHARGES 5 ECHO LIMITED Date: 06/20/19 CLINICAL DIAGNOSIS: CHEST PAIN ECHOCARDIOGRAPHIC MEASUREMENTS (adult normal given) AC root (d.<3.7cm) 0 cm LV Septum d (<1.2 cm> 0 cm Valve Excursion 0 cm LV Septum (systole) 00 cm Left Atria (s.<4.0cm> 0 cm LVPW d(<1.2cm) 0 cm RV (d.<2.3cm) 00 cm LVPW (sytole) 0 cm LV diastole(<5.6CM) 0 cm MV E-F(>70mm/sec) 0 cm LV systole 0 cm LVOT Diameter 0 cm MV exc.(>10mm) 0 cm Est.ejection fraction (50-75%) % DOPPLER: LVIT cm/sec A 0 cm/sec E 0 cm/sec LA 0 cm/sec RVSP 14.9 mmHg LVOT 0 cm/sec AOP1/2T m/s Asc. Ao 0 cm/sec RVOT 0 cm/sec RA cm/sec PA 0 cm/sec AV Gradient Peak 0 mmHg AV Mean 0 mmHg AV Area 0 cm MV Gradient Peak 0 mmHg MV Mean 0 mmHg MV Area cm COMMENTS: Marine Equipment Engineer: Elke QUINONES Nursing Services Manager: William Salcedo TAPE# PACS Pericardial Effusion N DATE OF SERVICE: 06/20/2019 FINDINGS: 1. Left ventricular chamber size is within normal limits. Left ventricular systolic function is normal. Overall ejection fraction estimated at 55% to 60%. 2. Left atrium, right atrium, and right ventricle chamber sizes are within normal limits. 3. Valvular structures have normal structure and motion. 4. Doppler interrogation reveals only mild tricuspid regurgitation, no other valvular insufficiency or stenosis. Pulmonary systolic pressure is estimated at ECHOCARDIOGRAM REPORT [id number] TRENT ALLISON 15 mmHg. 5. No evidence of pericardial effusion or left ventricular thrombus. TRANSINT:[id number] Voice Confirmation ID: [id number] DOCUMENT ID: [id number] KESHAWN SALCEDO MD at 1431 CC: [id number] DICTATION DATE: 06/20/19 1549 PEER COUNSELOR: 06/20/19 2258 DIS IN 06/20/19 [place] [place] [address]
--- NOTE | 2019-06-27 14:31 | OP ---
PATIENT NAME: TRENT ALLISON MEDICAL RECORD: [id number] :60 LOCATION:[facility] ADMISSION DATE:06/19/19 SURGEON: KESHAWN MATTHEW MD DATE OF OPERATION: 06/20/2019 PROCEDURES: 1. PTCA stent LAD diagonal through patent vein graft. 2. Left heart catheterization. 3. Selective coronary angiography. 4. Vein graft angiography. 5. PERKINS angiography. 6. Left ventriculogram. INDICATION: Non-Q-wave myocardial infarction. PROCEDURE IN DETAIL: After informed consent was obtained and after a detailed description of risks, benefits as well as alternative therapies, the patient elected to proceed with angiogram and angioplasty. The right femoral area was prepped and draped in normal sterile fashion. The right femoral artery was cannulated via modified Seldinger technique with placement of 6-Syriac sheath. All catheters exchanged through this sheath. FINDINGS: Left ventriculogram was performed in normal standard 30-degree DOLAN view, reveals good cardiac wall motion, ejection fraction is 60%. SELECTIVE CORONARY ANGIOGRAPHY: 1. Left main has previously placed stent. This is open. 2. Left anterior descending is totally occluded in mid vessel. 3. PERKINS to the distal PERKINS is closed. 4. Vein graft is a Y-graft to LAD and diagonal was patent. The distal LAD is patent. The distal diagonal has a 90+ percent stenosis at the anastomosis. 5. The circumflex is large, dominant multiple previously placed stents subtotally occluded in mid vessel. 6. Vein graft to the distal circumflex is patent. 7. Right coronary is small, nondominant. PTCA STENT OF THE LAD DIAGONAL THROUGH THE PATENT VEIN GRAFT: The stent used was a 2.0 x 8 mm Gaston. Result was 0% residual stenosis. OVERALL IMPRESSION: Successful percutaneous transluminal angioplasty stent of the LAD diagonal through the patent vein graft going from 90+ percent initial stenosis to 0% residual. TRANSINT:[id number] Voice Confirmation ID: [id number] DOCUMENT ID: [id number] KESHAWN MATTHEW MD at 1431 CC: [id number] DICTATION DATE: 06/20/19 1031 PASSENGER ATTENDANT: 06/20/19 1133 DIS IN 06/20/19 [place] [address]
--- NOTE | 2019-06-27 14:31 | HP ---
PATIENT: TRENT ALLISON MEDICAL RECORD: [id number] ACCOUNT: [id number] [facility] 60 ADMISSION DATE: 06/19/19 PCP: MENA TAM DO HISTORY AND PHYSICAL EXAMINATION DIAGNOSES: 1. Non-Q-wave myocardial infarction. 2. Unstable angina. 3. Coronary artery disease. 4. Previous multivessel percutaneous transluminal coronary angioplasty stent. 5. Previous bypass surgery. 6. Hypertension. 7. Hyperlipidemia. HISTORY OF PRESENT ILLNESS: Mr. Allison is status post 4-vessel bypass in November. He began having chest discomfort greater than a week ago, it escalated to class IV unstable angina with multiple sublingual nitro, chest pain at rest. His troponin is positive for a non-Q-wave myocardial infarction. PHYSICAL EXAMINATION: CONSTITUTIONAL/GENERAL APPEARANCE: Well nourished, well developed, appears stated age. EYES: Lids and conjunctivae noninjected. No discharge. No pallor. ENT: Lips within normal limit. No cyanosis. No pallor. NECK: Carotid arteries, bilateral normal upstroke. No bruits. No thrills. No jugular venous pressure or distention. CERVICAL LYMPH NODES: Nontender. Nonenlarged. THYROID: Not enlarged. No nodules. CARDIOVASCULAR: Precordial exam, nondisplaced. No heaves or pericardial thrills. Rate and rhythm, regular. Heart sounds, normal S1, normal S2. No S3, no gallop, no rub. Systolic murmur, not heard. Diastolic murmur, not heard. RESPIRATORY: Respiratory effort, unlabored. Normal curvature. No thoracic deformity. No chest wall tenderness. Percussion, resonant. Auscultation, clear. No wheezes, no rales, no rhonchi. ABDOMEN: Soft, nondistended, nontender. No abdominal pain, no vomiting and normal appetite. MUSCULOSKELETAL: No joint tenderness, normal gait, normal tone. SKIN: Warm and dry. OVERALL IMPRESSION: Non-Q-wave myocardial infarction with class IV unstable anginal symptomatology. At this time, he is on optimal medical management with systolic blood pressure in the 110 range, heart rate in the 70s. He continues to have class IV anginal symptomatology. We will proceed with coronary angiography in the a.m. Further care depends upon the findings of the angiography. TRANSINT:[id number] Voice Confirmation ID: [id number] DOCUMENT ID: [id number] HISTORY AND PHYSICAL [id number] TRENT ALLISON JEFFREY MD at 1431 CC: [id number] DICTATION DATE: 06/20/19221 SPANISHER: 06/20/19 0236 DIS IN 06/20/19 [facility] [address] [place] [address]
== END 2019-06-20 15:00 | disposition home or self-care (01) ==
LOC: D.ER 18:57 → D.M2 21:20 → OBSVTIME 21:21 → D.CLR 06-20 10:40
PROVIDERS: Emergency Medicine; ADMIT Internal Medicine Interventional Cardiology; ATTEND Internal Medicine Interventional Cardiology
DX: I21.4 Non-ST elevation (NSTEMI) myocardial infarction (principal); I25.110 Atherosclerotic heart disease of native coronary artery with unstable angina pectoris; I10 Essential (primary) hypertension; E78.5 Hyperlipidemia, unspecified; Z95.1 Presence of aortocoronary bypass graft

== ENCOUNTER → 2019-07-03 07:51 | Outpatient (CLI) | payer OTHER ==
[2019-06-20 14:05] VITALS: BMI 26.5
[~2019-07-03 07:51] MED LIST changes: +LISINOPRIL-HCT1 EAC8 PO
== END | disposition home or self-care (01) ==
LOC: D.CT 07:51
PROVIDERS: ATTEND Internal Medicine Cardiovascular Disease
DX: I71.4 Abdominal aortic aneurysm, without rupture (principal)

== ENCOUNTER 2020-03-20 12:54 | Observation (INO) | payer OTHER ==
[~2020-03-20] VITALS: Ht 175.3 cm; Wt 81.6 kg
[2020-03-21 13:49] VITALS: Ht 175.3 cm; Wt 81.6 kg
[2020-03-21 16:00] VITALS: BP 128/78
[2020-03-21] MEDS ORDERED: RANEXA500 MG PO (16:06)
== END 2020-03-21 20:02 | disposition home or self-care (01) ==
LOC: D.ER 12:54 → D.M2 15:05 → OBSVTIME 17:54 → D.M2 03-21 20:02
PROVIDERS: ADMIT Family Medicine; ATTEND Family Medicine
DX: I25.110 Atherosclerotic heart disease of native coronary artery with unstable angina pectoris (principal); N17.9 Acute kidney failure, unspecified; E87.1 Hypo-osmolality and hyponatremia; E78.5 Hyperlipidemia, unspecified; I12.9 Hypertensive chronic kidney disease with stage 1 through stage 4 chronic kidney disease, or unspecified chronic kidney disease; N18.9 Chronic kidney disease, unspecified; I42.9 Cardiomyopathy, unspecified

== ENCOUNTER 2021-02-06 02:09 | Inpatient (IN) | payer MEDICAID ==
[~2021-02-06] VITALS: Ht 175.3 cm; Wt 84.1 kg
--- NOTE | ~2021-02-06 | HEMODYNAMI ---
PATIENT:TRENT ALLISON MEDICAL RECORD: [id number] : 60 LOCATION:[facility] D.2109 ADMISSION DATE: 02/06/21 Generatedon::52 Patient name: TRENT ALLISON Patient #: [id number] SSN: [id number] : 1960 Date of study: 02/06/2021 Page: Of Hemodynamic Procedure Report Patient Data Patient Demographics Procedure consent was obtained First Name: TRENT Gender: Male Last Name: KEEGAN : 1960 Middle Initial: BRIAN Age: 60 year(s) Patient #: [id number] Race: SSN: [id number] Additional ID: [id number] Contact details Address: [address] [place] [address] [address] State: [place] City: [place] Zip code: [address] Past Medical History History of disease Date Diagnosis Comments CAD Allergies Allergen Reaction Date Comments Reported Codeine 08/12/2017 Other allergy 11/08/2018 codeine Other allergy 03/21/2020 codeine Other allergy 10/28/2020 CODEINE Codeine 02/06/2021 Admission Admission Data Admission Date: 02/06/2021 Admission Time: 3:05 Room #: D.2109 Height (in.): 68.9 BSA: 2 (m2) Height (cm.): 175 BMI: 27.43 (kg/m2) Weight (lbs.): 185.19 Weight (kg.): 84 Lab Results Lab Result Date: 02/06/2021 Lab Result Time: 0:00 Biochemistry Name Units Result Min Max BUN mg/dl 21 --(----)-* 7 18 Creatinine mg/dl 1.9 --(----)-* 0.6 1.3 eGFR ml/min 39 *-(----)-- 90 120 NONAFRICAN CBC Name Units Result Min Max Hematocrit % 43.5 --(*---)-- 42 54 Hemoglobin g/dl 14.8 --(-*--)-- 13.5 17.5 Procedure Procedure Types Cath Procedure Diagnostic Procedure [facility] w/Coronaries w/Grafts Sedation Charges Moderate Sedation 25-39 minutes Procedure Description Procedure Date Procedure Date: 02/06/2021 Procedure Start Time: 9:18 Procedure End Time: 9:49 Procedure Staff Name Function Raheem Ferguson MD Performing Physician Matilda Herron RT Monitor Leah Fuentes RT Scrub Saniya Grissom RN Nurse Procedure Data Cath Procedure Fluoroscopy Diagnostic fluoroscopy Total fluoroscopy Time: 4.6 time: 4.6 min min Diagnostic fluoroscopy Total fluoroscopy dose: 837 dose: 837 mGy mGy Contrast Material Contrast Material Type Amount (ml) Isovue 300 61 Entry Location Entry Primary Successful Side Size Upsize Upsize Entry Closure Succes sful Closure Location (Fr) 1 (Fr) 2 (Fr) Remarks Device Remarks Femoral Right 6 Fr Exoseal artery Short Estimated blood loss: 5 ml Diagnostic catheters Device Type Used For End Catheter Placement MULTIPACK JL 4.0 5Fr Procedure catheter DIAGNOSTIC AR MOD 5Fr Procedure Catheter ([id number]) MULTIPACK Pigtail 5 Fr Procedure catheter Procedure Complications No complications Procedure Medications Medication Administration Route Dosage Oxygen etCO2 Nasal cannula 2 l/min Lidocaine 2% added to field 20 Heparin Flush Bag added to field 2 bags (1000units/500ml NS) 0.9% NaCl I.V. 100 ml/hr Versed I.V. 1.5 mg Fentanyl I.V. 50 mcg Hemodynamics Rest BSA: 2 (m2) HGB: 14.8 (g/dl) O2 Consumption: Estimated: 238.17 (ml/min) O2 Consu mption indexed: Estimated:119.08 (ml/min/m) Heart Rate: 74 (bpm) Pressure Samples Time Site Value (mmHg) Purpose Heart Use Rate(bpm) 9:34 LV 105/4,22 Snapshot 72 9:40 AO 114/65(83) Pullback 72 9:40 LV 102/5,18 Pullback 72 Gradients Valve Time Site 1 Site 2 Mean SEP/DFP Peak To Heart Use (mmHg) (sec/min) Peak Rate (mmHg) (bpm) Aortic 9:40 LV AO 0 8 0 72 102/5,18 114/65(83) Calculations Valve P-P Mean Valve Index Valve Source Name Gradient Area Flow (cm2) Aortic 0 0 0 0 Snapshots Pre Cath Intra NCS Post Cath Vital Signs Time Heart Resp SPO2 etCO2 NIBP (mmHg) Rhythm Pain Sedation Rate (ipm) (%) (mmHg) Status Level (bpm) 9:07:26 71 16 98 0 131/91(114) NSR 0 (11) 10(A) , No pain 9:11:36 73 14 97 26.2 128/83(97) NSR 0 (11) 10(A) , No pain 9:15:48 73 12 98 31.5 122/75(90) NSR 0 (11) 10(A) , No pain 9:20:00 71 12 98 31.5 116/74(99) NSR 0 (11) 9(A) , No pain 9:24:08 70 14 98 30.7 113/79(93) NSR 0 (11) 9(A) , No pain 9:28:06 74 14 98 30.7 109/81(104) NSR 0 (11) 9(A) , No pain 9:32:13 71 14 98 30.7 110/75(98) NSR 0 (11) 9(A) , No pain 9:36:21 73 15 97 31.5 120/77(100) NSR 0 (11) 9(A) , No pain 9:40:29 73 14 97 30 110/79(92) NSR 0 (11) 9(A) , No pain 9:44:39 74 13 97 26.2 97/68(90) NSR 0 (11) 10(A) , No pain 9:48:38 71 13 97 30 109/78(89) NSR 0 (11) 10(A) , No pain Medications Time Medication Route Dose Verified Delivered Reason Notes Effe ctiveness by by 9:08:37 Oxygen etCO2 2 Raheem Buffie used for Nasal l/min Marty Grissom RN procedure cannula 9:08:48 Lidocaine 2% added 20ml Raheem Raheem for local to vial Marty Ferguson MD anesthetic field 9:08:56 Heparin Flush added 2 Raheem Raheem used for Bag to bags Marty Ferguson MD procedure (1000units/500ml field NS) 9:09:06 0.9% NaCl I.V. 100 Raheem Buffie Per ml/hr Marty Grissom RN physician 9:16:52 Versed I.V. 1.5 Raheem Kothari for mg Marty Grissom RN sedation 9:16:57 Fentanyl I.V. 50 Raheem Kothari for mcg Marty Grissom RN sedation Procedure Log Time Note 8:29:19 Informed consent obtained and on chart 8:44:11 Procedure Status Urgent Heart Cath (IP). 8:44:12 Time tracking: Regular hours (M-F 7:00 - 5:00) 8:44:16 Plan of Care:Hemodynamics will remain stable., Cardiac rhythm will remain stable., Comfort level will be maintained., Respiratory function will remain adequate., Patient/ family verbilizes understanding of procedure., Procedure tolerated without complication., Recovers from procedure without complications.. 8:44:25 Leah Fuentes RT(R) sent for patient. Start room use. 8:44:29 H&P Date Dictated: 02/06/2021 ER History on chart.. 8:44:35 Patient allergic to Codeine 9:04:19 Patient received from Med II to CCL 1 Alert and oriented. Tansferred to table in Supine position. 9:04:20 Warm blankets applied, and carole hugger turned on for patient comfort. 9:04:20 Correct patient and procedure confirmed by team. 9:04:21 ECG and BP/O2 sat monitors applied to patient. 9:04:22 Vital chart was started 9:04:25 Baseline sample Acquired. 9:04:28 Rhythm: sinus rhythm 9:04:29 Full Disclosure recording started 9:04:30 Pre-procedure instructions explained to patient. 9:04:30 Pre-op teaching completed and patient verbalized understanding. 9:04:32 Family in patients room. 9:04:33 Patient NPO since Midnight. 9:04:35 Is patient on blood thinner?Yes 9:04:37 ACC The patient was administered the following blood thiners within the last 24 hours: ACCPlavix 9:04:39 Patient diabetic? No. 9:04:42 Previous problem with sedation/anesthesia? No ? 9:04:44 Snore? Yes 9:04:45 Sleep apnea? No 9:04:46 Deviated septum? No 9:04:47 Opens mouth fully? Yes 9:04:48 Sticks out tongue? Yes 9:04:50 Airway obstruction? No ? 9:04:53 Dentures? No ? 9:05:03 Pre procedure: right dorsailis pedis pulse 1+ Palpable, but thready & weak; easily obliterated 9:05:08 Patient pain scale 0/10 ?. 9:05:15 IV patent on arrival in left forearm with 0.9% NaCl at O. 9:06:11 Lab Result : BUN 21 mg/dl 9:06:11 Lab Result : eGFR NONAFRICAN 39 ml/min 9:06:11 Lab Result : Creatinine 1.9 mg/dl 9:06:11 Lab Result : Hematocrit 43.5 % 9:06:11 Lab Result : Hemoglobin 14.8 g/dl 9:06:15 Lab results completed and on chart. 9:07:37 Right groin area was prepped with chlora-prep and draped in sterile fashion 9:07:38 Alarms reviewed by R. N. 9:07:38 Sharps counted by scrub and verified by R.N. 9:08:37 Oxygen 2 l/min etCO2 Nasal cannula was administered by Saniya Grissom RN; used for procedure; Verbal order read back and verified. 9:08:48 Lidocaine 2% 20ml vial added to field was administered by Raheem Ferguson MD; for local anesthetic; Verbal order read back and verified. 9:08:56 Heparin Flush Bag (1000units/500ml NS) 2 bags added to field was administered by Raheem Ferguson MD; used for procedure; Verbal order read back and verified. 9:09:06 0.9% NaCl 100 ml/hr I.V. was administered by Saniya Grissom RN; Per physician; Verbal order read back and verified. 9:09:24 Use device set Femoral Dx 9:09:25 ACIST Syringe (47109) opened to sterile field. 9:09:25 Bag Decanter () opened to sterile field. 9:09:26 ACIST Hand Control (11364) opened to sterile field. 9:09:27 ACIST Manifold (63072) opened to sterile field. 9:09:28 Tegaderm 4 x 4 (1626W) opened to sterile field. 9:09:29 Medline Cath Pack ([id number]) opened to sterile field. 9:09:30 DIAGNOSTIC Multipack 5Fr catheter set ([id number]) opened to sterile field. 9:09:31 EMERALD Guide Wire (003-583) opened to sterile field. 9:09:39 SHEATH 6FR Todd (UPS861) opened to sterile field. 9:10:14 SHEATH 6FR Destination (RSR01) opened to sterile field. 9:14:11 --------ALL STOP TIME OUT------ 9:14:12 Final Timeout: patient, procedure, and site verified with staff and physician. All members of the team are in agreement. 9:14:14 Right groin site verified by team. 9:14:18 Fire Safety Assessment: A--An alcohol-based skin anteseptic being used preoperatively., C--Open oxygen or nitrous oxide is being used., D--An ESU, laser, or fiber-optic light is being used. 9:14:20 Physical assessment completed. ASA score P 2 - A patient with mild systemic disease as per Raheem Ferguson MD. 9:14:37 3b) 30-44 Moderately reduced kidney function. 9:14:39 Maximum allowable contrast dose (3.7 X eGFR X 0.75)? ml. 9:14:42 Sedation plan: IV Moderate Sedation Medication:Versed, Fentanyl 9:15:04 Patient Weight : 185.19 lbs 9:15:07 Patient Height : 68.9 inches 9:15:23 Stress Test: no; N/A NSTEMI 9:16:52 Versed 1.5 mg I.V. was administered by Saniya Grissom RN; for sedation; Verbal order read back and verified. 9:16:57 Fentanyl 50 mcg I.V. was administered by Saniya Grissom RN; for sedation; Verbal order read back and verified. 9:18:47 Procedure started. 9:18:50 Local anesthetic to right femoral artery with Lidocaine 2% by Raheem Ferguson MD.INITIAL ACCESS ONLY 9:21:35 Zero performed for pressure channel P1 9:22:30 A 6 Fr Short sheath was inserted into the Right Femoral artery 9:23:15 short sheath exchanged for long sheath 9:27:02 A MULTIPACK JL 4.0 5Fr catheter was advanced over the wire and used for Procedure. 9:30:03 LCA angiography performed. 9:30:05 Catheter exchanged over wire. 9:30:40 A DIAGNOSTIC AR MOD 5Fr Catheter ([id number]) was advanced over the wire and used for Procedure. 9:31:42 RCA angiography performed. 9:32:26 SVG to Diag AND LADangiography performed. 9:33:24 SVG to Circ angiography performed. 9:33:26 Catheter exchanged over wire. 9:33:31 A MULTIPACK Pigtail 5 Fr catheter was advanced over the wire and used for Procedure. 9:34:42 LV gram done using DOLAN 9:34:44 Injector settings: Ml/sec: 10, Volume: 20, 9:35:00 LV hemodynamics recorded. 9:35:57 EF : 35 % 9:40:46 Catheter removed. 9:41:13 EXOSEAL 6Fr (EX600) opened to sterile field. 9:43:56 long sheath exchanged for short sheath 9:44:05 Sheath removed intact; hemostasis achieved with Exoseal to the Right Femoral artery. 9:44:41 Procedure ended.(Physican Out) 9:45:17 Fluoroscopy time 04.60 minutes. 9:45:23 Flurop Dose total: 837 9:45:23 Fluoroscopy dose: 837 mGy 9:45:30 Dose Area Product 13759 mGy/cm. 9:45:32 Contrast amount:Isovue 300 61ml. 9:45:35 Maximum allowable dose exceeded? No. 9:45:39 Sharps counted by scrub and verified by R.N. 9:46:55 Post-op/insertion site Right Femoral artery dressed using a 4 x 4 and Tegaderm. 9:46:58 Post-procedure physical assessment completed. ASA score P 2 - A patient with mild systemic disease as per Raheem Ferguson MD. 9:47:01 Post procedure rhythm: sinus rhythm 9:47:05 Estimated blood loss: 5 ml 9:47:06 Post procedure instruction explained to patient.Patient verbalizes understanding. 9:47:06 Patient needs reinforcement of post procedure teaching. 9:47:49 Procedure type changed to Cath procedure, Diagnostic procedure, LHC, LHC w/Coronaries w/Grafts, Sedation Charges, Moderate Sedation 25-39 minutes 9:48:07 Procedure and supply charges have been captured, reviewed, submitted and are correct. 9:48:08 Procedure Complication : No complications 9:48:11 LHC Findings: mild to moderate CAD (<70%) 9:48:12 Vital chart was stopped 9:48:15 Operative report dictated upon procedure completion. 9:48:15 See physician's report for complete and final results. 9:48:19 Report given to [facility]. 9:48:24 Patient transfered to [facility] with Bed. 9:49:12 Procedure ended. 9:49:12 Full Disclosure recording stopped 9:49:18 End room use (Document Last) 9:51:49 Procedure ended.(Physican Out) Device Usage Item Name Manufacture Quantity Catalog Hospital Part Current Minimal L ot# / Number Charge Number Stock Stock Serial# Code ACIST Acist 1 44686 299596 079386 652625 20 Syringe Medical (30317) Systems Inc Bag Microtek 1 795240 16097 313042 5 Decanter Medical Inc. () ACIST Hand Acist 1 30116 698388 534533 028762 5 Control Medical (42153) Systems Inc ACIST Acist 1 10869 064880 742751 512339 5 Manifold Medical (23454) Systems Inc Tegaderm 4 3M 1 1626W 972637 599147 254748 5 x 4 (1626W) Medline Medline 1 [id number] 864498 92956 019182 5 Cath Pack ([id number]) DIAGNOSTIC Cardinal 1 [id number] 109134 78983 030736 30 Multipack Health 5Fr catheter set (YA8146) EMERALD Cardinal 1 502-455 433085 356559 537997 5 Guide Wire Health (502-455) SHEATH 6FR Terumo 1 HNP920 869924 139488 399129 40 Todd (GJH152) SHEATH 6FR Terumo 1 RSR01 412280 43196 019793 5 Destination (RSR01) MULTIPACK Cardinal 1 355204 5 JL 4.0 5Fr Health catheter DIAGNOSTIC Cardinal 1 [id number] 376921 071121 329713 15 AR MOD 5Fr Health Catheter (254208J) MULTIPACK Cardinal 1 768805 5 Pigtail 5 Health Fr catheter EXOSEAL 6Fr Cardinal 1 EX600 931278 572468 775609 10 (EX600) Health Signature Audit [place] Stage Time Signature Unsigned Intra-Procedure 02/06/2021 Matilda Herron 9:49:38 AM RT(R) Intra-Procedure 02/06/2021 Saniya Grissom RN 9:51:49 AM Intra-Procedure 02/06/2021 Raheem Ferguson MD 9:52:21 AM [facility] [address] [facility] [place] [address]
[~2021-02-06 02:09] MED LIST changes: +ALDACTONE25 MG PO; +ISOSORBIDE MONO30 M1 PO; +METOPROLOL TART25 MG PO; +RANEXA500 MG PO
[2021-02-06] MEDS ORDERED: NITROSTAT0.4 MG SL (02:32)
[2021-02-06] MEDS ORDERED: BAYER CHEWABLE81 MG PO (02:32)
[2021-02-06 02:33] LABS: BASOPHILS 0.2 % (0-2); EOSINOPHILS 1.2 % (0-7); HEMATOCRIT 43.5 % (42.0-54.0); HEMOGLOBIN 14.8 g/dL (13.5-17.5); IMMATURE GRANULOCYTES 0.4 % (0-5); LYMPHOCYTE ABS# 2.98 10x3/uL (1.32-3.57); LYMPHOCYTES 25.4 % (15-50); MCH 30.6 pg (26.0-34.0); MCV 89.9 fL (80.0-100.0); MEAN PLATELET VOLUME 10.4 fL (7.4-10.4); MONOCYTES 14.1 % (2-11); NEUTROPHIL ABS# 6.89 10x3/uL (1.78-5.38); NEUTROPHILS 58.7 % (40-80); RBC 4.84 10x6/uL (4.20-6.10); WBC 11.7 10x3/uL (4.8-10.8)
[2021-02-06] MEDS ORDERED: LISINOPRIL5 MG PO (02:33)
[2021-02-06 02:35] LABS: PLATELET COUNT 212 10x3/uL (130-400)
[2021-02-06 02:39] LABS: CALC OSMOLALITY 272 mosm/kg (275-300); CALCIUM 8.4 mg/dL (8.5-10.1); CARBON DIOXIDE 21.9 mmol/L (21.0-32.0); CHLORIDE - SERUM 102 mmol/L (98-107); CREATININE - SERUM 1.9 mg/dL (0.6-1.3); GLUCOSE 100 mg/dL (74-106); POTASSIUM - SERUM 3.8 mmol/L (3.5-5.1); SODIUM 135 mmol/L (136-145); UREA NITROGEN 21 mg/dL (7-18); eGFR NON AFRICAN AMERICAN 39 mL/min (90-120)
[2021-02-06 03:05] LABS: ALBUMIN 3.2 g/dL (3.4-5.0); ALKALINE PHOSPHATASE 102 U/L (30-120); ALT (SGPT) 21 U/L (10-68); BILIRUBIN - TOTAL 0.47 mg/dL (0.2-1.3); CHOLESTEROL, TOTAL 162 mg/dL (0-200); CREATINE KINASE 334 UL (21-232); HDL CHOLESTEROL 41 mg/dL (32-96); LDL CHOLESTEROL 87 mg/dL (0-100); LDL-HDL RATIO 2.1 ratio (1.5-3.5); PRO BNP 3396 pg/mL (0-125); PROTEIN - SERUM 7.4 g/dL (6.4-8.2); TRIGLYCERIDE 174 mg/dL (30-200)
[2021-02-06 03:08] LABS: TROPONIN-I 18.171 ng/mL (0.000-0.060)
[2021-02-06 03:09] LABS: CKMB 26.1 U/L (0.0-3.6)
--- NOTE | 2021-02-06 04:09 | NUR ---
PT TO ROOM FROM ER, SPOUSE AT BEDSIDE. PT UP IN CHAIR, DENIES CP/SOB/NAUSEA. STATES HE FEELS MUCH BETTER THEN HE HAD BEEN. PT NPO SINCE MIDNIGHT FOR CARDIOLOGY CONSULT. STATED HE HAD 4 BABY ASPIRIN AFTER LEAVING THE [facility] AND COMING TO THIS ER. PT DOES NOT APPEAR TO BE IN ANY DISTRESS, HR 87 SINUS RHYTHM PER SOFTWARE SUPPORT TECHNICIAN. DENIES NEEDS, CL IN REACH AND EDUCATED ON USE. WILL MONITOR
[2021-02-06 05:25] VITALS: BP 112/77
[2021-02-06 06:30] VITALS: BP 112/77; Ht 175.3 cm; Wt 84.1 kg
[2021-02-06 08:42] VITALS: BP 129/90
[2021-02-06 12:58] VITALS: BP 114/75
[2021-02-06 14:23] LABS: CKMB 15.3 U/L (0.0-3.6); CREATINE KINASE 208 UL (21-232); TROPONIN-I 14.071 ng/mL (0.000-0.060)
[2021-02-06 16:00] VITALS: BP 140/73
[2021-02-06 21:31] VITALS: BP 152/96
[2021-02-07 01:11] VITALS: BP 134/80
[2021-02-07 05:14] LABS: BASOPHILS 0.3 % (0-2); EOSINOPHILS 1.7 % (0-7); HEMOGLOBIN 13.4 g/dL (13.5-17.5); IMMATURE GRANULOCYTES 0.5 % (0-5); LYMPHOCYTE ABS# 2.26 10x3/uL (1.32-3.57); LYMPHOCYTES 25.9 % (15-50); MCH 29.8 pg (26.0-34.0); MCHC 32.7 g/dL (31.0-37.0); MCV 91.3 fL (80.0-100.0); MEAN PLATELET VOLUME 10.5 fL (7.4-10.4); MONOCYTES 15.6 % (2-11); NEUTROPHIL ABS# 4.88 10x3/uL (1.78-5.38); PLATELET COUNT 196 10x3/uL (130-400); RBC 4.49 10x6/uL (4.20-6.10); RDW 14.2 % (11.5-14.5)
[2021-02-07 05:18] LABS: WBC 8.7 10x3/uL (4.8-10.8)
[2021-02-07 05:19] VITALS: BP 132/90
[2021-02-07 05:59] LABS: ALBUMIN 2.7 g/dL (3.4-5.0); ANION GAP 14.4 mmol/L (8-16); BILIRUBIN - TOTAL 0.54 mg/dL (0.2-1.3); CALCIUM 8.3 mg/dL (8.5-10.1); CARBON DIOXIDE 22.3 mmol/L (21.0-32.0); CREATININE - SERUM 1.8 mg/dL (0.6-1.3); MAGNESIUM - SERUM 2.2 mg/dL (1.8-2.4); POTASSIUM - SERUM 3.7 mmol/L (3.5-5.1); PROTEIN - SERUM 6.5 g/dL (6.4-8.2)
[2021-02-07 07:30] VITALS: BP 143/93
[2021-02-07] MEDS ORDERED: METOPROLOL TART50 MG PO (09:53)
--- NOTE | 2021-02-07 17:12 | MORECARE ---
CASE MANAGEMENT DISCHARGE SUMMARY PATIENT: TRENT ALLISON UNIT: [id number] ADM DATE: 02/06/21 AGE: 60 : 60 SEX: M ROOM/BED: D.2102 AUTHOR: APZ,DOC PHYSICIAN: REFERRING PHYSICIAN: MENA TAM DO DATE OF SERVICE: 02/07/21 Case Management Discharge Planning Summary COMMENTS ENTERED DATE: 02/07/21 17:10 CT COMMENT TYPE: Discharge Planning REVIEWER: Tom Cox CM met with patient to complete DC plan and to evaluate needs. Patient lives independently with his significant other, Sade Briggs, . Patient stated that their home is safe and has electricity and running water. Patient stated that he has no problems paying for medications and he fills his medications at [facility]. Patient stated that his primary care physician is Dr. Tam. At discharge, the patient plans to return home and feels this is a safe discharge. CM discussed availability of home health, rehab services, and medical equipment. Patient declined HHS, SNF, IPR, and DME. Patient voiced no other needs at this time and is satisfied with DC plan. Transportation provider at discharge will be with Sade Briggs. CM will continue to follow and will assist as needed with dc plans/needs DCP REVIEW SUMMARY ANTICIPATED D/C DATE: 02/07/2021 EXPECTED LOS : 1 CASE STATUS: DCP Initiated INITIAL REVIEW: 02/06/2021 INITIAL REVIEWER: Tom Cox FINAL DISCHARGE DISPOSITION: : FINAL REVIEWER: FINAL REVIEW DATE: DCP Focus Questions & Answers DCP Evaluation QUESTION: ANSWER Patient gives permission to discuss discharge plans with: (name, relationship and number) : significant other, Sade Briggs, Patient's ability to cope with chronic illness : d. No chronic illness Patient's current cognitive status: : *Oriented to person, place, situation, time and present Family / Caregiver's ability to cope with chronic illness: : a. Adequate (ability to meet patient's medical needs, ensures patient attends medical appts.) Patient and/or caregiver agree upon recommended discharge plan? : Yes Physical Status: : Independent with ADL's Family / Caregiver's ability to cope with chronic illness: : a. Adequate (ability to meet patient's medical needs, ensures patient attends medical appts.) Functional screen assessment: : Basic needs can adequately be met by self Does the patient have the ability to pay for or attain post discharge needs / services? : Yes Living Arrangements: : Home with Designated Caregiver Is there a likelihood that the patient will require additional services to return to the preadmission environment? : No Equipment needed for post hospitalization: : None Baseline cognitive status: : *Oriented to person, place, situation, time and present Patient with capacity for self-care or can be cared for in same environment as prior to hospitalization? : Yes Physical environment modification needed / anticipated for discharge: : No Medication Management: : Patient states can afford medications Medication Management: : Patient states can read and understand medication labels Pharmacy name(s): : [facility] Does Patient have transportation to get home and to follow-up medical appointments when discharged from the hospital? : Yes Would patient like to participate in any Care Coordination programs (if applicable): : Not applicable Does the patient have electricity at home? : Yes Does the patient have running water in their house? : Yes Equipment in use: : None Mental health screen: : No mental health history DCP Re-evaluation QUESTION: ANSWER Would patient like to participate in any Care Coordination programs (if applicable): : Not applicable PATIENT: TRENT ALLISON ENCOUNTER: [id number] MEDICAL RECORD#: [id number] ADMISSION DATE: 02/06/2021 DISCHARGE DATE: 02/07/2021 ATTENDING MD: MENA ADAMES : AGE: 60 MARITAL STATUS: W DC PLAN ID: [id number] FACILITY: [facility] PRINTED ON: 02/07/21 17:12 CT All edits/amendments must be made on the electronic document DICTATION DATE: 02/07/211711 NPS: DM 02/07/211711 RPT#: [id number] DC DATE:02/07/21 STATUS: DIS IN [facility] [address] [place] [address] END OF REPORT
--- NOTE | 2021-02-09 14:21 | MORECARE ---
CASE MANAGEMENT DISCHARGE SUMMARY PATIENT: TRENT ALLISON UNIT: [id number] ADM DATE: 02/06/21 AGE: 60 : 60 SEX: M ROOM/BED: D.2104 AUTHOR: PAZ,DOC PHYSICIAN: REFERRING PHYSICIAN: MENA TAM DO DATE OF SERVICE: 02/09/21 Case Management Discharge Planning Summary COMMENTS ENTERED DATE: 02/07/21 17:10 CT COMMENT TYPE: Discharge Planning REVIEWER: Tom Cox CM met with patient to complete DC plan and to evaluate needs. Patient lives independently with his significant other, Sade Chester, . Patient stated that their home is safe and has electricity and running water. Patient stated that he has no problems paying for medications and he fills his medications at [facility]. Patient stated that his primary care physician is Dr. Tam. At discharge, the patient plans to return home and feels this is a safe discharge. CM discussed availability of home health, rehab services, and medical equipment. Patient declined HHS, SNF, IPR, and DME. Patient voiced no other needs at this time and is satisfied with DC plan. Transportation provider at discharge will be with Sade Briggs. CM will continue to follow and will assist as needed with dc plans/needs DCP REVIEW SUMMARY ANTICIPATED D/C DATE: 02/07/2021 EXPECTED LOS : 1 CASE STATUS: DCP Initiated INITIAL REVIEW: 02/06/2021 INITIAL REVIEWER: Tom Cox FINAL DISCHARGE DISPOSITION: : FINAL REVIEWER: FINAL REVIEW DATE: DCP Focus Questions & Answers DCP Evaluation QUESTION: ANSWER Patient's current cognitive status: : *Oriented to person, place, situation, time and present Patient's ability to cope with chronic illness : d. No chronic illness Patient gives permission to discuss discharge plans with: (name, relationship and number) : significant other, Sade Briggs, Patient and/or caregiver agree upon recommended discharge plan? : Yes Family / Caregiver's ability to cope with chronic illness: : a. Adequate (ability to meet patient's medical needs, ensures patient attends medical appts.) Functional screen assessment: : Basic needs can adequately be met by self Physical Status: : Independent with ADL's Does the patient have the ability to pay for or attain post discharge needs / services? : Yes Family / Caregiver's ability to cope with chronic illness: : a. Adequate (ability to meet patient's medical needs, ensures patient attends medical appts.) Equipment needed for post hospitalization: : None Is there a likelihood that the patient will require additional services to return to the preadmission environment? : No Living Arrangements: : Home with Designated Caregiver Baseline cognitive status: : *Oriented to person, place, situation, time and present Patient with capacity for self-care or can be cared for in same environment as prior to hospitalization? : Yes Physical environment modification needed / anticipated for discharge: : No Medication Management: : Patient states can afford medications Medication Management: : Patient states can read and understand medication labels Pharmacy name(s): : [facility] Does Patient have transportation to get home and to follow-up medical appointments when discharged from the hospital? : Yes Would patient like to participate in any Care Coordination programs (if applicable): : Not applicable Does the patient have electricity at home? : Yes Does the patient have running water in their house? : Yes Equipment in use: : None Mental health screen: : No mental health history DCP Re-evaluation QUESTION: ANSWER Would patient like to participate in any Care Coordination programs (if applicable): : Not applicable PATIENT: TRENT ALLISON ENCOUNTER: [id number] MEDICAL RECORD#: [id number] ADMISSION DATE: 02/06/2021 DISCHARGE DATE: 02/07/2021 ATTENDING MD: MENA ADAMES : AGE: 60 MARITAL STATUS: W DC PLAN ID: [id number] FACILITY: [facility] PRINTED ON: 02/09/21 14:21 CT All edits/amendments must be made on the electronic document DICTATION DATE: 02/09/211420 JINRIKSHA DRIVER: KARISSA 02/09/21 142 RPT#: [id number] DC DATE:02/07/21 STATUS: DIS IN [facility] [address] [place] [address] END OF REPORT
== END 2021-02-07 11:34 | disposition home or self-care (01) | DRG 282 ==
LOC: D.ER 02:09 → OBSVTIME 03:05 → D.M2 03:05
PROVIDERS: Emergency Medicine; Family Medicine; Internal Medicine Cardiovascular Disease; ADMIT Family Medicine; ATTEND Family Medicine
PROC: B2111ZZ Fluoroscopy of Multiple Coronary Arteries using Low Osmolar Contrast (ICD-10-PCS; 2021-02-06)
PROC: B2151ZZ Fluoroscopy of Left Heart using Low Osmolar Contrast (ICD-10-PCS; 2021-02-06)
PROC: 4A023N7 Measurement of Cardiac Sampling and Pressure, Left Heart, Percutaneous Approach (ICD-10-PCS; 2021-02-06)
PROC: B2131ZZ Fluoroscopy of Multiple Coronary Artery Bypass Grafts using Low Osmolar Contrast (ICD-10-PCS; principal; 2021-02-06 08:44)
DX: I21.4 Non-ST elevation (NSTEMI) myocardial infarction (principal); I25.110 Atherosclerotic heart disease of native coronary artery with unstable angina pectoris; E78.5 Hyperlipidemia, unspecified; I12.9 Hypertensive chronic kidney disease with stage 1 through stage 4 chronic kidney disease, or unspecified chronic kidney disease; N18.30 Chronic kidney disease, stage 3 unspecified

== ENCOUNTER → 2021-03-18 08:47 | Outpatient (CLI) | payer BC ==
[~2021-03-18 08:47] MED LIST changes: +BAYER CHEWABLE81 MG PO; +LISINOPRIL5 MG PO; +METOPROLOL TART50 MG PO; +NITROSTAT0.4 MG SL
== END | disposition home or self-care (01) ==
LOC: D.CT 08:47
PROVIDERS: ATTEND Internal Medicine Cardiovascular Disease
DX: I71.4 Abdominal aortic aneurysm, without rupture (principal); I73.9 Peripheral vascular disease, unspecified